=== PATIENT | male | born 1955 | race Hispanic/Latino ===

== ENCOUNTER 2018-12-18 19:52 | Inpatient (IN) | payer BC, MEDICARE ==
[2018-12-18 20:39] LABS: #Eosinphils 0.1 thou/uL (0.0-0.7); #Lymphocytes 0.9 thou/uL (1.20-3.40); #Monocytes 0.6 thou/uL (0.11-0.59); #Neutrophils 9.5 thou/uL (1.40-6.50); %Basophils 0.3 % (0.0-1.0); %Eosinophils 0.8 % (0.0-10.0); %Lymphocytes 8.1 % (21.0-51.0); %Monocytes 5.6 % (0.0-10.0); %Neutrophils 85.2 % (42.0-75.0); Hemoglobin 9.9 g/dL (14.0-18.0); Mean Corpuscular HGB CONC 32.8 g/dL (32.0-36.0); Mean Corpuscular Hemoglobin 30.2 pg (27.0-31.0); Platelet Count 381 thou/uL (130-400); RBC Distribution Width 11.8 % (11.5-14.5); Red Blood Cell (RBC) Count 3.27 mill/uL (4.70-6.10); White Blood Cell (WBC) Count 11.1 thou/uL (4.8-10.8)
--- NOTE | 2018-12-18 20:48 | RAD ---
FRONTAL RADIOGRAPH CHEST 12/18/18 COMPARISON: 01/08/17 HISTORY: Fever, sepsis. FINDINGS: Midline sternotomy wires are present, many of which are fractured. Heart and mediastinal contours are stable. there is no pneumothorax, pleural fluid, focal consolidation, or alveolar edema. IMPRESSION: No acute findings. POS: [facility]
[2018-12-18] MEDS ORDERED: Piperacillin/Tazobactam 3.375 GM VIAL ONE (20:52)
[2018-12-18 20:56] LABS: ALT (SGPT) 10 U/L (8-55); AST (SGOT) 17 U/L (5-34); Albumin 3.4 g/dL (3.4-4.8); Alkaline Phosphatase 122 U/L (40-150); Anion Gap 12 mmol/L (10-20); BUN (Urea Nitrogen) 19 mg/dL (8.4-25.7); Bilirubin, Total 0.3 mg/dL (0.2-1.2); Calc. Creatinine Clearance 0 mL/min (70-130); Calcium 8.9 mg/dL (7.8-10.44); Carbon Dioxide 21 mmol/L (23-31); Chloride 100 mmol/L (98-107); Estimated GFR-MDRD 39; Globulin 4.1 g/dL (2.4-3.5); Glucose 71 mg/dL (80-115); Potassium 4.3 mmol/L (3.5-5.1); Protein, Total 7.5 g/dL (5.8-8.1); Sodium 129 mmol/L (136-145)
--- NOTE | 2018-12-18 21:29 | PDOC.FPRHP ---
- History of Present Illness Chief Complaint: R great toe infection History of Present Illness: 63 yo M with uncontrolled T2DM, CAD s/p CABG, CKD3 presents for L 1st toe infection. 3 weeks ago had ingrown toenail removed by general counselor, followed by infection. Was admitted at [place], received 1 wk IV antibiotics and then recommended to have amputation. Patient left for 2nd opinion. Saw general counselor, Dr. Calderon @ [facility] who said he could save the foot. Has been on PO Augmentin, with toe worsening since. Presented today for low BG and feeling cold. Denies fever, otherwise feels alright. Intermittent throbbing of foot, denies pain. ED Course: vanc, zosyn, 1L, tylenol - History PMHx: DM2 uncontrolled, CAD, HTN, HLD, CKD3 PSHx: CABG, L leg angioplasty FHx: brother-DM Social: Denies tobacco, alcohol, drug use. - Review of Systems General: reports: fever/chills ENT: denies: nasal congestion, rhinorrhea Respiratory: denies: cough, shortness of breath Cardiovascular: denies: chest pain, edema Gastrointestinal: denies: nausea, diarrhea Skin: reports: lesions (R toe infection) Musculoskeletal: denies: pain - Vital signs BP: 156/104 HR: 116 RR: 24 Tmax: 102.8 Pox: 94% on RA Wt: 80 kg - Physical Exam Constitutional: NAD, awake, alert and oriented HEENT: normocephalic and atraumatic Heart: RRR, normal S1/S2 (systolic murmur heard best at aorta) Lungs: CTAB, no respiratory distress Abdomen: soft, non-tender, bowel sounds present Skin: good turgor, capillary refill <2 seconds, other (L 1st toe infection, dry gangrene worse on L medial side of toe. surrounding erythema) Psychiatric: normal mood and affect FMR H&P: Results - Labs Result Diagrams: 12/18/18 20:20 12/18/18 20:22 Lab results: WBC 11.1 thou/uL (4.8-10.8) H 12/18/18 20:20 Hgb 9.9 g/dL (14.0-18.0) L 12/18/18 20:20 Hct 30.1 % (42.0-52.0) L 12/18/18 20:20 MCV 92.0 fL (78.0-98.0) 12/18/18 20:20 Plt Count 381 thou/uL (130-400) 12/18/18 20:20 Neutrophils % 85.2 % (42.0-75.0) H 12/18/18 20:20 ESR Westergren Greater than 130 mm/hr (Less than 20) 12/18/18 20:20 Sodium 129 mmol/L (136-145) L 12/18/18 20:22 Potassium 4.3 mmol/L (3.5-5.1) 12/18/18 20:22 Chloride 100 mmol/L (98-107) 12/18/18 20:22 Carbon Dioxide 21 mmol/L (23-31) L 12/18/18 20:22 BUN 19 mg/dL (8.4-25.7) 12/18/18 20:22 Creatinine 1.80 mg/dL (0.7-1.3) H 12/18/18 20:22 Glucose 71 mg/dL (80-115) L 12/18/18 20:22 Lactic Acid 0.9 mmol/L (0.5-2.2) 12/18/18 20:22 Calcium 8.9 mg/dL (7.8-10.44) 12/18/18 20:22 Total Bilirubin 0.3 mg/dL (0.2-1.2) 12/18/18 20:22 AST 17 U/L (5-34) 12/18/18 20:22 ALT 10 U/L (8-55) 12/18/18 20:22 Alkaline Phosphatase 122 U/L (40-150) 12/18/18 20:22 C-Reactive Protein 9.34 mg/dL (= or < 0.5) H 12/18/18 20:20 Serum Total Protein 7.5 g/dL (5.8-8.1) 12/18/18 20:22 Albumin 3.4 g/dL (3.4-4.8) 12/18/18 20:22 FMR H&P: A/P - Problem List (1) Sepsis Current Visit: Yes Status: Acute Code(s): A41.9 - SEPSIS, UNSPECIFIED ORGANISM (2) Osteomyelitis Current Visit: Yes Status: Acute Code(s): M86.9 - OSTEOMYELITIS, UNSPECIFIED (3) Dry gangrene Current Visit: Yes Status: Acute Code(s): I96 - GANGRENE, NOT ELSEWHERE CLASSIFIED (4) Diabetes Current Visit: Yes Status: Acute Code(s): E11.9 - TYPE 2 DIABETES MELLITUS WITHOUT COMPLICATIONS (5) CKD (chronic kidney disease), stage III Current Visit: Yes Status: Acute Code(s): N18.3 - CHRONIC KIDNEY DISEASE, STAGE 3 (MODERATE) (6) Hyponatremia Current Visit: Yes Status: Acute Code(s): E87.1 - HYPO-OSMOLALITY AND HYPONATREMIA (7) CAD (coronary artery disease) Current Visit: Yes Status: Acute Code(s): I25.10 - ATHSCL HEART DISEASE OF [place] CORONARY ARTERY W/O ANG PCTRS (8) S/P CABG (coronary artery bypass graft) Current Visit: Yes Status: Acute Code(s): Z95.1 - PRESENCE OF AORTOCORONARY BYPASS GRAFT (9) HTN (hypertension) Current Visit: Yes Status: Acute Code(s): I10 - ESSENTIAL (PRIMARY) HYPERTENSION - Plan Sepsis 2/2 osteomyelitis/dry gangrene of L 1st toe - tachycardia, febrile, increased WBC on admission. Failed outpatient augmentin. - in setting of uncontrolled DM - ESR >130, CRP 9.3, lactic 0.9 - foot XR negative for osseous involvement. MRI pending - continue vanc and zosyn (12/18) started in ED - s/p 1L in ED, continue NS maintenance IVF - plan to consult surgery in am - tylenol prn fever Hyponatremia - Na+ 129 on admission - could be 2/2 hypovolemia. Pending urine studies. - monitor on am bmp T2DM, uncontrolled - A1c 12.1 on 11/12 - Accuchecks, SSI - considering BG 71 in ED and will hold home meds overnight CAD s/p CABG - continue home meds as appropriate pending med rec HTN - continue home meds as appropriate pending med rec CKD3 - GFR 39, appears to be at baseline compared to clinic chart - monitor on bmp Diet NPO after midnight Ppx: Lovenox Dispo: admit to inpatient medical, expected stay >2 midnights Case discussed with Dr. Alonzo. FMR H&P: Upper Level - Pertinent history 63 y/o M w/ PMHx of poorly controlled DM w/ last A1c from 11/12 at 12.1 from clinic records who presents for eval of fever. Reports ingrown toenail removal approx. 3 weeks ago by general counselor w/ subsequent infection. Notes he was admitted to [facility] for about 1 week and d/c'ed on PO augmentin. He was told that he needed his leg amputated (BKA) and stated he wanted to go home for a second opinion. He saw general counselor at [facility] who thought he could save the leg. Reports taking the Augmentin as perscribed, but noted fever low BG at home. Reports chills, otherwise denies any other sxs and reports he feels "all right". Has been tolerating PO w/o issue. No N/V/D. Reports intermittent throbbing of the affected R-big toe, denies any current pain. Denies any CP/SOB. - Pertinent findings BP 156/104 P 107 RR 24 Temp 102.8 degF O2Sat 94% on RA CXR - NAD Foot 3V - NAD ESR >130 CRP - 9.34 WBC - 11.1 Hgb - 9.9 Hct - 30.1 Plt - 381 Neut - 85.2% Na - 129 BUN - 19 Cr -1.8 Gluc - 71 LA - 0.9 PE: Gen: NAD, resting in bed comfortably answering questions appropriately CARD: Tachycardic, 3/6 systolic murmur PULM: CTA-b/l, no wheezes, rubs, or gallops GI: Soft, non-ttp, bsx4. EXT: necrotic black lesion on lateral aspect of 1st digit L-foot w/ minimal surrounding erythema and no drainage noted. - Plan Date/Time: 12/18/182126 Mario Limon. Espinoza Cat MD, have evaluated this patient and agree with findings/plan as outlined by internal audit manager resident. Pertinent changes/additions are listed here. 63 y/o M w/: 1) Sepsis likely 2/2 Osteomyelitis of the 1st digit L-foot - Will place patient on broad spectrum abx w/ Vanc and Zosyn. No drainage for wound Cx to be obtained. BCx and UCx obtained in ER - S/p 2L NS in ER. Will continue w/ standard 30 mL/Kg IVF resuscitation w/ strict I/O's to monitor fluid status - Tylenol PRN for fever and pain control - Will obtain MRI for further eval 2/2 no lytic lesions seen on radiographs - Plan to consult surgery in the AM for further eval and need for possible amputation - Will place on SSI w/ AC/HS accuchecks. Will decrease long acting insulin from 20 units to 10 in setting of low BG w/ infection w/ goal BG 140-180. 2) Hyponatremia - Unsure etiology, possibly 2/2 hypovolemia in setting of #1 - Will obtain urine Na, urine osm, and serum osm to further eval. Will add on to specimens obtained prior to IVF administration - Repeat BMP in the AM for possible resolution s/p IVF rescucitation in setting of #1 3) Other chronic medical problems per internal audit manager note Assessment and Plan discussed w/ Dr. Alonzo who is in agreement
--- NOTE | 2018-12-18 21:40 | RAD ---
RIGHT FOOT THREE VIEWS: 12/18/18 COMPARISON: None. HISTORY: Gangrene. FINDINGS: There is scattered arterial calcifications. There is mild degenerative change at the first metatarsop halangeal joint. There is no displaced fracture or evidence of dislocation seen. There is atherosclerotic calcification at the level of the ankle and plantar aspect of the foot. Ther e is enthesophyte formation at the origin of the plantar aponeurosis. IMPRESSION: Degenerative change and vascular calcification. No acute osseous abnormality noted. POS: [facility]
[2018-12-18] MEDS ORDERED: Acetaminophen 325 MG TAB ONE (23:14)
[2018-12-19] MEDS ORDERED: Dextrose 5% in Water 1,000 ML IV PRN (02:04)
[2018-12-19] MEDS ORDERED: Ondansetron ODT 4 MG TAB PO PRN (02:04)
[2018-12-19] MEDS: Piperacillin/Tazobactam 3.375 GM in Sodium Chloride 0.9% 100 ML IVPB SCH ×4 (04:35→20:59)
[2018-12-19] MEDS: Sodium Chloride 0.9% 1,000 ML IV SCH ×2 (04:43→14:50)
--- NOTE | 2018-12-19 06:35 | PDOC.FM ---
- Subjective Subjective: NAEO. Patient states he is having pain in his left toe this morning. States it is throbbing. Patient also states that he wishes to see Dr. Calderon at [facility]. He states he knows his history and performed surgery on his other foot. Patient states that he does not want another opinion and only wants to see the doctor at [facility] for treatment. - Objective MAR Reviewed: Yes Vital Signs & Weight: Vital Signs (12 hours) Temp Pulse Resp BP Pulse Ox 12/19/18 04:30 97.9 F 81 18 142/71 H 12/18/18 20:01 98.2 F 81 22 H 136/61 96 Weight Weight 80.74 kg Result Diagrams: 12/19/18 06:07 12/19/18 06:07 Phys Exam - Physical Examination Constitutional: NAD HEENT: PERRLA, moist MMs, sclera anicteric Neck: supple, full ROM Respiratory: clear to auscultation bilateral Cardiovascular: RRR Gastrointestinal: soft, non-tender, positive bowel sounds Musculoskeletal: no edema, pulses present dry gangrene of L first metatarsal Neurological: non-focal Psychiatric: normal affect, A&O x 3 Dx/Plan (1) CAD (coronary artery disease) Code(s): I25.10 - ATHSCL HEART DISEASE OF [place] CORONARY ARTERY W/O ANG PCTRS Status: Acute (2) CKD (chronic kidney disease), stage III Code(s): N18.3 - CHRONIC KIDNEY DISEASE, STAGE 3 (MODERATE) Status: Acute (3) Diabetes Code(s): E11.9 - TYPE 2 DIABETES MELLITUS WITHOUT COMPLICATIONS Status: Acute (4) Dry gangrene Code(s): I96 - GANGRENE, NOT ELSEWHERE CLASSIFIED Status: Acute (5) HTN (hypertension) Code(s): I10 - ESSENTIAL (PRIMARY) HYPERTENSION Status: Acute (6) Hyponatremia Code(s): E87.1 - HYPO-OSMOLALITY AND HYPONATREMIA Status: Acute (7) Osteomyelitis Code(s): M86.9 - OSTEOMYELITIS, UNSPECIFIED Status: Acute - Plan Plan: Sepsis 2/2 osteomyelitis/dry gangrene of L 1st toe - tachycardia, febrile, increased WBC on admission. Failed outpatient augmentin. - in setting of uncontrolled DM - A1C 12.1 last month - ESR >130, CRP 9.3, lactic 0.9 - foot XR negative for osseous involvement. MRI pending - continue vanc and zosyn (12/18) started in ED - s/p 1L in ED, continue NS maintenance IVF - Plan was to consult gen surgery today; Patient states that he does not want to see a general surgeon here and would like to see Dr. Calderon, podiatry at [facility]. Will discuss this further with patient on rounds today that we recommend he see a general surgeon for possible amputation of at the least the great toe. If patient still wants to leave, will have patient sign paperwork. Recommend to follow up immediately with Dr. Calderon if he chooses to leave. - tylenol prn for fever Hyponatremia - Na+ 129 on admission -> 130 - could be 2/2 hypovolemia. Urine studies unable to be collected as urine was not collected prior to fluids. - monitor on am bmp T2DM, uncontrolled - A1c 12.1 on 11/12 - Accuchecks, SSI - considering BG 71 in ED and will hold home meds overnight as NPO CAD s/p CABG - continue home meds HTN - continue home meds CKD3 - GFR 39, appears to be at baseline compared to clinic chart - monitor on bmp Diet NPO due to possible procedure Ppx: Lovenox Dispo: monitor on inpatient medical, expected stay >2 midnights Addendum - Attending - Attending Attestation Date/Time: 12/19/18 2284 I personally evaluated the patient and discussed the management with Dr. Hurst. I agree with the History, Examination, Assessment and Plan documented above with any addition or exceptions noted below. Gangrenous L great lateral toe with probable osteomyelitis- ESR >130 and presented with sepsis- on IV Vanc/zosyn. Continue IVF. Patient requesting transfer to [facility] because his outpatient physicians are there. An attempt was made for ER to ER transfer last night but evidently [facility] was full and unable to accept. At this point it would be a lateral transfer to [facility]. Patient initially wanting to leave AMA and go directly to [facility] ER. We discussed that it was his option but that insurance coverage may be an issue and that we are happy to care for him here. He desires to stay and get treatment here. We are getting an MRI and will consult general surgery T2DM- uncontrolled- SSI and then restart home meds once on a diet.] CKD stage III- trend Cr.
[2018-12-19 07:00] LABS: #Monocytes 0.9 thou/uL (0.11-0.59); #Neutrophils 8.2 thou/uL (1.40-6.50); %Basophils 0.1 % (0.0-1.0); %Eosinophils 0.3 % (0.0-10.0); %Lymphocytes 10.1 % (21.0-51.0); %Monocytes 8.6 % (0.0-10.0); %Neutrophils 80.9 % (42.0-75.0); Mean Corpuscular HGB CONC 32.9 g/dL (32.0-36.0); Mean Corpuscular Hemoglobin 30.2 pg (27.0-31.0); Mean Platelet Volume 7.2 fL (7.4-10.4); Platelet Count 340 thou/uL (130-400); RBC Distribution Width 11.9 % (11.5-14.5); Red Blood Cell (RBC) Count 2.96 mill/uL (4.70-6.10); White Blood Cell (WBC) Count 10.1 thou/uL (4.8-10.8)
[2018-12-19 07:11] LABS: Anion Gap 13 mmol/L (10-20); BUN (Urea Nitrogen) 20 mg/dL (8.4-25.7); Calc. Creatinine Clearance 45 mL/min (70-130); Calcium 8.1 mg/dL (7.8-10.44); Carbon Dioxide 20 mmol/L (23-31); Chloride 101 mmol/L (98-107); Estimated GFR-MDRD 35; Glucose 70 mg/dL (80-115); Potassium 4.3 mmol/L (3.5-5.1); Sodium 130 mmol/L (136-145)
[2018-12-19] MEDS: Atorvastatin Calcium 40 MG TAB PO SCH (09:14)
[2018-12-19 09:15] LABS: Bilirubin Negative (Negative); Blood, Urine Moderate (Negative); Clarity CLEAR (Clear); Glucose, Urine (Dipstick) Negative (Negative); Leukocyte Negative (Negative); Nitrite Negative (Negative); Protein, Urine (Dipstick) 300 mg/dL (Neg-Trace); Specific Gravity, Urine 1.009 (1.002-1.036); Urobilinogen 0.2 mg/dL (0.2-1.0)
[2018-12-19] MEDS: Acetaminophen 325 MG TAB PO PRN ×2 (09:15→21:00)
[2018-12-19] MEDS: Aspirin Chewable 81 MG TAB PO SCH (09:15)
[2018-12-19] MEDS: Enoxaparin Sodium 40 MG/0.4 ML SYRINGE SC SCH ×2 (09:16→10:37)
[2018-12-19 09:18] LABS: Urine Culture Reflex No No
[2018-12-19] MEDS: Amlodipine 5 MG TAB PO SCH ×2 (09:23→21:00)
[2018-12-19] MEDS ORDERED: Gadobenate Dimeglumine 529 MG/1 ML (20ML VIAL) ONE (10:27)
[2018-12-19] MEDS ORDERED: Morphine 4 MG/ML VIAL ONE (11:36)
[2018-12-19] MEDS: Morphine 4 MG/ML VIAL SLOW IVP PRN ×3 (11:48→20:55)
[2018-12-19] MEDS: Carvedilol 25 MG TAB PO SCH ×2 (11:50→21:00)
--- NOTE | 2018-12-19 16:25 | MRI ---
MRI OF LEFT FOOT PERFORMED WITH AND WITHOUT CONTRAST ENHANCEMENT: 12/19/18 HISTORY: Left foot pain with swelling x1 week. No history of any open wound. The pain is diffuse. Examination was tailored to the mid to forefoot region. There is uneven fat saturation in the toe region on the postcontrast images. Signal change within the metatarsals and phalanges is normal on the STIR sequence without evidence of any marrow edema change . There are some arthritic changes of the base of the fourth metatarsal and some arthritic change at the level of the first metatarsophalangeal joint. No signs of any stress reaction or fracture. No sof t tissue fluid collections or signs of abscess. IMPRESSION: Unremarkable MRI of the foot. POS: [facility]
[2018-12-19] MEDS: Vancomycin HCl 1.25 GM in Sodium Chloride 0.9% 250 ML 250 ML IVPB SCH (22:14)
--- NOTE | 2018-12-19 22:55 | CON ---
DATE OF CONSULTATION: 12/19/2018 REASON FOR CONSULTATION: Dry gangrene. HISTORY: Mr. Stacy is a 63-year-old gentleman with past medical historyof diabetes, coronary artery disease, peripheral vascular disease, hypertension, chronic kidney disease, and hyperlipidemia. He presented to the emergency room with low blood sugars and feeling cold. He has not been having any fevers, but is complaining of a lot of throbbing pain in his left foot. He underwent removal of an ingrown toenail last month by a conveyor feeder and developed an infection. He was admitted to [place], underwent angiography and was told that he needed a below-knee amputation. He decided to seek a second opinion and has been on oral Augmentin, but states that the toe is getting worse and he is having more pain. He does not think that he saw a vascular surgeon in [place]. OUTPATIENT MEDICATIONS: 1. Glargine 26 units subcutaneous daily. 2. Amlodipine 5 mg p.o. b.i.d. 3. Aspirin 81 mg p.o. daily. 4. Atorvastatin 40 mg p.o. daily. 5. Carvedilol 25 mg p.o. b.i.d. 6. Liraglutide 1.8 mg subcutaneous daily. 7. Fish oil capsule daily. INPATIENT MEDICATIONS: Include; 1. Amlodipine. 2. Aspirin. 3. Atorvastatin. 4. Carvedilol. 5. Lovenox. 6. Fish oil. 7. Sliding scale insulin. 8. Victoza. 9. Zosyn. 10. Vancomycin. ALLERGIES: HE HAS NO KNOWN DRUG ALLERGIES. PAST MEDICAL HISTORY: Uncontrolled diabetes, coronary artery disease, status post four vessel coronary artery bypass grafting, hypertension, hyperlipidemia, and chronic kidney disease, not on dialysis. PAST SURGICAL HISTORY: Four vessel coronary artery disease, angioplasty of the left leg, and right transmetatarsal amputation. FAMILY HISTORY: Diabetes. SOCIAL HISTORY: He does not smoke, drink, or use illicit drugs. He lives independently and is ambulatory. REVIEW OF SYSTEMS: Ten system review of systems is negative except per HPI. He denies any rest pain or claudication. PHYSICAL EXAMINATION: VITAL SIGNS: The patient has been afebrile since admission yesterday. Heart rate 82, respirations 20, 94% saturation on room air, and blood pressure 135/79. GENERAL: Reveals a pleasant gentleman in no acute distress. He is not flushed or toxic in appearance. He is not jaundiced or icteric. HEENT: Unremarkable. NECK: Supple without lymphadenopathy or thyroid nodules. HEART: Regular in its rate and rhythm with a soft systolic murmur. He has a healed sternotomy incision. LUNGS: Clear to auscultation bilaterally. ABDOMEN: Soft, nontender, and nondistended without any palpable masses or hernias. EXTREMITIES: Equal with slightly delayed capillary refill. He has an eschar on the dorsum of his left great toe with some mild erythema extending up onto the forefoot adjacent to this. No fluctuance or drainage. No palpable pulses in the feet. Palpable popliteal pulses bilaterally. No palpable pulses on the right foot, but a healed transmetatarsal amputation. NEUROLOGIC: No focal deficits. PSYCHIATRIC: Alert, oriented, and appropriate. LABORATORY DATA: White count is normal at 10 with a slight left shift of 80%, segmented neutrophils, and hematocrit is 27. Sodium 130, bicarb 20, creatinine 1.95. Glucose has been running on the low in the 70 to 75. UA is positive for protein and moderate blood. DIAGNOSTIC STUDIES: MRI today was unremarkable. ASSESSMENT: Dry gangrene with significant pain. The patient has been told he needs a below-knee amputation and I agreed that it might be very difficult for him to heal amputation distal to this level. I do not think he would heal a toe amputation based on his bedside exam, transmetatarsal amputation is a possibility, but healing this might be difficult as well. 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 He has reconstitution of what looks like posterior tibial vessel to below the ankle, but really no other significant runoff below the ankle. Since he has not seen a vascular surgeon, I have asked Dr. Barnard to see him and give his opinion on whether he might be able to do any sort of intervention to improve the blood flow to his foot; if this is not feasible, then I would like his opinion on whether he would be able to heal anything below a below-knee amputation. I have made the patient n.p.o. after midnight because he does not want to continue with conservative management. He is ready to proceed with below-knee amputation if that is his best option due to the persistent pain in his foot. Job ID: [id number]
--- NOTE | 2018-12-20 00:49 | CON ---
DATE OF CONSULTATION: HISTORY OF PRESENT ILLNESS: This is a 63-year-old gentleman with diabetes, hypertension, and dyslipidemia, who developed an ingrown toenail on his left great toe about 2 weeks ago. Due to pain, he was seen in both [facility] and [place], ultimately going to [facility] due to hospitals being full. He underwent angiography there with no intervention. He then was admitted to [place] due to progressive pain and fever after seeing Dr. Calderon about a week ago and placed on antibiotics. He complains of significant pain. He was febrile with an elevated white count on admission. An x-ray of his foot demonstrated calcified posterior tibial and anterior tibial vessels into the foot. PAST MEDICAL HISTORY: As noted above. PAST SURGICAL HISTORY: Includes coronary artery bypass grafting at [facility] by Dr. Urrutia about 3 years ago. He then underwent transmetatarsal amputation of his right foot after a failed toe amputation about 1 year ago at [facility]. SOCIAL HISTORY: He is no longer a smoker. He is accompanied by his . PHYSICAL EXAMINATION: On examination, he has palpable femoral and popliteal pulses bilaterally with no palpable pedal pulses. He has a well-healed trans met amputation on the right. He has good Doppler signal in his posterior tibial on the right, extending down into the dorsum of his foot. On the left leg, he has a very good posterior tibial signal above the medial malleolus and a fairly well preserved signal at the level of the medial malleolus. However, this signal does not track into the forefoot by Doppler. He has no significant Doppler signal in his dorsalis pedis distribution or peroneal artery distribution. He has some cellulitis extending on the dorsum of his foot over the 1st metatarsal head to about the level of the ankle. His toe was blue with some necrotic skin medially between his 1st and 2nd toes involving his great toe. Tender to palpation, bluish discoloration of the toe. The plantar surface of his foot is nonswollen and nontender. LABORATORY DATA: I have reviewed his angiogram data from [facility] and he has occluded anterior tibial on the left, heavily diseased peroneal that tapers out in the distal calf and the posterior tibial that is patent to the level of medial malleolus, where it has two subtotal occlusions and then the vessel does not go much past the bifurcation into the anterior and posterior branches of the posterior tibial artery. I have reviewed a CT scan from [facility] from about a year ago and it is consistent with the findings on the angiogram. At this time, I think the likelihood of a transmetatarsal healing without inline flow to the foot is unlikely, and I would say probably less than 20% chance. A BKA has a good likelihood of healing. I have discussed this with the patient. He is not really interested in multiple procedures and prefers a leg amputation as the initial procedure. Job ID: [id number]
[2018-12-20] MEDS: Piperacillin/Tazobactam 3.375 GM in Sodium Chloride 0.9% 100 ML IVPB SCH ×4 (02:58→21:55)
[2018-12-20] MEDS: Morphine 4 MG/ML VIAL SLOW IVP PRN ×3 (06:04→22:55)
[2018-12-20 06:32] LABS: #Eosinphils 0.1 thou/uL (0.0-0.7); #Monocytes 0.8 thou/uL (0.11-0.59); #Neutrophils 5.6 thou/uL (1.40-6.50); %Basophils 0.6 % (0.0-1.0); %Eosinophils 1.8 % (0.0-10.0); %Lymphocytes 13.6 % (21.0-51.0); %Monocytes 10.7 % (0.0-10.0); %Neutrophils 73.4 % (42.0-75.0); Hemoglobin 8.7 g/dL (14.0-18.0); Mean Corpuscular Hemoglobin 29.6 pg (27.0-31.0); Mean Corpuscular Volume 92.5 fL (78.0-98.0); Mean Platelet Volume 7.2 fL (7.4-10.4); Platelet Count 298 thou/uL (130-400); RBC Distribution Width 11.9 % (11.5-14.5); Red Blood Cell (RBC) Count 2.94 mill/uL (4.70-6.10); White Blood Cell (WBC) Count 7.6 thou/uL (4.8-10.8)
--- NOTE | 2018-12-20 06:37 | PDOC.FM ---
Addendum entered and electronically signed by Lesly Hurst MD 12/20/18 09:13 : Will give morphine for pain Original Note: - Subjective Subjective: NAEO. Patient reports continued pain on LLE. Patient states he is ready for the procedure and to get rid of his pain. Patient denies SOB, chest pain, abdominal pain, NVD. - Objective MAR Reviewed: Yes Vital Signs & Weight: Vital Signs (12 hours) Temp Pulse Resp BP Pulse Ox 12/20/18 03:35 98.2 F 79 16 125/60 12/20/18 00:05 98.2 F 85 18 119/90 12/19/18 21:00 88 12/19/18 19:58 100.0 F H 88 18 132/67 91 L Weight Admit Weight 80.739 kg Weight 80.74 kg I&O: 12/18/18 12/19/18 12/20/18 06:59 06:59 06:59 Intake Total 1480 Output Total 800 Balance 680 Result Diagrams: 12/20/18 05:46 12/20/18 05:45 Phys Exam - Physical Examination Constitutional: NAD HEENT: PERRLA, moist MMs, sclera anicteric Neck: full ROM Respiratory: clear to auscultation bilateral Cardiovascular: RRR Gastrointestinal: soft, non-tender, no distention, positive bowel sounds necrotic L 1st metatarsal, warm LE, pedal pulse faint Neurological: non-focal Psychiatric: normal affect, A&O x 3 Dx/Plan (1) CAD (coronary artery disease) Code(s): I25.10 - ATHSCL HEART DISEASE OF [place] CORONARY ARTERY W/O ANG PCTRS Status: Acute (2) CKD (chronic kidney disease), stage III Code(s): N18.3 - CHRONIC KIDNEY DISEASE, STAGE 3 (MODERATE) Status: Acute (3) Diabetes Code(s): E11.9 - TYPE 2 DIABETES MELLITUS WITHOUT COMPLICATIONS Status: Acute (4) Dry gangrene Code(s): I96 - GANGRENE, NOT ELSEWHERE CLASSIFIED Status: Acute (5) HTN (hypertension) Code(s): I10 - ESSENTIAL (PRIMARY) HYPERTENSION Status: Acute (6) Hyponatremia Code(s): E87.1 - HYPO-OSMOLALITY AND HYPONATREMIA Status: Acute (7) Osteomyelitis Code(s): M86.9 - OSTEOMYELITIS, UNSPECIFIED Status: Acute - Plan Plan: Sepsis 2/2 osteomyelitis/dry gangrene of L 1st toe - tachycardia, febrile, increased WBC on admission. Failed outpatient augmentin. - in setting of uncontrolled DM - A1C 12.1 last month - ESR >130, CRP 9.3, lactic 0.9 - foot XR negative for osseous involvement. MRI showing no osteo. - continue vanc and zosyn (12/18) started in ED; will continue w/ abx - s/p 1L in ED, continue NS maintenance IVF - Patient decided to stay at [facility] for treatment. General surgery consulted - recommend BKA. Dr. Barnard was also asked to give his opinion if any intervention could be done to help with healing below the knee, but it was recommended that a BKA would be the best option. Patient has agreed to move forward with the procedure. Hyponatremia - Na+ 129 on admission -> 130 - could be 2/2 hypovolemia. Urine studies unable to be collected as urine was not collected prior to fluids. - monitor on am bmp T2DM, uncontrolled - A1c 12.1 on 11/12 - Accuchecks, SSI - considering BG 71 in ED and will hold home meds overnight as NPO CAD s/p CABG - continue home meds HTN - continue home meds CKD3 - GFR 39, appears to be at baseline compared to clinic chart - monitor on bmp Diet NPO due to procedure Dispo: monitor on inpatient medical, BKA planned for today, will follow up post procedure Addendum - Attending - Attending Attestation Date/Time: 12/20/18 6357 I personally evaluated the patient and discussed the management with Dr. Hurst I agree with the History, Examination, Assessment and Plan documented above with any addition or exceptions noted below. Dry gangrene of L great toe- patient to go for BKA this am t2dm- continue SSI CKD-continue IVF and check cr daily Low back pain- patient with acute low back pain this am. On exam pain in L paralumbar muscles with spasm. Continue heating pad and morphine. May consider muscle relaxer if persists after surgery.
[2018-12-20 06:57] LABS: Anion Gap 10 mmol/L (10-20); BUN (Urea Nitrogen) 18 mg/dL (8.4-25.7); Calc. Creatinine Clearance 43 mL/min (70-130); Calcium 8.4 mg/dL (7.8-10.44); Carbon Dioxide 23 mmol/L (23-31); Chloride 101 mmol/L (98-107); Estimated GFR-MDRD 33; Glucose 66 mg/dL (80-115); Potassium 4.2 mmol/L (3.5-5.1); Sodium 130 mmol/L (136-145)
[2018-12-20] MEDS: Aspirin Chewable 81 MG TAB PO SCH (07:55)
[2018-12-20] MEDS: Enoxaparin Sodium 40 MG/0.4 ML SYRINGE SC SCH (07:56)
[2018-12-20] MEDS: Amlodipine 5 MG TAB PO SCH ×2 (08:28→21:56)
[2018-12-20] MEDS: Fish Oil 1,000 MG CAP PO SCH (08:28)
[2018-12-20] MEDS: Carvedilol 25 MG TAB PO SCH ×2 (08:28→21:56)
[2018-12-20] MEDS: Atorvastatin Calcium 40 MG TAB PO SCH (08:28)
[2018-12-20] MEDS: Sodium Chloride 0.9% 1,000 ML IV SCH ×2 (11:12→22:49)
[2018-12-20] MEDS ORDERED: Dexamethasone 20 MG/5 ML VIAL ONE (12:16)
[2018-12-20] MEDS ORDERED: PROPOFOL 200 MG/20 ML VIAL ONE (12:16)
[2018-12-20] MEDS ORDERED: Ondansetron PF 4 MG/2 ML Vial ONE ×2 (12:16→16:49)
[2018-12-20] MEDS ORDERED: Fentanyl 100 MCG/2 ML VIAL ONE ×4 (12:36→17:38)
[2018-12-20] MEDS ORDERED: Bacitracin Zinc Ointment 30 gm TUBE ONE (14:08)
[2018-12-20] MEDS ORDERED: Promethazine HCl 25 MG/ML VIAL IM PRN (14:51)
[2018-12-20] MEDS ORDERED: Ondansetron HCl/PF 4 MG/2 ML Vial IVP PRN (14:51)
[2018-12-20] MEDS ORDERED: Promethazine HCl 25 MG/ML VIAL SLOW IVP PRN (14:51)
[2018-12-20] MEDS ORDERED: Morphine 2 MG/ML SYRINGE SLOW IVP PRN (15:09)
[2018-12-20] MEDS ORDERED: Acetaminophen 1,000 MG in Premix Bag 1 BAG IVPB PRN (15:11)
[2018-12-20] MEDS ORDERED: Promethazine HCl 25 MG/ML VIAL ONE (15:18)
[2018-12-20] MEDS: HumaLOG 300 UNITS/3 ML VIAL SC PRN (22:42)
[2018-12-20] MEDS: Vancomycin HCl 1.25 GM in Sodium Chloride 0.9% 250 ML 250 ML IVPB SCH (22:43)
[2018-12-20] MEDS: Morphine 2 MG/ML SYRINGE SLOW IVP SCH (23:09)
[2018-12-21] MEDS: Piperacillin/Tazobactam 3.375 GM in Sodium Chloride 0.9% 100 ML IVPB SCH ×4 (03:18→21:50)
[2018-12-21] MEDS: Sodium Chloride 0.9% 1,000 ML IV SCH ×3 (03:19→22:51)
[2018-12-21] MEDS: Morphine 4 MG/ML VIAL SLOW IVP PRN (05:30)
[2018-12-21] MEDS: HumaLOG 300 UNITS/3 ML VIAL SC PRN ×3 (05:31→18:25)
[2018-12-21 06:39] LABS: #Eosinphils 0.1 thou/uL (0.0-0.7); #Lymphocytes 0.8 thou/uL (1.20-3.40); #Monocytes 0.4 thou/uL (0.11-0.59); #Neutrophils 10.2 thou/uL (1.40-6.50); %Basophils 0.2 % (0.0-1.0); %Eosinophils 0.6 % (0.0-10.0); %Lymphocytes 7.1 % (21.0-51.0); %Monocytes 3.2 % (0.0-10.0); %Neutrophils 88.9 % (42.0-75.0); Hemoglobin 7.9 g/dL (14.0-18.0); Mean Corpuscular HGB CONC 32.6 g/dL (32.0-36.0); Mean Corpuscular Hemoglobin 29.6 pg (27.0-31.0); Mean Corpuscular Volume 90.7 fL (78.0-98.0); Mean Platelet Volume 7.6 fL (7.4-10.4); Platelet Count 305 thou/uL (130-400); RBC Distribution Width 11.9 % (11.5-14.5); Red Blood Cell (RBC) Count 2.67 mill/uL (4.70-6.10); White Blood Cell (WBC) Count 11.5 thou/uL (4.8-10.8)
--- NOTE | 2018-12-21 06:39 | PDOC.FM ---
- Subjective Subjective: NAEO. Patient states minimal pain this morning, improved from yesterday. States the pain medication he is currently on is controlling the pain. Denies SOB, chest pain, abdominal pain, NVD. - Objective MAR Reviewed: Yes Vital Signs & Weight: Vital Signs (12 hours) Temp Pulse Resp BP BP Pulse Ox 12/21/18 04:48 97.8 F 64 16 122/77 94 L 12/21/18 00:00 98 F 69 16 125/77 96 12/20/18 21:56 73 136/78 12/20/18 20:25 93 L 12/20/18 19:45 98.8 F 74 18 148/79 H 93 L Weight Admit Weight 80.739 kg Weight 80.74 kg I&O: 12/19/18 12/20/18 12/21/18 06:59 06:59 06:59 Intake Total 2170 Output Total 2400 Balance -230 Result Diagrams: 12/21/18 06:03 12/21/18 06:03 Phys Exam - Physical Examination Constitutional: NAD HEENT: PERRLA, moist MMs, sclera anicteric Neck: supple, full ROM Respiratory: clear to auscultation bilateral Cardiovascular: RRR Gastrointestinal: soft, non-tender, no distention, positive bowel sounds Neurological: non-focal left BKA wrapped Psychiatric: normal affect Dx/Plan (1) CAD (coronary artery disease) Code(s): I25.10 - ATHSCL HEART DISEASE OF [place] CORONARY ARTERY W/O ANG PCTRS Status: Acute (2) CKD (chronic kidney disease), stage III Code(s): N18.3 - CHRONIC KIDNEY DISEASE, STAGE 3 (MODERATE) Status: Acute (3) Diabetes Code(s): E11.9 - TYPE 2 DIABETES MELLITUS WITHOUT COMPLICATIONS Status: Acute (4) Dry gangrene Code(s): I96 - GANGRENE, NOT ELSEWHERE CLASSIFIED Status: Acute (5) HTN (hypertension) Code(s): I10 - ESSENTIAL (PRIMARY) HYPERTENSION Status: Acute (6) Hyponatremia Code(s): E87.1 - HYPO-OSMOLALITY AND HYPONATREMIA Status: Acute (7) Osteomyelitis Code(s): M86.9 - OSTEOMYELITIS, UNSPECIFIED Status: Acute - Plan Plan: Sepsis 2/2 osteomyelitis/dry gangrene of L 1st toe - tachycardia, febrile, increased WBC on admission. Failed outpatient augmentin. - in setting of uncontrolled DM - A1C 12.1 last month - ESR >130, CRP 9.3, lactic 0.9 - foot XR negative for osseous involvement. MRI showing no osteo. - continue vanc and zosyn (12/18) started in ED - s/p 1L in ED, continue NS maintenance IVF - General surgery: patient is POD 1 from BKA. Pain control with tylenol, morphin and norco. Appreciate gen surg recommendations. Hyponatremia - Na+ 129 on admission -> 130 -> 127 - could be 2/2 hypovolemia. Urine studies unable to be collected as urine was not collected prior to fluids. - Will continue IVF - monitor on am bmp T2DM, uncontrolled - A1c 12.1 on 11/12 - Accuchecks, SSI - considering BG 71 in ED and will hold home meds overnight as NPO CAD s/p CABG - continue home meds HTN - continue home meds CKD3 - GFR 39, appears to be at baseline compared to clinic chart - monitor on bmp Diet CC Dispo: s/p BKA, will continue to monitor, dc in 1-2 days Addendum - Attending - Attending Attestation Date/Time: 12/21/182127 I personally evaluated the patient at 1000 am and discussed the management with Dr. Hurst I agree with the History, Examination, Assessment and Plan documented above with any addition or exceptions noted below. pod #1 s/p L BKA for dry gangrene and PVD- recovering well 1/2 MRSA pos blood cx- patient afebrile and no sign of invasive MRSA infection. Most likely contaminant t2dm- restart home meds and SSI. Goal sugars <180 YESSICA- will give IVF and adjust abx dosage. Repeat in am. If continuing to worsen will call nephrology
[2018-12-21 06:56] LABS: Anion Gap 15 mmol/L (10-20); BUN (Urea Nitrogen) 29 mg/dL (8.4-25.7); Calc. Creatinine Clearance 39 mL/min (70-130); Calcium 7.9 mg/dL (7.8-10.44); Carbon Dioxide 16 mmol/L (23-31); Chloride 101 mmol/L (98-107); Estimated GFR-MDRD 29; Glucose 305 mg/dL (80-115); Potassium 4.5 mmol/L (3.5-5.1); Sodium 127 mmol/L (136-145)
--- NOTE | 2018-12-21 07:01 | PDOC.OP ---
Operative Note - Operative Note Operative Note: PROCEDURE: Left below-knee amputation DATE OF PROCEDURE: 12/20/2018 SURGEON: Ellie Plaza M.D. PREOPERATIVE DIAGNOSES: Left first toe gangrene with non-reconstructable peripheral vascular disease POSTOPERATIVE DIAGNOSIS: Left first toe gangrene with non-reconstructable peripheral vascular disease HISTORY: Patient is a 63-year-old man with diabetes. He underwent resection of an ingrown toenail and developed gangrene postoperatively. He has undergone angiography and does not have any good circulation below the calf and does not have any good targets for revascularization of the foot. He has decided to undergo left below-knee amputation due to chronic pain in his foot. PROCEDURE IN DETAIL: After informed consent was obtained and appropriate preoperative antibiotics continued patient was taken to the operating room and was placed in supine position and general anesthesia was administered. The leg was prepped and draped in the standard sterile fashion and a short anterior long posterior flap measured out and marked on the skin. The anterior skin incision was made and dissection carried down through the muscles clearing the tibia anteriorly. The anterior tibial vessels were encountered and individually clamped divided and suture ligated. The periosteum was elevated and a Gigli saw used to transect the tibia, angling upward along the anterior edge to prevent a sharp corner anteriorly. The remaining muscles between the tibia and fibula were then divided with electrocautery and the fibula cleared anterior and laterally. Rib lewis were used to transect the fibula several centimeters proximal to the site of transection of the tibia. The skin and subcutaneous fat of the posterior flap were then divided using Bovie electrocautery, ligating the saphenous vein as it was encountered. The amputation blade was placed behind the tibia and fibula and the lower leg amputated. The posterior tibial and peroneal vessels were identified and clamped. The soleus muscle was trimmed back and the posterior tibial and peroneal vessels were sequentially and individually clamped, divided, and suture ligated high in the wound.. The accompanying nerves were pulled down into the field, clamped and ligated and allowed to retract into the soft tissues. Multiple bleeding points in the muscle were controlled with electrocautery. The wound was copiously irrigated and examined for hemostasis, which was obtained using electrocautery. The anterior edge of the tibia was smoothed as well as the fibula was smoothed. The wound was again irrigated and examined for hemostasis which was excellent. The posterior flap had to be trimmed somewhat to allow closure. The muscular fascia was approximated over the stump with interrupted [id number] 2-0 Vicryl sutures and the skin was closed with skin travon. Iodoform, gauze, Kerlix and Huang wrap dressings were placed and secured with tape. The patient's leg was placed in a knee immobilizer. The patient was extubated and taken to recovery in good condition. There were no complications. The patient tolerated the procedure well. ESTIMATED BLOOD LOSS: 100 mL SPECIMEN: Left leg
[2018-12-21] MEDS ORDERED: Sodium Chloride 0.9% 1,000 ML IV SCH (08:00)
[2018-12-21] MEDS: Amlodipine 5 MG TAB PO SCH ×2 (09:40→21:20)
[2018-12-21] MEDS: Fish Oil 1,000 MG CAP PO SCH (09:40)
[2018-12-21] MEDS: Atorvastatin Calcium 40 MG TAB PO SCH (09:40)
[2018-12-21] MEDS: Aspirin Chewable 81 MG TAB PO SCH (09:40)
[2018-12-21] MEDS: Enoxaparin Sodium 40 MG/0.4 ML SYRINGE SC SCH (09:40)
[2018-12-21] MEDS: Carvedilol 25 MG TAB PO SCH ×2 (09:40→21:21)
[2018-12-21] MEDS ORDERED: D5 1/2 NS w/20 mEq KCL 1,000 ML IV SCH (12:15)
[2018-12-21] MEDS: HYDROcodone/Acetaminophen 5/325 mg Tablet PO PRN ×2 (12:27→18:26)
--- NOTE | 2018-12-21 13:10 | PDOC.GSPN ---
Surgery Progress Note: Subj - Subjective Narrative: Patient feels better. He is still having some pain in his leg but not as much as yesterday. Physical therapy has been working with him. He is using a walker. His stump is wrapped and not swollen. OR dressings were left in place. Vital signs are good. Hematocrit has gone from 27 to 24 but he is not dizzy or lightheaded. Assessment and plan: Status post left BKA doing well. If he is accepted to rehabilitation he can be transferred at any time. I will remove his OR dressings on postop day 3. Surgery Progress Note: Obj - Vital signs Vital signs: Vital Signs - Most Recent Temp Pulse Resp BP Pulse Ox 97.8 F 86 18 107/65 94 L 12/21/18 11:47 12/21/18 11:47 12/21/18 11:47 12/21/18 11:47 12/21/18 11:47 Surgery Progress Note: Results - Labs Result Diagrams: 12/21/18 06:03 12/21/18 06:03 Lab results: Laboratory Results - last 24 hr 12/21/18 12/21/18 12/21/18 05:30 06:03 06:03 WBC 11.5 H RBC 2.67 L Hgb 7.9 L Hct 24.2 L MCV 90.7 MCH 29.6 MCHC 32.6 RDW 11.9 Plt Count 305 MPV 7.6 Neutrophils % 88.9 H Lymphocytes % 7.1 L Monocytes % 3.2 Eosinophils % 0.6 Basophils % 0.2 Neutrophils # 10.2 H Lymphocytes # 0.8 L Monocytes # 0.4 Eosinophils # 0.1 Basophils # 0.0 Sodium 127 L Potassium 4.5 Chloride 101 Carbon Dioxide 16 L Anion Gap 15 BUN 29 H Creatinine 2.27 H Estimated GFR (MDRD) 29 Glucose 305 H POC Glucose 290 H Calcium 7.9 12/21/18 12/21/18 12:06 12:26 WBC RBC Hgb Hct MCV MCH MCHC RDW Plt Count MPV Neutrophils % Lymphocytes % Monocytes % Eosinophils % Basophils % Neutrophils # Lymphocytes # Monocytes # Eosinophils # Basophils # Sodium Potassium Chloride Carbon Dioxide Anion Gap BUN Creatinine Estimated GFR (MDRD) Glucose POC Glucose 349 H 341 H Calcium
[2018-12-21] MEDS: Vancomycin HCl 1.25 GM in Sodium Chloride 0.9% 250 ML 250 ML IVPB SCH (22:51)
[2018-12-22] MEDS: Piperacillin/Tazobactam 3.375 GM in Sodium Chloride 0.9% 100 ML IVPB SCH ×2 (02:46→09:13)
[2018-12-22] MEDS: HYDROcodone/Acetaminophen 5/325 mg Tablet PO PRN ×3 (04:05→12:51)
--- NOTE | 2018-12-22 06:24 | PDOC.FM ---
- Subjective Subjective: NAEO. POD2 from left BKA. Patient reports he is doing well. States minimal pain in the left extremity. Brace and wrapping in place. Patient states he has been walking with the walker and already improving his strength. Has no concerns or complaints. - Objective MAR Reviewed: Yes Vital Signs & Weight: Vital Signs (12 hours) Temp Pulse Resp BP BP BP Pulse Ox 12/22/18 04:06 97.7 F 71 18 119/79 94 L 12/22/18 00:00 97.9 F 71 16 106/66 96 12/21/18 22:05 96 12/21/18 21:20 72 115/71 12/21/18 20:00 98.4 F 72 16 115/71 96 Weight Admit Weight 80.739 kg Weight 80.74 kg I&O: 12/20/18 12/21/18 12/22/18 06:59 06:59 06:59 Intake Total 2170 2225 1320 Output Total 2400 625 Balance -230 1600 1320 Result Diagrams: 12/22/18 10:47 12/22/18 10:47 Phys Exam - Physical Examination Constitutional: NAD HEENT: PERRLA, moist MMs, sclera anicteric Neck: supple, full ROM Respiratory: clear to auscultation bilateral Cardiovascular: RRR Gastrointestinal: soft, non-tender, no distention, positive bowel sounds left BKA, wrapping and brace in place Neurological: non-focal Psychiatric: normal affect, A&O x 3 Dx/Plan (1) CAD (coronary artery disease) Code(s): I25.10 - ATHSCL HEART DISEASE OF [place] CORONARY ARTERY W/O ANG PCTRS Status: Acute (2) CKD (chronic kidney disease), stage III Code(s): N18.3 - CHRONIC KIDNEY DISEASE, STAGE 3 (MODERATE) Status: Acute (3) Diabetes Code(s): E11.9 - TYPE 2 DIABETES MELLITUS WITHOUT COMPLICATIONS Status: Acute (4) Dry gangrene Code(s): I96 - GANGRENE, NOT ELSEWHERE CLASSIFIED Status: Acute (5) HTN (hypertension) Code(s): I10 - ESSENTIAL (PRIMARY) HYPERTENSION Status: Acute (6) Hyponatremia Code(s): E87.1 - HYPO-OSMOLALITY AND HYPONATREMIA Status: Acute (7) Osteomyelitis Code(s): M86.9 - OSTEOMYELITIS, UNSPECIFIED Status: Acute (8) YESSICA (acute kidney injury) Code(s): N17.9 - ACUTE KIDNEY FAILURE, UNSPECIFIED Status: Acute - Plan Plan: Sepsis 2/2 dry gangrene of L 1st toe s/p left BKA - tachycardia, febrile, increased WBC on admission. Failed outpatient augmentin. - in setting of uncontrolled DM - A1C 12.1 last month - ESR >130, CRP 9.3, lactic 0.9 - foot XR negative for osseous involvement. MRI showing no osteo. - continue vanc and zosyn (12/18) started in ED - s/p 1L in ED, continue NS maintenance IVF - General surgery: patient is POD 2 from left BKA. Pain control with tylenol, morphin and norco. Appreciate gen surg recommendations. Hyponatremia - Na+ 129 on admission -> 130 -> 127 - could be 2/2 hypovolemia. Urine studies unable to be collected as urine was not collected prior to fluids. - Will continue IVF - monitor on am bmp YESSICA on CKD3 - GFR 39, at baseline upon admission - monitor on bmp T2DM, uncontrolled - A1c 12.1 on 11/12 - Accuchecks, SSI - Will restart home meds CAD s/p CABG - continue home meds HTN - continue home meds Diet CC Dispo: s/p BKA, will continue to monitor, dc pending rehab placement Addendum - Attending - Attending Attestation Date/Time: 12/22/18 2293 I personally evaluated the patient at 0910 and discussed the management with Dr. Hurst I agree with the History, Examination, Assessment and Plan documented above with any addition or exceptions noted below. Recovering well from L BKA-awaiting inpatient rehab placement Acute on chronic kidney disease- cr continues to rise despite IVF and no neprotoxic meds (abx were renally dosed). Consult nephrology T2DM- restart home meds
[2018-12-22] MEDS: HumaLOG 300 UNITS/3 ML VIAL SC PRN ×3 (07:21→12:55)
[2018-12-22] MEDS ORDERED: [UNRECOGNIZED DRUG - OTHER] SQ SCH (09:00)
[2018-12-22] MEDS ORDERED: INSULIN GLARGINE HUM REC ANLOG SQ SCH (09:00)
[2018-12-22] MEDS ORDERED: Insulin Glargine 26 UNITS in Pre-Filled Syringe 1 EACH SC SCH (09:00)
[2018-12-22] MEDS: Fish Oil 1,000 MG CAP PO SCH (09:14)
[2018-12-22] MEDS: Aspirin Chewable 81 MG TAB PO SCH (09:14)
[2018-12-22] MEDS: Atorvastatin Calcium 40 MG TAB PO SCH (09:15)
[2018-12-22] MEDS: Carvedilol 25 MG TAB PO SCH ×2 (09:15→20:24)
[2018-12-22] MEDS: Enoxaparin Sodium 40 MG/0.4 ML SYRINGE SC SCH (09:15)
[2018-12-22] MEDS: Amlodipine 5 MG TAB PO SCH ×2 (09:15→20:25)
[2018-12-22 11:40] LABS: #Lymphocytes 1.2 thou/uL (1.20-3.40); #Monocytes 0.7 thou/uL (0.11-0.59); #Neutrophils 7.6 thou/uL (1.40-6.50); %Basophils 0.2 % (0.0-1.0); %Eosinophils 0.4 % (0.0-10.0); %Lymphocytes 12.8 % (21.0-51.0); %Monocytes 7.7 % (0.0-10.0); %Neutrophils 78.9 % (42.0-75.0); Hemoglobin 6.5 g/dL (14.0-18.0); Mean Corpuscular HGB CONC 30.3 g/dL (32.0-36.0); Mean Corpuscular Hemoglobin 27.9 pg (27.0-31.0); Mean Corpuscular Volume 92.1 fL (78.0-98.0); Mean Platelet Volume 7.9 fL (7.4-10.4); Platelet Count 281 thou/uL (130-400); RBC Distribution Width 11.9 % (11.5-14.5); Red Blood Cell (RBC) Count 2.32 mill/uL (4.70-6.10); White Blood Cell (WBC) Count 9.6 thou/uL (4.8-10.8)
[2018-12-22 11:55] LABS: Anion Gap 15 mmol/L (10-20); BUN (Urea Nitrogen) 31 mg/dL (8.4-25.7); Calc. Creatinine Clearance 34 mL/min (70-130); Carbon Dioxide 18 mmol/L (23-31); Chloride 101 mmol/L (98-107); Estimated GFR-MDRD 25; Glucose 212 mg/dL (80-115); Sodium 130 mmol/L (136-145)
[2018-12-22] MEDS: Sodium Chloride 0.9% 1,000 ML IV SCH ×3 (12:51→23:34)
[2018-12-22 15:32] LABS: Vancomycin, Random 35.5 ug/mL (See Comment)
--- NOTE | 2018-12-22 16:57 | ULT ---
RENAL SONOGRAM: History: Acute kidney insufficiency. FINDINGS: Each kidney is 11.5 cm in length and has a normal sonographic appearance. No evidence of mass, stone, or hydronephrosis. Urinary bladder has a normal appearance. IMPRESSION: Normal renal sonogram. POS: CHARLEY
--- NOTE | 2018-12-22 22:24 | PDOC.GSPN ---
Surgery Progress Note: Subj - Subjective Narrative: Patient was feeling nauseated and weak earlier but is feeling better now. He was being transfused when I saw him since his hemoglobin has gone down to 6.5. His BUN and creatinine continued to slowly rise and he is on maintenance fluids as well as a diet. Renal ultrasound was normal. His stump is soft without evidence of hematoma. Assessment/plan: Worsening renal insufficiency likely due to pre-existing anemia with added blood loss from surgery. His hemoglobin went down after IV hydration with fluids and he is appropriately being transfused. Continue to monitor renal function. Doing well from a surgical standpoint without any evidence of ongoing bleeding. Surgery Progress Note: Obj - Vital signs Vital signs: Vital Signs - Most Recent Temp Pulse Resp BP Pulse Ox 98.1 F 67 18 123/75 98 12/22/18 17:57 12/22/18 20:25 12/22/18 17:57 12/22/18 17:57 12/22/18 17:57 Surgery Progress Note: Results - Labs Result Diagrams: 12/22/18 10:47 12/22/18 10:47 Lab results: Laboratory Results - last 24 hr 12/22/18 12/22/18 12/22/18 10:47 10:47 10:47 WBC 9.6 RBC 2.32 L Hgb 6.5 L Hct 21.4 L MCV 92.1 MCH 27.9 MCHC 30.3 L RDW 11.9 Plt Count 281 MPV 7.9 Neutrophils % 78.9 H Lymphocytes % 12.8 L Monocytes % 7.7 Eosinophils % 0.4 Basophils % 0.2 Neutrophils # 7.6 H Lymphocytes # 1.2 Monocytes # 0.7 H Eosinophils # 0.0 Basophils # 0.0 Sodium 130 L Potassium 4.0 Chloride 101 Carbon Dioxide 18 L Anion Gap 15 BUN 31 H Creatinine 2.61 H Estimated GFR (MDRD) 25 Glucose 212 H POC Glucose Calcium 7.0 L Random Vancomycin 35.5 Blood Type Antibody Screen Crossmatch 12/22/18 12/22/18 12/22/18 11:24 15:29 15:55 WBC RBC Hgb Hct MCV MCH MCHC RDW Plt Count MPV Neutrophils % Lymphocytes % Monocytes % Eosinophils % Basophils % Neutrophils # Lymphocytes # Monocytes # Eosinophils # Basophils # Sodium Potassium Chloride Carbon Dioxide Anion Gap BUN Creatinine Estimated GFR (MDRD) Glucose POC Glucose 236 H 152 H Calcium Random Vancomycin Blood Type O POSITIVE Antibody Screen NEGATIVE Crossmatch See Detail
[2018-12-22 22:49] LABS: Hemoglobin 7.2 g/dL (14.0-18.0)
[2018-12-22] MEDS: Acetaminophen 325 MG TAB PO PRN (23:32)
--- NOTE | 2018-12-23 05:03 | PDOC.FM ---
- Subjective Subjective: NAEO. Patient reports feeling ok this AM. States he feels more fatigued than usual but does feel better than he did yesterday. Endorses some SOB and abdominal tightness as well. Says he does not think he has had a BM since he's been here. Denies any fever/chills, N/V or chest pain. - Objective MAR Reviewed: Yes Vital Signs & Weight: Vital Signs (12 hours) Temp Pulse Pulse Resp BP BP BP 12/23/18 00:00 97.7 F 66 20 125/72 12/22/18 20:25 67 12/22/18 20:00 97.4 F L 78 16 107/67 12/22/18 17:57 98.1 F 63 18 123/75 12/22/18 17:35 98.2 F 64 16 104/64 Pulse Ox 12/23/18 00:00 94 L 12/22/18 20:25 12/22/18 20:00 98 12/22/18 17:57 98 12/22/18 17:35 95 Weight Admit Weight 80.739 kg Weight 80.74 kg I&O: 12/21/18 12/22/18 12/23/18 06:59 06:59 06:59 Intake Total 2225 1320 3710 Output Total 625 500 Balance 1600 1320 3210 Result Diagrams: 12/23/18 06:43 12/23/18 06:43 Radiology Reviewed by me: Yes (normal renal U/S) Phys Exam - Physical Examination Constitutional: NAD HEENT: moist MMs, sclera anicteric Neck: supple, full ROM Respiratory: no wheezing, no rales, no rhonchi, clear to auscultation bilateral Cardiovascular: RRR, no significant murmur Gastrointestinal: positive bowel sounds LLE bandage and brace in place Neurological: non-focal, moves all 4 limbs Psychiatric: normal affect, A&O x 3 Skin: no rash, normal turgor Dx/Plan (1) YESSICA (acute kidney injury) Code(s): N17.9 - ACUTE KIDNEY FAILURE, UNSPECIFIED Status: Acute (2) CAD (coronary artery disease) Code(s): I25.10 - ATHSCL HEART DISEASE OF [place] CORONARY ARTERY W/O ANG PCTRS Status: Acute (3) CKD (chronic kidney disease), stage III Code(s): N18.3 - CHRONIC KIDNEY DISEASE, STAGE 3 (MODERATE) Status: Acute (4) Diabetes Code(s): E11.9 - TYPE 2 DIABETES MELLITUS WITHOUT COMPLICATIONS Status: Acute (5) Dry gangrene Code(s): I96 - GANGRENE, NOT ELSEWHERE CLASSIFIED Status: Acute (6) HTN (hypertension) Code(s): I10 - ESSENTIAL (PRIMARY) HYPERTENSION Status: Acute (7) Hyponatremia Code(s): E87.1 - HYPO-OSMOLALITY AND HYPONATREMIA Status: Acute (8) Osteomyelitis Code(s): M86.9 - OSTEOMYELITIS, UNSPECIFIED Status: Acute (9) S/P CABG (coronary artery bypass graft) Code(s): Z95.1 - PRESENCE OF AORTOCORONARY BYPASS GRAFT Status: Acute (10) Sepsis Code(s): A41.9 - SEPSIS, UNSPECIFIED ORGANISM Status: Acute - Plan Plan: 63YOM w/ a PMH of poorly controlled DMII who presented to the ED & was found to be septic 2/2 left foot dry gangrene. Sepsis 2/2 dry gangrene of L 1st toe s/p left BKA - tachycardic & febrile w/ leukocytosis on admission. Failed outpatient augmentin. Foot XR & MRI negative for osteo. - However, now resolved as patient is POD 3 s/p left BKA. Will continue pain control with tylenol & norco. Will consider de-escalating morphine since patient did not require it at all yesterday. Appreciate gen surg recommendations. - Patient will most likely require inpatient rehab vs. SNF for recovery. Rehab screen placed & CM consulted to assist w/ d/c planning. Hyponatremia - Na+ 129 on admission -> 130 -> 127--> 133 - could be 2/2 hypovolemia. Urine studies unable to be collected as urine was not collected prior to fluids. - Will continue IVFs w/ NS @ 120mL/hr - Will continue to monitor with am bmp Anemia - Patient likely has chronic normocytic anemia 2/2 CKD as Hgb on presentation was 9.9. - However, Hgb dropped to 6.5 yesterday but ronny to 7.2 s/p 1 unit of PRBCs. Is up to 8.1 this AM. - No active bleeding from surgical site per gen surg. - Will continue to monitor closely and transfuse PRN. - Will consider initiating ferrous sulfate as well. YESSICA on CKD3 - Cr slightly bumped from presentation and baseline yesterday. Repeat Cr down to 2.32 this AM w/ a slightly improved eGFR of 29. - Will follow-up on nephrology consult from yesterday as renal U/S was WNLs. - Will continue IVFs w/ NS @ 120mL/hr. T2DM, uncontrolled - A1c 12.1 on 11/12 - Accuchecks, SSI - Will follow-up on home meds but in the meantime will increase QD lantus to 31 units QD as patient still required 10 units of SSI with 26 units yesterday AM. CAD s/p CABG - Aware, will continue home meds HTN - Will continue home meds IVFs: NS @ 120mL/hr Abx: none VTE PPx: lovenox GI PPx: none Diet: CC Dispo: s/p BKA, will continue to monitor, dc pending rehab placement - Addendum - Attending - Attending Attestation Date/Time: 12/23/18 3017 I personally evaluated the patient and discussed the management with Dr. Escobar I agree with the History, Examination, Assessment and Plan documented above with any addition or exceptions noted below- Patient without complaints. Particpiating with PT. Pain controlled. Afebrile VSS. A/P: 1) PVD s/p BKA- continue PT. 2) DM- BG well controlled with current dose of meds. 3) HTN- continue home meds. 4) D/C planning- referred for inpateint rehab; awaiting eval.
[2018-12-23] MEDS: Acetaminophen 325 MG TAB PO PRN ×2 (06:16→15:39)
[2018-12-23 07:55] LABS: Anion Gap 15 mmol/L (10-20); BUN (Urea Nitrogen) 33 mg/dL (8.4-25.7); Calc. Creatinine Clearance 38 mL/min (70-130); Calcium 7.4 mg/dL (7.8-10.44); Carbon Dioxide 16 mmol/L (23-31); Chloride 106 mmol/L (98-107); Estimated GFR-MDRD 29; Glucose 67 mg/dL (80-115); Potassium 3.8 mmol/L (3.5-5.1); Sodium 133 mmol/L (136-145)
[2018-12-23 07:56] LABS: #Eosinphils 0.1 thou/uL (0.0-0.7); #Lymphocytes 1.5 thou/uL (1.20-3.40); #Monocytes 0.8 thou/uL (0.11-0.59); #Neutrophils 5.9 thou/uL (1.40-6.50); %Basophils 0.2 % (0.0-1.0); %Eosinophils 1.5 % (0.0-10.0); %Lymphocytes 18.4 % (21.0-51.0); %Monocytes 9.3 % (0.0-10.0); %Neutrophils 70.5 % (42.0-75.0); Hemoglobin 8.1 g/dL (14.0-18.0); Mean Corpuscular HGB CONC 32.4 g/dL (32.0-36.0); Mean Corpuscular Volume 92.6 fL (78.0-98.0); Mean Platelet Volume 8.1 fL (7.4-10.4); Platelet Count 290 thou/uL (130-400); RBC Distribution Width 12.2 % (11.5-14.5); Red Blood Cell (RBC) Count 2.69 mill/uL (4.70-6.10); White Blood Cell (WBC) Count 8.3 thou/uL (4.8-10.8)
[2018-12-23] MEDS: Sodium Chloride 0.9% 1,000 ML IV SCH ×3 (09:12→21:40)
[2018-12-23] MEDS: Enoxaparin Sodium 40 MG/0.4 ML SYRINGE SC SCH (09:13)
[2018-12-23] MEDS: INSULIN GLARGINE SC SCH (09:14)
[2018-12-23] MEDS: PRE FILLED SC SCH (09:14)
[2018-12-23] MEDS: Fish Oil 1,000 MG CAP PO SCH (09:14)
[2018-12-23] MEDS: Amlodipine 5 MG TAB PO SCH ×2 (09:14→21:40)
[2018-12-23] MEDS: Atorvastatin Calcium 40 MG TAB PO SCH (09:14)
[2018-12-23] MEDS: Senokot S 8.6-50 MG TAB PO SCH ×2 (09:15→21:40)
[2018-12-23] MEDS: Aspirin Chewable 81 MG TAB PO SCH (09:15)
[2018-12-23] MEDS: Carvedilol 25 MG TAB PO SCH ×2 (09:15→21:40)
--- NOTE | 2018-12-23 10:12 | CON ---
DATE OF CONSULTATION: 12/22/2018 NEPHROLOGY CONSULTATION NOTE: REASON FOR CONSULTATION: Acute kidney injury. REASON FOR ADMISSION: Right great toe infection. HISTORY OF PRESENT ILLNESS: This is a 63-year-old male with history of type 2 diabetes, hypertension, coronary artery disease, hyperlipidemia, and CKD, who came to the hospital with nonhealing great toe infection and had surgery amputation 2 days back and was found to have elevated creatinine, the patient's creatinine on admission was 1.8 and this morning was 2.6 despite on IV hydration, and Nephrology was consulted. The patient is also on vancomycin and Zosyn. Blood culture one set showed MRSA. No fever or chills. No nausea, vomiting eating well and making urine. PAST MEDICAL HISTORY: Positive for type 2 diabetes, coronary artery disease, hypertension, hyperlipidemia, and CKD. PAST SURGICAL HISTORY: CABG and angioplasty. HOME MEDICATIONS: 1. . 2. Coreg. 3. Amlodipine. 4. Fish oil. 5. Lipitor. 6. Aspirin. ALLERGIES: NO KNOWN MEDICATION ALLERGIES. SOCIAL HISTORY: No smoking, alcohol, or illicit drug use reported. FAMILY HISTORY: No history of any kidney disease. REVIEW OF SYSTEMS: CONSTITUTIONAL: Negative for weight loss or gain, ability to conduct usual activities. SKIN: Negative for rash, itching. EYES: Negative for double vision, pain. ENT/MOUTH: Negative for nose bleeding, neck stiffness, pain, tenderness. CARDIOVASCULAR: Negative for palpitations, dyspnea on exertion, orthopnea. RESPIRATORY: Negative for shortness of breath, wheezing, cough, hemoptysis, fever or night sweats. GASTROINTESTINAL: Negative for poor appetite, abdominal pain, heartburn, nausea, vomiting, constipation, or diarrhea. GENITOURINARY: Negative for urgency, frequency, dysuria, nocturia. MUSCULOSKELETAL: Negative for pain, swelling. NEUROLOGIC/PSYCHIATRIC: Negative for anxiety, depression. ALLERGY/IMMUNOLOGIC: Negative for skin rash, bleeding tendency. PHYSICAL EXAMINATION: GENERAL: Reveals a well-developed male, no apparent distress. VITAL SIGNS: Temperature 98.2, pulse 68, respiratory rate 2, blood pressure 102/61.. HEENT: Atraumatic, normocephalic. Oral mucosa is moist NECK: Supple. CARDIOVASCULAR: S1, S2 heard. Rate and rhythm regular. RESPIRATORY: Clear to auscultation. GI: Abdomen is soft. MUSCULOSKELETAL: 1+ edema. DERMATOLOGIC: No skin rash. NEUROLOGIC: Alert and awake. PSYCHIATRIC: Mood and affect normal. LABORATORY DATA: Hemoglobin is 6.5, WBC is 9.6. Potassium 4.0, BUN 31, and creatinine 2.6. ASSESSMENT AND PLAN: 1. Acute kidney injury. Agree with IV hydration. We will recommend vancomycin trough level and recommend to de-escalate the antibiotics and avoid nephrotoxins. 2. Anemia. Rule out any bleeding. 3. Edema. Controlled. 4. Hyponatremia. 5. Metabolic acidosis. We will have IV fluids. 6. Uncontrolled type 2 diabetes. 7. Prognosis, guarded. We will check vancomycin level and recommended to de-escalate antibiotics. Avoid nephrotoxins. Renally dose all medications. Thank you for the consult. We will follow. Job ID: [id number]
[2018-12-23 13:35] LABS: Iron 25 ug/dL (65-175); Iron Binding Capacity, Total 159 mcg/dL (261-462)
--- NOTE | 2018-12-23 14:22 | PRG ---
DATE OF SERVICE: 12/23/2018 SUBJECTIVE: A 63-year-old gentleman, being seen for acute kidney injury. The patient denied any nausea, vomiting, or chest pain. OBJECTIVE: GENERAL: The patient is awake and alert. VITAL SIGNS: Afebrile, pulse 62, breathing 16, blood pressure 130/65. GENERAL APPEARANCE AND MENTAL STATUS: Fair. HEAD/NECK: Normocephalic. Atraumatic. EYES: EOMI. No deformity. EARS: Clear. No ulcers. NOSE: Intact. No lesions. MOUTH: Clear. No discharge. THROAT: Clear. No exudate. LUNGS: Clear. No crackles. CARDIAC: S1, S2. No rub. ABDOMEN: Benign. Bowel sounds positive. GENITALIA/RECTUM: Whyte absent. BACK/EXTREMITIES: Edema 0+. NEUROLOGICAL: Alert and motor intact. SKIN: LYMPHATICS: LABORATORY DATA: Hemoglobin 8.1. Creatinine 2.3. ASSESSMENT AND PLAN: 1. Acute kidney injury, improved. 2. Hypertension, stable. 3. Anemia, stable. 4. Medications based on GFR appropriate. No indication for dialysis. Job ID: [id number]
[2018-12-23] MEDS ORDERED: Bacitracin Zinc 1 Packet TOP PRN (14:57)
[2018-12-23] MEDS: Polyethylene Glycol 3350 17 GM Packet PO SCH (17:36)
[2018-12-23] MEDS: Ferrous Sulfate 325 MG TAB PO SCH (17:52)
--- NOTE | 2018-12-23 21:13 | PDOC.GSPN ---
Surgery Progress Note: Subj - Subjective Narrative: Patient feels good. His stump was examined and the incision is clean and dry. The stump looks healthy and viable. His renal function is still marginal. No surgical issues. He can be fitted with a stump microcomputer technician and continue with physical therapy. Ready for discharge from a surgical standpoint whenever his medical issues have resolved. Surgery Progress Note: Obj - Vital signs Vital signs: Vital Signs - Most Recent Temp Pulse Resp BP Pulse Ox 97.8 F 65 16 135/74 93 L 12/23/18 20:00 12/23/18 20:00 12/23/18 20:00 12/23/18 20:00 12/23/18 20:00 Surgery Progress Note: Results - Labs Result Diagrams: 12/23/18 06:43 12/23/18 06:43 Lab results: Laboratory Results - last 24 hr 12/22/18 12/22/18 12/23/18 00:00 06:50 11:25 POC Glucose 291 H 201 H 112 H Iron TIBC % Saturation Ferritin Vitamin B12 12/23/18 12/23/18 12/23/18 13:10 13:10 13:10 POC Glucose Iron 25 L TIBC 159 L % Saturation 16 L Ferritin 844.49 H Vitamin B12 368 12/23/18 16:00 POC Glucose 78 Iron TIBC % Saturation Ferritin Vitamin B12
[2018-12-24] MEDS: Sodium Chloride 0.9% 1,000 ML IV SCH (05:48)
[2018-12-24] MEDS: Acetaminophen 325 MG TAB PO PRN ×2 (05:48→17:40)
[2018-12-24 05:55] LABS: #Eosinphils 0.2 thou/uL (0.0-0.7); #Lymphocytes 1.1 thou/uL (1.20-3.40); #Monocytes 0.6 thou/uL (0.11-0.59); #Neutrophils 6.1 thou/uL (1.40-6.50); %Eosinophils 2.1 % (0.0-10.0); %Lymphocytes 13.6 % (21.0-51.0); %Monocytes 7.9 % (0.0-10.0); %Neutrophils 76.4 % (42.0-75.0); Hemoglobin 7.3 g/dL (14.0-18.0); Mean Corpuscular HGB CONC 32.8 g/dL (32.0-36.0); Mean Corpuscular Hemoglobin 30.2 pg (27.0-31.0); Mean Corpuscular Volume 92.3 fL (78.0-98.0); Mean Platelet Volume 7.7 fL (7.4-10.4); Platelet Count 299 thou/uL (130-400); RBC Distribution Width 12.3 % (11.5-14.5); Red Blood Cell (RBC) Count 2.41 mill/uL (4.70-6.10)
[2018-12-24 06:12] LABS: Anion Gap 11 mmol/L (10-20); BUN (Urea Nitrogen) 27 mg/dL (8.4-25.7); Calc. Creatinine Clearance 49 mL/min (70-130); Calcium 7.6 mg/dL (7.8-10.44); Carbon Dioxide 20 mmol/L (23-31); Chloride 109 mmol/L (98-107); Estimated GFR-MDRD 39; Glucose 75 mg/dL (80-115); Potassium 3.7 mmol/L (3.5-5.1); Sodium 136 mmol/L (136-145)
--- NOTE | 2018-12-24 06:28 | PDOC.FM ---
- Subjective Subjective: NAEO. Patient says his pain is well-controlled. He denies any N/V, fever/chills , constipation, or abdominal pain. He does endorse some SOB even with sitting but denies any cough. - Objective MAR Reviewed: Yes Vital Signs & Weight: Vital Signs (12 hours) Temp Pulse Resp BP Pulse Ox 12/24/18 04:00 98.6 F 70 16 142/79 H 93 L 12/24/18 00:00 97.8 F 68 18 134/79 95 12/23/18 21:40 93 L 12/23/18 20:00 97.8 F 65 16 135/74 93 L Weight Admit Weight 80.739 kg Weight 80.74 kg I&O: 12/22/18 12/23/18 12/24/18 06:59 06:59 06:59 Intake Total 1320 5150 1900 Output Total 1200 1250 Balance 1320 3950 650 Result Diagrams: 12/24/18 05:25 12/24/18 05:25 Phys Exam - Physical Examination Constitutional: NAD HEENT: moist MMs, sclera anicteric Neck: supple, full ROM Respiratory: no wheezing, no rales, no rhonchi, clear to auscultation bilateral decreased breath sounds in B/L lung bases Cardiovascular: RRR, no significant murmur Gastrointestinal: non-tender, positive bowel sounds Neurological: non-focal, moves all 4 limbs Psychiatric: normal affect, A&O x 3 Skin: no rash, normal turgor Dx/Plan (1) YESSICA (acute kidney injury) Code(s): N17.9 - ACUTE KIDNEY FAILURE, UNSPECIFIED Status: Acute (2) CAD (coronary artery disease) Code(s): I25.10 - ATHSCL HEART DISEASE OF [place] CORONARY ARTERY W/O ANG PCTRS Status: Acute (3) CKD (chronic kidney disease), stage III Code(s): N18.3 - CHRONIC KIDNEY DISEASE, STAGE 3 (MODERATE) Status: Acute (4) Diabetes Code(s): E11.9 - TYPE 2 DIABETES MELLITUS WITHOUT COMPLICATIONS Status: Acute (5) Dry gangrene Code(s): I96 - GANGRENE, NOT ELSEWHERE CLASSIFIED Status: Acute (6) HTN (hypertension) Code(s): I10 - ESSENTIAL (PRIMARY) HYPERTENSION Status: Acute (7) Hyponatremia Code(s): E87.1 - HYPO-OSMOLALITY AND HYPONATREMIA Status: Acute (8) Osteomyelitis Code(s): M86.9 - OSTEOMYELITIS, UNSPECIFIED Status: Acute (9) S/P CABG (coronary artery bypass graft) Code(s): Z95.1 - PRESENCE OF AORTOCORONARY BYPASS GRAFT Status: Acute (10) Sepsis Code(s): A41.9 - SEPSIS, UNSPECIFIED ORGANISM Status: Acute - Plan Plan: 63YOM w/ a PMH of poorly controlled DMII who presented to the ED & was found to be septic 2/2 left foot dry gangrene. Sepsis 2/2 dry gangrene of L 1st toe s/p left BKA - tachycardic & febrile w/ leukocytosis on admission. Failed outpatient augmentin. Foot XR & MRI negative for osteo. - Patient is POD #4 s/p left BKA. Will continue pain control with tylenol & tramadol PRN. - Referral to inpatient rehab placed yesterday. Patient cleared for d/c from surgical standpoint, just waiting to acceptance to rehab. Hyponatremia - Resolved as Na up to 136 this AM. - Will continue to monitor with am bmps. Anemia - Patient likely has chronic normocytic anemia 2/2 CKD as Hgb on presentation was 9.9. Iron studies significant for iron deficiency as well. - Patient is s/p 1 unit of PRBCs since admission. - No active bleeding from surgical site per gen surg. - Will continue PO ferrous sulfate. - Hgb down slightly from 8 yesterday to 7.3 this AM. - Will continue to monitor closely and transfuse PRN. YESSICA on CKD3 - Cr down to 1.80 this AM w/ an eGFR of 39 this AM which is his baseline. - Will de-escalate IVFs and continue to monitor with QD BMPs. T2DM, uncontrolled - A1c 12.1 on 11/12 - Accuchecks, SSI - Will continue to monitor BG closely & continue QD lantus at 31 units. CAD s/p CABG - Aware, will continue home meds. HTN - Will continue home meds. IVFs: SL Abx: none VTE PPx: lovenox GI PPx: none Diet: CC, HH Dispo: POD #4 s/p BKA, will continue to monitor, dc pending rehab placement Addendum - Attending - Attending Attestation Date/Time: 12/24/18 5945 I personally evaluated the patient and discussed the management with Dr. Escobar I agree with the History, Examination, Assessment and Plan documented above with any addition or exceptions noted below- Patient without compaints. Working with PT. Afebrile VSS. A/P: 1) PVD s/p BKA- continue current care. Awaiting rehab placement. 2) DM- Bg controlled on current regimen. 3) HTn- stable. 40 YESSICA - resolved; Cr back to baseline.
[2018-12-24] MEDS: Polyethylene Glycol 3350 17 GM Packet PO SCH (08:48)
[2018-12-24] MEDS: Atorvastatin Calcium 40 MG TAB PO SCH (08:48)
[2018-12-24] MEDS: Enoxaparin Sodium 40 MG/0.4 ML SYRINGE SC SCH (08:48)
[2018-12-24] MEDS: Ferrous Sulfate 325 MG TAB PO SCH ×2 (08:49→17:36)
[2018-12-24] MEDS: Carvedilol 25 MG TAB PO SCH ×2 (08:49→21:22)
[2018-12-24] MEDS: Fish Oil 1,000 MG CAP PO SCH (08:49)
[2018-12-24] MEDS: Aspirin Chewable 81 MG TAB PO SCH (08:49)
[2018-12-24] MEDS: INSULIN GLARGINE SC SCH (08:50)
[2018-12-24] MEDS: PRE FILLED SC SCH (08:50)
[2018-12-24] MEDS: Amlodipine 5 MG TAB PO SCH ×2 (08:50→21:21)
[2018-12-24] MEDS: Senokot S 8.6-50 MG TAB PO SCH ×2 (08:51→21:21)
--- NOTE | 2018-12-24 11:36 | PRG ---
DATE OF SERVICE: 12/24/2018 SUBJECTIVE: A 63-year-old gentleman, being seen for acute kidney injury. The patient denied any nausea, vomiting, or chest pain. OBJECTIVE: GENERAL: The patient is awake and alert. VITAL SIGNS: Afebrile, pulse 65, breathing 16, and blood pressure 149/70. GENERAL APPEARANCE AND MENTAL STATUS: Fair. HEAD/NECK: Normocephalic. Atraumatic. EYES: EOMI. No deformity. EARS: Clear. No ulcers. NOSE: Intact. No lesions. MOUTH: Clear. No discharge. THROAT: Clear. No exudate. LUNGS: Clear. No crackles. CARDIAC: S1, S2. No rub. ABDOMEN: Benign. Bowel sounds positive. GENITALIA/RECTUM: Whyte absent. BACK/EXTREMITIES: Edema 0+. NEUROLOGICAL: Alert and motor intact. SKIN: LYMPHATICS: LABORATORY DATA: Labs show hemoglobin 7.3. Creatinine is 1.8. ASSESSMENT AND PLAN: Acute kidney injury, improved. Hypertension, stable. Anemia, we would recommend transfusion. Medication based on GFR, appropriate. No indication for dialysis. Job ID: [id number]
--- NOTE | 2018-12-24 15:32 | PDOC.GSPN ---
Surgery Progress Note: Subj - Subjective Narrative: Stump looks good. The stump supervisor canvas products is in place. I removed the knee immobilizer to allow him to do active range of motion. Creatinine continues to slowly decline. From a surgical standpoint he is ready for discharge to rehabilitation. Surgery Progress Note: Obj - Vital signs Vital signs: Vital Signs - Most Recent Temp Pulse Resp BP Pulse Ox 97.8 F 66 18 149/73 H 95 12/24/18 10:49 12/24/18 10:49 12/24/18 10:49 12/24/18 10:49 12/24/18 10:49 Surgery Progress Note: Results - Labs Result Diagrams: 12/24/18 05:25 12/24/18 05:25 Lab results: Laboratory Results - last 24 hr 12/24/18 12/24/18 12/24/18 05:25 05:25 05:45 WBC 8.0 RBC 2.41 L Hgb 7.3 L Hct 22.2 L MCV 92.3 MCH 30.2 MCHC 32.8 RDW 12.3 Plt Count 299 MPV 7.7 Neutrophils % 76.4 H Lymphocytes % 13.6 L Monocytes % 7.9 Eosinophils % 2.1 Basophils % 0.0 Neutrophils # 6.1 Lymphocytes # 1.1 L Monocytes # 0.6 H Eosinophils # 0.2 Basophils # 0.0 Sodium 136 Potassium 3.7 Chloride 109 H Carbon Dioxide 20 L Anion Gap 11 BUN 27 H Creatinine 1.80 H Estimated GFR (MDRD) 39 Glucose 75 L POC Glucose 77 Calcium 7.6 L 12/24/18 10:48 WBC RBC Hgb Hct MCV MCH MCHC RDW Plt Count MPV Neutrophils % Lymphocytes % Monocytes % Eosinophils % Basophils % Neutrophils # Lymphocytes # Monocytes # Eosinophils # Basophils # Sodium Potassium Chloride Carbon Dioxide Anion Gap BUN Creatinine Estimated GFR (MDRD) Glucose POC Glucose 106 Calcium
[2018-12-24 17:12] LABS: Folate,Hemolysate 277.2 ng/mL (Not Estab.); Hematocrit 19.9 % (37.5-51.0); RBC Folate Test Component 1393 ng/mL (>498)
--- NOTE | 2018-12-25 06:16 | PDOC.FM ---
- Subjective Subjective: NAEO. Patient states he feels well this AM. He endorses having regular BMs now. Denies any chest pain, abdominal pain, or hematochezia. Reports a productive cough and some upper airway wheezing as well. Says his SOB has improved though. But does report possible melena. Says he has a h/o hemorrhoids many years ago and his last colonoscopy was in 2016 and was normal. - Objective MAR Reviewed: Yes Vital Signs & Weight: Vital Signs (12 hours) Temp Pulse Resp BP BP BP Pulse Ox 12/25/18 03:39 97.8 F 64 16 149/78 H 95 12/25/18 00:15 98.2 F 97 18 154/73 H 97 12/24/18 21:21 69 134/69 12/24/18 20:00 98.5 F 69 18 134/69 94 L Weight Admit Weight 80.739 kg Weight 80.74 kg I&O: 12/23/18 12/24/18 12/25/18 06:59 06:59 06:59 Intake Total 5150 3250 Output Total 1200 3450 800 Balance 3950 -200 -800 Result Diagrams: 12/26/18 05:44 12/26/18 05:44 Phys Exam - Physical Examination Constitutional: NAD HEENT: moist MMs, sclera anicteric Neck: supple, full ROM Respiratory: no rales, no rhonchi, wheezing present (end expiratory wheezing primarily in upper airway but some appreciated in lower lobes as well), clear to auscultation bilateral Cardiovascular: RRR, no significant murmur Gastrointestinal: soft, non-tender, positive bowel sounds unremarkable rectal exam Neurological: non-focal, moves all 4 limbs Psychiatric: normal affect, A&O x 3 Skin: no rash, normal turgor Dx/Plan (1) YESSICA (acute kidney injury) Code(s): N17.9 - ACUTE KIDNEY FAILURE, UNSPECIFIED Status: Resolved (2) CAD (coronary artery disease) Code(s): I25.10 - ATHSCL HEART DISEASE OF [place] CORONARY ARTERY W/O ANG PCTRS Status: Acute (3) CKD (chronic kidney disease), stage III Code(s): N18.3 - CHRONIC KIDNEY DISEASE, STAGE 3 (MODERATE) Status: Acute (4) Diabetes Code(s): E11.9 - TYPE 2 DIABETES MELLITUS WITHOUT COMPLICATIONS Status: Acute Qualifiers: Diabetes mellitus type: type 2 Diabetes mellitus complication status: with kidney complications Diabetes mellitus complication detail: with chronic kidney disease Chronic kidney disease stage: stage 3 (moderate) (5) Dry gangrene Code(s): I96 - GANGRENE, NOT ELSEWHERE CLASSIFIED Status: Resolved (6) HTN (hypertension) Code(s): I10 - ESSENTIAL (PRIMARY) HYPERTENSION Status: Acute (7) Hyponatremia Code(s): E87.1 - HYPO-OSMOLALITY AND HYPONATREMIA Status: Acute (8) Osteomyelitis Code(s): M86.9 - OSTEOMYELITIS, UNSPECIFIED Status: Ruled-out (9) S/P CABG (coronary artery bypass graft) Code(s): Z95.1 - PRESENCE OF AORTOCORONARY BYPASS GRAFT Status: Acute (10) Sepsis Code(s): A41.9 - SEPSIS, UNSPECIFIED ORGANISM Status: Resolved - Plan Plan: 63YOM w/ a PMH of poorly controlled DMII who presented to the ED & was found to be septic 2/2 left foot dry gangrene. Sepsis 2/2 dry gangrene of L 1st toe s/p left BKA - tachycardic & febrile w/ leukocytosis on admission. Failed outpatient augmentin. Foot XR & MRI negative for osteo. - Patient is POD #5 s/p left BKA. Will continue pain control with tylenol & tramadol PRN. - Referral to inpatient rehab placed 2 days ago. Patient cleared for d/c from surgical standpoint, just waiting on acceptance to rehab. Anemia - Patient likely has chronic normocytic anemia 2/2 CKD as Hgb on presentation was 9.9. Iron studies significant for iron deficiency as well. - Patient is s/p 1 unit of PRBCs since admission. Hgb up to 8.5 this AM. - No active bleeding from surgical site per gen surg; however, FOBT from yesterday was + which could explain periodic dips in Hgb. Rectal exam unremarkable. Will continue PO ferrous sulfate & instruct patient to follow-up at our clinic for a repeat scope to evaluate for source of bleeding since he is HD stable. Will start on GI PPx as well. - Will continue to monitor closely and transfuse PRN. YESSICA on CKD3 - Resolved as Cr down to 1.51 this AM w/ an eGFR of 47 this AM which is his baseline. - Will continue to monitor with QD BMPs. T2DM, uncontrolled - A1c 12.1 on 11/12 - Accuchecks, SSI - Will continue to monitor BG closely & continue QD lantus at 31 units. Hyponatremia - Na down to 135 this AM. Patient asymptomatic. - Will continue to monitor with am bmps. CAD s/p CABG - Aware, will continue home meds. HTN - Tight control has not been achieved over last several days. Will continue home meds & consider adding a third agent to achieve SBP goal of <130. IVFs: SL Abx: none VTE PPx: lovenox GI PPx: protonix Diet: CC, HH Dispo: POD #5 s/p BKA, will continue to monitor, dc pending rehab placement Addendum - Attending - Attending Attestation Date/Time: 12/26/18 1685 I personally evaluated the patient and discussed the management with Dr. Escobar on 12/25/2018 I agree with the History, Examination, Assessment and Plan documented above with any addition or exceptions noted below- Patient without complaints. Afebrile VSS. A/P: 1) PVD s/p BKA- healing well. Continue PT. 2) DM- BG well controlled; continue current meds. 3) D/c planning- awaiting rehab placement.
[2018-12-25 06:22] LABS: #Eosinphils 0.2 thou/uL (0.0-0.7); #Lymphocytes 1.1 thou/uL (1.20-3.40); #Monocytes 0.6 thou/uL (0.11-0.59); #Neutrophils 6.5 thou/uL (1.40-6.50); %Basophils 0.2 % (0.0-1.0); %Eosinophils 2.3 % (0.0-10.0); %Lymphocytes 12.5 % (21.0-51.0); %Monocytes 7.4 % (0.0-10.0); %Neutrophils 77.6 % (42.0-75.0); Hemoglobin 8.5 g/dL (14.0-18.0); Mean Corpuscular HGB CONC 32.7 g/dL (32.0-36.0); Mean Corpuscular Hemoglobin 30.2 pg (27.0-31.0); Mean Corpuscular Volume 92.4 fL (78.0-98.0); Mean Platelet Volume 7.7 fL (7.4-10.4); Platelet Count 334 thou/uL (130-400); RBC Distribution Width 12.5 % (11.5-14.5); Red Blood Cell (RBC) Count 2.83 mill/uL (4.70-6.10); White Blood Cell (WBC) Count 8.3 thou/uL (4.8-10.8)
[2018-12-25 06:46] LABS: Anion Gap 14 mmol/L (10-20); BUN (Urea Nitrogen) 20 mg/dL (8.4-25.7); Calc. Creatinine Clearance 59 mL/min (70-130); Calcium 7.8 mg/dL (7.8-10.44); Carbon Dioxide 18 mmol/L (23-31); Chloride 107 mmol/L (98-107); Estimated GFR-MDRD 47; Glucose 99 mg/dL (80-115); Potassium 3.6 mmol/L (3.5-5.1); Sodium 135 mmol/L (136-145)
[2018-12-25] MEDS: PRE FILLED SC SCH (08:55)
[2018-12-25] MEDS: Ferrous Sulfate 325 MG TAB PO SCH ×2 (08:55→17:33)
[2018-12-25] MEDS: Enoxaparin Sodium 40 MG/0.4 ML SYRINGE SC SCH (08:55)
[2018-12-25] MEDS: INSULIN GLARGINE SC SCH (08:55)
[2018-12-25] MEDS: Aspirin Chewable 81 MG TAB PO SCH (08:56)
[2018-12-25] MEDS: Atorvastatin Calcium 40 MG TAB PO SCH (08:56)
[2018-12-25] MEDS: Lisinopril 5 MG TAB PO SCH (08:56)
[2018-12-25] MEDS: Carvedilol 25 MG TAB PO SCH ×2 (08:56→20:39)
[2018-12-25] MEDS: Senokot S 8.6-50 MG TAB PO SCH ×2 (08:57→20:39)
[2018-12-25] MEDS: Fish Oil 1,000 MG CAP PO SCH (08:57)
[2018-12-25] MEDS: Polyethylene Glycol 3350 17 GM Packet PO SCH (08:57)
[2018-12-25] MEDS: Amlodipine 5 MG TAB PO SCH ×2 (08:57→20:38)
[2018-12-25] MEDS: Acetaminophen 325 MG TAB PO PRN ×2 (09:02→17:33)
--- NOTE | 2018-12-25 12:17 | PRG ---
DATE OF SERVICE: 12/25/2018 SUBJECTIVE: A 63-year-old gentleman being seen for acute kidney injury. The patient denied any nausea, vomiting, or chest pain. OBJECTIVE: GENERAL: The patient is awake and alert. VITAL SIGNS: Afebrile, pulse 84, breathing 16, blood pressure 162/78. GENERAL APPEARANCE AND MENTAL STATUS: Fair. HEAD/NECK: Normocephalic. Atraumatic. EYES: EOMI. No deformity. EARS: Clear. No ulcers. NOSE: Intact. No lesions. MOUTH: Clear. No discharge. THROAT: Clear. No exudate. LUNGS: Clear. No crackles. CARDIAC: S1, S2. No rub. ABDOMEN: Benign. Bowel sounds positive. GENITALIA/RECTUM: Whyte absent. BACK/EXTREMITIES: Edema 0+. NEUROLOGICAL: Alert and motor intact. SKIN: LYMPHATICS: LABORATORY DATA: Labs show hemoglobin 8.5, creatinine 1.5. ASSESSMENT AND PLAN: 1. Acute kidney injury, improved. 2. Hypertension, stable. 3. Anemia, stable. 4. Metabolic acidosis, stable. I will sign off on this patient. The patient will follow up with Dr. Macario in 1 to 2 weeks. Job ID: [id number]
--- NOTE | 2018-12-26 06:17 | PDOC.FM ---
- Subjective Subjective: NAEO. Patient reports improved SOB & denies any fever/chills, N/V, or chest pain. Does endorse some loose stools but says they are improving. Still endorses wheezing and says it kept him up last night. Denies any nasal congestion or postnasal drip but is coughing up small amounts of yellow-tinged sputum. - Objective MAR Reviewed: Yes Vital Signs & Weight: Vital Signs (12 hours) Temp Pulse Resp BP BP Pulse Ox 12/26/18 04:26 97.6 F 65 18 157/60 H 96 12/26/18 00:15 97.8 F 65 18 153/64 H 95 12/25/18 20:46 98.7 F 66 18 137/73 95 12/25/18 20:38 75 137/73 Weight Admit Weight 80.739 kg Weight 80.74 kg I&O: 12/24/18 12/25/18 12/26/18 06:59 06:59 06:59 Intake Total 3250 480 660 Output Total 3450 800 1750 Balance -200 -320 -1090 Result Diagrams: 12/26/18 05:44 12/26/18 05:44 Phys Exam - Physical Examination Constitutional: NAD HEENT: moist MMs, sclera anicteric Neck: supple, full ROM Respiratory: no wheezing, no rales, no rhonchi, clear to auscultation bilateral Cardiovascular: RRR, no significant murmur Gastrointestinal: soft, non-tender, no distention, positive bowel sounds Neurological: non-focal, moves all 4 limbs Psychiatric: normal affect, A&O x 3 Skin: no rash, normal turgor Dx/Plan (1) YESSICA (acute kidney injury) Code(s): N17.9 - ACUTE KIDNEY FAILURE, UNSPECIFIED Status: Resolved (2) CAD (coronary artery disease) Code(s): I25.10 - ATHSCL HEART DISEASE OF [place] CORONARY ARTERY W/O ANG PCTRS Status: Acute (3) CKD (chronic kidney disease), stage III Code(s): N18.3 - CHRONIC KIDNEY DISEASE, STAGE 3 (MODERATE) Status: Acute (4) Diabetes Code(s): E11.9 - TYPE 2 DIABETES MELLITUS WITHOUT COMPLICATIONS Status: Acute Qualifiers: Diabetes mellitus type: type 2 Diabetes mellitus complication status: with kidney complications Diabetes mellitus complication detail: with chronic kidney disease Chronic kidney disease stage: stage 3 (moderate) (5) Dry gangrene Code(s): I96 - [place]GR[place], NOT ELSEWHERE CLASSIFIED Status: Resolved (6) HTN (hypertension) Code(s): I10 - ESSENTIAL (PRIMARY) HYPERTENSION Status: Acute (7) Hyponatremia Code(s): E87.1 - HYPO-OSMOLALITY AND HYPONATREMIA Status: Acute (8) Osteomyelitis Code(s): M86.9 - OSTEOMYELITIS, UNSPECIFIED Status: Ruled-out (9) S/P CABG (coronary artery bypass graft) Code(s): Z95.1 - PRESENCE OF AORTOCORONARY BYPASS GRAFT Status: Acute (10) Sepsis Code(s): A41.9 - SEPSIS, UNSPECIFIED ORGANISM Status: Resolved - Plan Plan: 63YOM w/ a PMH of poorly controlled DMII who presented to the ED & was found to be septic 2/2 left foot dry gangrene. Sepsis 2/2 dry gangrene of L 1st toe s/p left BKA - tachycardic & febrile w/ leukocytosis on admission. Failed outpatient augmentin. Foot XR & MRI negative for osteo. - Patient is POD #6 s/p left BKA. Will continue pain control with tylenol & tramadol PRN. - Referral to inpatient rehab placed 2 days ago. Patient cleared for d/c from surgical standpoint, just waiting on acceptance to rehab. Anemia - Patient likely has chronic normocytic anemia 2/2 CKD as Hgb on presentation was 9.9. Iron studies significant for iron deficiency as well. - Patient is s/p 1 unit of PRBCs since admission. Hgb stable at 8.3 this AM. - No active bleeding from surgical site per gen surg; however, FOBT from yesterday was + which could explain periodic dips in Hgb. Rectal exam unremarkable. Will continue PO ferrous sulfate & instruct patient to follow-up at our clinic for a repeat scope to evaluate for source of bleeding since he is HD stable. Will start on GI PPx as well. - Will continue to monitor closely and transfuse PRN. YESSICA on CKD3 - Resolved as Cr down to 1.43 w/ an eGFR of 50 this AM which is his baseline. - Will continue to monitor with QD BMPs. T2DM, uncontrolled - A1c 12.1 on 11/12 - Accuchecks, SSI - Will continue to monitor BG closely & consider adjusting lantus as BG low at 60 this AM. Has been low last several mornings. Hyponatremia - Na down to 132 this AM. Patient asymptomatic. - Will continue to monitor with am bmps. CAD s/p CABG - Aware, will continue home meds. HTN - Tight control has not been achieved over last several days. Will continue home meds & consider adding a third agent to achieve SBP goal of <130. IVFs: SL Abx: none VTE PPx: lovenox GI PPx: protonix Diet: CC, HH Dispo: POD #6 s/p BKA, will continue to monitor, dc pending rehab placement Addendum - Attending - Attending Attestation Date/Time: 12/26/18 9290 I personally evaluated the patient and discussed the management with Dr. Escobar I agree with the History, Examination, Assessment and Plan documented above with any addition or exceptions noted below Patient denies any complaints. Afebrile VSS. A/P: 1) PVD s/p BKA- cotninue PT; wound heling well. awaiting rehab placement. 2) DM- BG low in AM 60s- will decrease basal insulin. Continue to monitor BG. 3) HTN- BP meds adjusted.
[2018-12-26 06:53] LABS: #Eosinphils 0.2 thou/uL (0.0-0.7); #Lymphocytes 1.3 thou/uL (1.20-3.40); #Monocytes 0.6 thou/uL (0.11-0.59); #Neutrophils 5.2 thou/uL (1.40-6.50); %Basophils 0.4 % (0.0-1.0); %Eosinophils 3.2 % (0.0-10.0); %Lymphocytes 17.6 % (21.0-51.0); %Monocytes 7.6 % (0.0-10.0); %Neutrophils 71.3 % (42.0-75.0); Hemoglobin 8.3 g/dL (14.0-18.0); Mean Corpuscular Hemoglobin 29.9 pg (27.0-31.0); Mean Corpuscular Volume 93.4 fL (78.0-98.0); Mean Platelet Volume 7.6 fL (7.4-10.4); Platelet Count 340 thou/uL (130-400); RBC Distribution Width 12.8 % (11.5-14.5); Red Blood Cell (RBC) Count 2.77 mill/uL (4.70-6.10); White Blood Cell (WBC) Count 7.4 thou/uL (4.8-10.8)
[2018-12-26 07:05] LABS: Anion Gap 9 mmol/L (10-20); BUN (Urea Nitrogen) 16 mg/dL (8.4-25.7); Calc. Creatinine Clearance 62 mL/min (70-130); Carbon Dioxide 21 mmol/L (23-31); Chloride 105 mmol/L (98-107); Estimated GFR-MDRD 50; Glucose 60 mg/dL (80-115); Potassium 3.4 mmol/L (3.5-5.1); Sodium 132 mmol/L (136-145)
[2018-12-26] MEDS: Fish Oil 1,000 MG CAP PO SCH (09:33)
[2018-12-26] MEDS: Senokot S 8.6-50 MG TAB PO SCH ×2 (09:36→19:55)
[2018-12-26] MEDS: Polyethylene Glycol 3350 17 GM Packet PO SCH (09:36)
[2018-12-26] MEDS: Atorvastatin Calcium 40 MG TAB PO SCH (09:36)
[2018-12-26] MEDS: Enoxaparin Sodium 40 MG/0.4 ML SYRINGE SC SCH (09:37)
[2018-12-26] MEDS: Carvedilol 25 MG TAB PO SCH ×2 (09:37→20:34)
[2018-12-26] MEDS: Ferrous Sulfate 325 MG TAB PO SCH ×2 (09:37→17:55)
[2018-12-26] MEDS: Amlodipine 5 MG TAB PO SCH ×2 (09:37→20:34)
[2018-12-26] MEDS: Aspirin Chewable 81 MG TAB PO SCH (09:37)
[2018-12-26] MEDS: PRE FILLED SC SCH (09:38)
[2018-12-26] MEDS: INSULIN GLARGINE SC SCH (09:38)
[2018-12-26] MEDS ORDERED: Insulin Glargine 28 UNITS in Pre-Filled Syringe 1 EACH SC SCH ×2 (10:26→10:45)
[2018-12-26] MEDS: Lisinopril 5 MG TAB PO SCH (11:04)
[2018-12-26] MEDS: traMADol HCl 50 MG TAB PO PRN ×2 (14:23→20:36)
[2018-12-26] MEDS: Ondansetron PF 4 MG/2 ML Vial IVP PRN (20:33)
[2018-12-26] MEDS ORDERED: Lisinopril 5 MG TAB PO SCH (21:00)
[2018-12-27] MEDS: Acetaminophen 325 MG TAB PO PRN (02:14)
[2018-12-27] MEDS: traMADol HCl 50 MG TAB PO PRN (02:14)
[2018-12-27] MEDS: Ondansetron PF 4 MG/2 ML Vial IVP PRN (06:20)
[2018-12-27] MEDS ORDERED: Senokot S 8.6-50 MG TAB PO PRN (06:39)
[2018-12-27] MEDS ORDERED: Polyethylene Glycol 3350 17 GM Packet PO PRN (06:39)
--- NOTE | 2018-12-27 06:44 | PDOC.FM ---
- Subjective Subjective: NAEO. Patient states he does not feel well this AM. Denies any SOB or V/D but does endorse some abdominal cramping/queasiness and nausea. Reports it is due to tramadol that he got overnight even though he says he did not ask for it and was not in pain. Endorses wheezing that is apparent on exam. Still having a mildly productive cough but denies any fever/chills. - Objective MAR Reviewed: Yes Vital Signs & Weight: Vital Signs (12 hours) Temp Pulse Resp BP Pulse Ox 12/27/18 04:23 98.0 F 62 20 148/80 H 96 12/27/18 00:24 98.0 F 63 20 155/77 H 95 12/26/18 20:42 97.9 F 60 20 146/83 H 96 12/26/18 20:34 68 12/26/18 19:30 93 L Weight Admit Weight 80.739 kg Weight 80.74 kg I&O: 12/25/18 12/26/18 12/27/18 06:59 06:59 06:59 Intake Total 453 340 0234 Output Total 800 1750 1500 Balance -320 -1090 404 Result Diagrams: 12/27/18 05:59 12/27/18 05:59 Phys Exam - Physical Examination Constitutional: NAD HEENT: moist MMs, sclera anicteric Neck: supple, full ROM Respiratory: no wheezing, no rales, wheezing present (end expiratory wheezing heard throughout), clear to auscultation bilateral Cardiovascular: RRR, no significant murmur Gastrointestinal: soft, non-tender, no distention, positive bowel sounds s/p L BKA & missing all toes on R foot Neurological: non-focal Psychiatric: normal affect, A&O x 3 Skin: no rash, normal turgor Dx/Plan (1) YESSICA (acute kidney injury) Code(s): N17.9 - ACUTE KIDNEY FAILURE, UNSPECIFIED Status: Resolved (2) CAD (coronary artery disease) Code(s): I25.10 - ATHSCL HEART DISEASE OF [place] CORONARY ARTERY W/O ANG PCTRS Status: Acute (3) CKD (chronic kidney disease), stage III Code(s): N18.3 - CHRONIC KIDNEY DISEASE, STAGE 3 (MODERATE) Status: Acute (4) Diabetes Code(s): E11.9 - TYPE 2 DIABETES MELLITUS WITHOUT COMPLICATIONS Status: Acute Qualifiers: Diabetes mellitus type: type 2 Diabetes mellitus complication status: with kidney complications Diabetes mellitus complication detail: with chronic kidney disease Chronic kidney disease stage: stage 3 (moderate) (5) Dry gangrene Code(s): I96 - GANGRENE, NOT ELSEWHERE CLASSIFIED Status: Resolved (6) HTN (hypertension) Code(s): I10 - ESSENTIAL (PRIMARY) HYPERTENSION Status: Acute (7) Hyponatremia Code(s): E87.1 - HYPO-OSMOLALITY AND HYPONATREMIA Status: Acute (8) Osteomyelitis Code(s): M86.9 - OSTEOMYELITIS, UNSPECIFIED Status: Ruled-out (9) S/P CABG (coronary artery bypass graft) Code(s): Z95.1 - PRESENCE OF AORTOCORONARY BYPASS GRAFT Status: Acute (10) Sepsis Code(s): A41.9 - SEPSIS, UNSPECIFIED ORGANISM Status: Resolved - Plan Plan: 63YOM w/ a PMH of poorly controlled DMII who presented to the ED & was found to be septic 2/2 left foot dry gangrene. Sepsis 2/2 dry gangrene of L 1st toe s/p left BKA - tachycardic & febrile w/ leukocytosis on admission. Failed outpatient augmentin. Foot XR & MRI negative for osteo. - Patient is POD #7 s/p left BKA. Will continue pain control with tylenol & tramadol PRN. - Referral to inpatient rehab placed 3 days ago. Patient cleared for d/c from surgical standpoint, just waiting on acceptance to rehab. Anemia - Patient likely has chronic normocytic anemia 2/2 CKD as Hgb on presentation was 9.9. Iron studies significant for iron deficiency as well. - Patient is s/p 1 unit of PRBCs since admission. Hgb stable at 8.1 this AM. - No active bleeding from surgical site per gen surg; however, FOBT from yesterday was + which could explain periodic dips in Hgb. Rectal exam unremarkable. Will continue PO ferrous sulfate & instruct patient to follow-up at our clinic for a repeat scope to evaluate for source of bleeding since he is HD stable. Will continue GI PPx with protonix. - Will continue to monitor closely and transfuse PRN. YESSICA on CKD3 - Resolved as patient's Cr and eGFR are stable at baseline range. T2DM, uncontrolled - A1c 12.1 on 11/12 - Accuchecks, SSI - Will continue to monitor BG closely & consider adjusting lantus again today as BG low at 63 this AM. Ranged from 63-121 yesterday. Hyponatremia - Na stable at 133 this AM. Patient asymptomatic. - Will continue to monitor with am bmps. CAD s/p CABG - Aware, will continue home meds. HTN - Tight control has not yet been achieved over last several days. Will continue home meds & increase lisinorpil to 30mg QD today in an attempt to achieve a SBP goal of <130. IVFs: SL Abx: none VTE PPx: lovenox GI PPx: protonix Diet: CC, HH Dispo: POD #7 s/p BKA, will continue to monitor, dc pending rehab placement Addendum - Attending - Attending Attestation Date/Time: 12/27/18 4664 I personally evaluated the patient and discussed the management with Dr. Escobar I agree with the History, Examination, Assessment and Plan documented above with any addition or exceptions noted below- Patient c/o congestion and whezing this morning. Afebrile VSS. A/P: 1) Wheezing- prn nebs ordered. currently lungs clear. 2) PVD s/p BKA- continue PT; awaiting insurance approval for rehab. 3) DM - hypoglycemic in mornings- insulin decreased and encouraged patient to eat snack in evening. 4) HTN- adjust meds for better control.
[2018-12-27 06:56] LABS: #Eosinphils 0.3 thou/uL (0.0-0.7); #Lymphocytes 1.6 thou/uL (1.20-3.40); #Monocytes 0.7 thou/uL (0.11-0.59); #Neutrophils 5.6 thou/uL (1.40-6.50); %Basophils 0.5 % (0.0-1.0); %Eosinophils 3.5 % (0.0-10.0); %Lymphocytes 19.1 % (21.0-51.0); %Monocytes 8.5 % (0.0-10.0); %Neutrophils 68.4 % (42.0-75.0); Hemoglobin 8.1 g/dL (14.0-18.0); Mean Corpuscular HGB CONC 32.2 g/dL (32.0-36.0); Mean Corpuscular Hemoglobin 30.1 pg (27.0-31.0); Mean Corpuscular Volume 93.6 fL (78.0-98.0); Mean Platelet Volume 7.3 fL (7.4-10.4); Platelet Count 407 thou/uL (130-400); RBC Distribution Width 12.6 % (11.5-14.5); Red Blood Cell (RBC) Count 2.67 mill/uL (4.70-6.10); White Blood Cell (WBC) Count 8.1 thou/uL (4.8-10.8)
[2018-12-27 07:19] LABS: Anion Gap 10 mmol/L (10-20); BUN (Urea Nitrogen) 16 mg/dL (8.4-25.7); Calc. Creatinine Clearance 59 mL/min (70-130); Calcium 8.6 mg/dL (7.8-10.44); Carbon Dioxide 23 mmol/L (23-31); Chloride 104 mmol/L (98-107); Estimated GFR-MDRD 48; Potassium 3.6 mmol/L (3.5-5.1); Sodium 133 mmol/L (136-145)
[2018-12-27 07:22] LABS: Glucose 59 mg/dL (80-115)
[2018-12-27] MEDS ORDERED: Insulin Glargine 28 UNITS in Pre-Filled Syringe 1 EACH SC SCH (09:00)
[2018-12-27] MEDS ORDERED: Amlodipine 5 MG TAB PO SCH (09:00)
[2018-12-27] MEDS ORDERED: Lisinopril 20 MG TAB PO SCH (09:00)
[2018-12-27] MEDS: Lisinopril 20 MG TAB PO SCH (10:09)
[2018-12-27] MEDS: Ferrous Sulfate 325 MG TAB PO SCH ×2 (10:10→18:52)
[2018-12-27] MEDS: Atorvastatin Calcium 40 MG TAB PO SCH (10:10)
[2018-12-27] MEDS: Amlodipine 10 MG TAB PO SCH (10:11)
[2018-12-27] MEDS: Aspirin Chewable 81 MG TAB PO SCH (10:11)
[2018-12-27] MEDS: Fish Oil 1,000 MG CAP PO SCH (10:11)
[2018-12-27] MEDS: Carvedilol 25 MG TAB PO SCH ×2 (10:11→20:50)
[2018-12-27] MEDS: Enoxaparin Sodium 40 MG/0.4 ML SYRINGE SC SCH (10:12)
[2018-12-27] MEDS: Insulin Glargine 26 UNITS in Pre-Filled Syringe 1 EACH SC SCH (10:12)
[2018-12-27] MEDS: HumaLOG 300 UNITS/3 ML VIAL SC PRN (20:57)
--- NOTE | 2018-12-28 06:41 | PDOC.FM ---
- Subjective Subjective: Patient noted to be significantly tachypnic breathing 32 times/minute this AM. Otherwise, NAEO. Patient reports feeling much better this AM. States the breathing treatments helped a lot yesterday. Denies any N/V/D, SOB, or chest pain. Is ready to leave the hospital. - Objective MAR Reviewed: Yes Vital Signs & Weight: Vital Signs (12 hours) Temp Pulse Resp BP Pulse Ox 12/28/18 06:22 67 32 H 93 L 12/28/18 04:23 98.7 F 67 20 121/74 96 12/28/18 00:00 98.3 F 65 20 123/76 93 L 12/27/18 23:10 66 18 92 L 12/27/18 20:30 94 L 12/27/18 20:00 97.9 F 65 20 135/66 94 L Weight Admit Weight 80.739 kg Weight 80.74 kg I&O: 12/26/18 12/27/18 12/28/18 06:59 06:59 06:59 Intake Total 660 1904 480 Output Total 1750 1500 Balance -1090 404 480 Result Diagrams: 12/27/18 05:59 12/28/18 06:38 Phys Exam - Physical Examination Constitutional: NAD HEENT: moist MMs, sclera anicteric Neck: supple, full ROM Respiratory: no wheezing, no rales, no rhonchi, clear to auscultation bilateral Cardiovascular: RRR, no significant murmur Gastrointestinal: positive bowel sounds s/p left BKA and amputation of all R foot toes Neurological: non-focal Psychiatric: normal affect, A&O x 3 Skin: no rash, normal turgor Dx/Plan (1) YESSICA (acute kidney injury) Code(s): N17.9 - ACUTE KIDNEY FAILURE, UNSPECIFIED Status: Resolved (2) CAD (coronary artery disease) Code(s): I25.10 - ATHSCL HEART DISEASE OF [place] CORONARY ARTERY W/O ANG PCTRS Status: Acute (3) CKD (chronic kidney disease), stage III Code(s): N18.3 - CHRONIC KIDNEY DISEASE, STAGE 3 (MODERATE) Status: Acute (4) Diabetes Code(s): E11.9 - TYPE 2 DIABETES MELLITUS WITHOUT COMPLICATIONS Status: Acute Qualifiers: Diabetes mellitus type: type 2 Diabetes mellitus complication status: with kidney complications Diabetes mellitus complication detail: with chronic kidney disease Chronic kidney disease stage: stage 3 (moderate) (5) Dry gangrene Code(s): I96 - GANGRENE, NOT ELSEWHERE CLASSIFIED Status: Resolved (6) HTN (hypertension) Code(s): I10 - ESSENTIAL (PRIMARY) HYPERTENSION Status: Acute (7) Hyponatremia Code(s): E87.1 - HYPO-OSMOLALITY AND HYPONATREMIA Status: Acute (8) Osteomyelitis Code(s): M86.9 - OSTEOMYELITIS, UNSPECIFIED Status: Ruled-out (9) S/P CABG (coronary artery bypass graft) Code(s): Z95.1 - PRESENCE OF AORTOCORONARY BYPASS GRAFT Status: Acute (10) Sepsis Code(s): A41.9 - SEPSIS, UNSPECIFIED ORGANISM Status: Resolved - Plan Plan: 63YOM w/ a PMH of poorly controlled DMII who presented to the ED & was found to be septic 2/2 left foot dry gangrene. Sepsis 2/2 dry gangrene of L 1st toe s/p left BKA - tachycardic & febrile w/ leukocytosis on admission. Failed outpatient augmentin. Foot XR & MRI negative for osteo. - Patient is POD #8 s/p left BKA. Will continue pain control with tylenol & tramadol PRN. - Referral to inpatient rehab placed 4 days ago. Patient cleared for d/c from surgical standpoint, just waiting on acceptance to rehab. Anemia - Patient likely has chronic normocytic anemia 2/2 CKD as Hgb on presentation was 9.9. Iron studies significant for iron deficiency as well. - Patient is s/p 1 unit of PRBCs since admission. Hgb stable at 8.1 yesterday & last several days. - No active bleeding from surgical site per gen surg; however, FOBT from yesterday was + which could explain periodic dips in Hgb. Rectal exam unremarkable. Will continue PO ferrous sulfate & instruct patient to follow-up at our clinic for a repeat scope to evaluate for source of bleeding since he is HD stable. Will continue GI PPx with protonix. - Will check CBC only if patient becomes symptomatic. YESSICA on CKD3 - Resolved as patient's Cr and eGFR are stable at baseline range. T2DM, uncontrolled - A1c 12.1 on 11/12 - Accuchecks, SSI - Will continue to monitor BG closely & maintain current lantus dose. Ranged from 63-305 yesterday. Patient admitted to eating 2 taco stevens tacos and drinking a pepsi for dinner last night which likely caused his only elevated BG level yesterday. Educated on post-dinner snack if he eats an early dinner to prevent AM hypoglycemia and BG WNLs at 90 this AM. Hyponatremia - Na stable at 131 this AM. Patient asymptomatic. - Will continue to monitor with am bmps. CAD s/p CABG - Aware, will continue home meds. HTN - Improved control after increasing lisinopril to 30mg QD. Will continue other home meds & current lisinopril dose and continue to monitor renal function at new higher dose while in hospital. IVFs: SL Abx: none VTE PPx: lovenox GI PPx: protonix Diet: WES NANCE Dispo: POD #8 s/p BKA, cleared for d/c, pending rehab placement
[2018-12-28 07:41] LABS: Anion Gap 10 mmol/L (10-20); BUN (Urea Nitrogen) 18 mg/dL (8.4-25.7); Calc. Creatinine Clearance 53 mL/min (70-130); Calcium 8.1 mg/dL (7.8-10.44); Carbon Dioxide 22 mmol/L (23-31); Chloride 103 mmol/L (98-107); Estimated GFR-MDRD 42; Glucose 89 mg/dL (80-115); Potassium 3.9 mmol/L (3.5-5.1); Sodium 131 mmol/L (136-145)
[2018-12-28] MEDS: Atorvastatin Calcium 40 MG TAB PO SCH (08:29)
[2018-12-28] MEDS: Acetaminophen 325 MG TAB PO PRN ×3 (08:29→20:13)
[2018-12-28] MEDS: Lisinopril 20 MG TAB PO SCH (08:29)
[2018-12-28] MEDS: Ferrous Sulfate 325 MG TAB PO SCH ×2 (08:29→17:57)
[2018-12-28] MEDS: Aspirin Chewable 81 MG TAB PO SCH (08:31)
[2018-12-28] MEDS: Carvedilol 25 MG TAB PO SCH ×2 (08:31→20:13)
[2018-12-28] MEDS: Enoxaparin Sodium 40 MG/0.4 ML SYRINGE SC SCH (08:31)
[2018-12-28] MEDS: Fish Oil 1,000 MG CAP PO SCH (08:31)
[2018-12-28] MEDS: Amlodipine 10 MG TAB PO SCH (08:31)
[2018-12-28] MEDS: Insulin Glargine 26 UNITS in Pre-Filled Syringe 1 EACH SC SCH (08:32)
[2018-12-28] MEDS: Liraglutide [Victoza 2-Pak] 1.8 MG SC SCH ×2 (13:09→13:13)
--- NOTE | 2018-12-29 06:44 | PDOC.FM ---
- Subjective Subjective: Patient was placed on 2L NC overnight as sats were noted to drop to 91%. Satting well on RA on exam & denies any SOB currently or wheezing. Just reports persistent cough with minimal productive sputum. Endorses using incentive spirometry. - Objective MAR Reviewed: Yes Vital Signs & Weight: Vital Signs (12 hours) Temp Pulse Resp BP Pulse Ox 12/29/18 04:35 97.6 F 65 18 149/70 H 95 12/29/18 04:30 76 24 H 94 L 12/29/18 00:09 98.0 F 61 18 138/79 95 12/28/18 20:32 98.2 F 65 18 142/76 H 94 L 12/28/18 20:00 94 L Weight Admit Weight 80.739 kg Weight 80.74 kg I&O: 12/27/18 12/28/18 12/29/18 06:59 06:59 06:59 Intake Total 1904 480 900 Output Total 1500 600 Balance 404 480 300 Result Diagrams: 12/27/18 05:59 12/29/18 06:23 Phys Exam - Physical Examination Constitutional: NAD HEENT: moist MMs, sclera anicteric Neck: supple, full ROM Respiratory: no rales, no rhonchi, wheezing present end expiratory wheezing in LLL with decreased breath sounds in bases Cardiovascular: RRR, no significant murmur Gastrointestinal: positive bowel sounds s/p left BKA & complete toe amputation in right foot Neurological: non-focal Psychiatric: normal affect, A&O x 3 Skin: no rash, normal turgor Dx/Plan (1) YESSICA (acute kidney injury) Code(s): N17.9 - ACUTE KIDNEY FAILURE, UNSPECIFIED Status: Resolved (2) CAD (coronary artery disease) Code(s): I25.10 - ATHSCL HEART DISEASE OF [place] CORONARY ARTERY W/O ANG PCTRS Status: Chronic (3) CKD (chronic kidney disease), stage III Code(s): N18.3 - CHRONIC KIDNEY DISEASE, STAGE 3 (MODERATE) Status: Chronic (4) Diabetes Code(s): E11.9 - TYPE 2 DIABETES MELLITUS WITHOUT COMPLICATIONS Status: Chronic Qualifiers: Diabetes mellitus type: type 2 Diabetes mellitus complication status: with kidney complications Diabetes mellitus complication detail: with chronic kidney disease Chronic kidney disease stage: stage 3 (moderate) (5) Dry gangrene Code(s): I96 - GANGRENE, NOT ELSEWHERE CLASSIFIED Status: Resolved (6) HTN (hypertension) Code(s): I10 - ESSENTIAL (PRIMARY) HYPERTENSION Status: Chronic (7) Hyponatremia Code(s): E87.1 - HYPO-OSMOLALITY AND HYPONATREMIA Status: Chronic (8) Osteomyelitis Code(s): M86.9 - OSTEOMYELITIS, UNSPECIFIED Status: Ruled-out (9) S/P CABG (coronary artery bypass graft) Code(s): Z95.1 - PRESENCE OF AORTOCORONARY BYPASS GRAFT Status: Chronic (10) Sepsis Code(s): A41.9 - SEPSIS, UNSPECIFIED ORGANISM Status: Resolved - Plan Plan: 63YOM w/ a PMH of poorly controlled DMII who presented to the ED & was found to be septic 2/2 left foot dry gangrene. Sepsis 2/2 dry gangrene of L 1st toe s/p left BKA - tachycardic & febrile w/ leukocytosis on admission. Failed outpatient augmentin. Foot XR & MRI negative for osteo. - Patient is POD #9 s/p left BKA. Will continue pain control with tylenol & tramadol PRN. - Referral to inpatient rehab placed 4 days ago. Patient cleared for d/c from surgical standpoint, just waiting on acceptance to rehab. Anemia - Patient likely has chronic normocytic anemia 2/2 CKD as Hgb on presentation was 9.9. Iron studies significant for iron deficiency as well. - Patient is s/p 1 unit of PRBCs since admission. Hgb stable at ~8 for last several days. - No active bleeding from surgical site per gen surg; however, FOBT from yesterday was + which could explain periodic dips in Hgb. Rectal exam unremarkable. Will continue PO ferrous sulfate & instruct patient to follow-up at our clinic for a repeat scope to evaluate for source of bleeding since he is HD stable. Will continue GI PPx with protonix. - Will check CBC only if patient becomes symptomatic. YESSICA on CKD3 - Resolved as patient's Cr and eGFR are stable at baseline range. T2DM, uncontrolled - A1c 12.1 on 11/12 - Accuchecks, SSI - Will continue to monitor BG closely & maintain current lantus dose. Ranged from 54-91 yesterday. Patient may require eating snacks throughout the day to prevent hypoglycemia. Will educate on this. Hyponatremia - Na down to 128 this AM. Patient asymptomatic. - Will continue to monitor with am bmps & consider urine studies if it continues to drop. CAD s/p CABG - Aware, will continue home meds. HTN - Improved control after increasing lisinopril to 30mg QD. Will continue other home meds & current lisinopril dose and continue to monitor renal function at new higher dose while in hospital. IVFs: SL Abx: none VTE PPx: lovenox GI PPx: protonix Diet: CC, HH Dispo: POD #9 s/p BKA, cleared for d/c, pending rehab placement
[2018-12-29 07:03] LABS: Anion Gap 11 mmol/L (10-20); BUN (Urea Nitrogen) 20 mg/dL (8.4-25.7); Calc. Creatinine Clearance 52 mL/min (70-130); Calcium 8.4 mg/dL (7.8-10.44); Carbon Dioxide 22 mmol/L (23-31); Chloride 99 mmol/L (98-107); Estimated GFR-MDRD 41; Glucose 85 mg/dL (80-115); Potassium 3.9 mmol/L (3.5-5.1); Sodium 128 mmol/L (136-145)
[2018-12-29] MEDS: Ferrous Sulfate 325 MG TAB PO SCH ×2 (09:33→17:16)
[2018-12-29] MEDS: Atorvastatin Calcium 40 MG TAB PO SCH (09:34)
[2018-12-29] MEDS: Carvedilol 25 MG TAB PO SCH ×2 (09:34→21:46)
[2018-12-29] MEDS: Lisinopril 20 MG TAB PO SCH (09:34)
[2018-12-29] MEDS: Fish Oil 1,000 MG CAP PO SCH (09:34)
[2018-12-29] MEDS: Amlodipine 10 MG TAB PO SCH (09:36)
[2018-12-29] MEDS: guaiFENesin ER 600 MG TAB PO SCH ×2 (09:36→21:46)
[2018-12-29] MEDS: Aspirin Chewable 81 MG TAB PO SCH (09:36)
[2018-12-29] MEDS ORDERED: Insulin Glargine 24 UNITS in Pre-Filled Syringe 1 EACH SC SCH ×2 (09:37→09:45)
[2018-12-29] MEDS: Enoxaparin Sodium 40 MG/0.4 ML SYRINGE SC SCH (09:37)
[2018-12-29] MEDS: Insulin Glargine 26 UNITS in Pre-Filled Syringe 1 EACH SC SCH (09:44)
[2018-12-29] MEDS ORDERED: Simethicone Chewable 80 MG TAB PO PRN (12:47)
[2018-12-29] MEDS: Acetaminophen 325 MG TAB PO PRN (15:10)
--- NOTE | 2018-12-29 18:45 | RAD ---
CHEST ONE VIEW: HISTORY: Decreased breath sounds in both lung bases. COMPARISON: 12/18/2018 FINDINGS: Postop midline sternotomy. Cardiomegaly with bilateral vascular congestion, bilateral interstitial e maranda, and pleural effusions, greater on the left side, which certainly could represent some degree of congestive heart failure. There is also some increased density in the right infrahilar region, whic h certainly could represent some focal right middle lobe or right lower lobe pneumonia. Short-term f ollowup with upright PA and lateral chest might be of benefit in this evaluation. Correlate clinical ly. These findings are new when compared to the 12/18/2018 study. CODE T POS: [facility]
[2018-12-29] MEDS ORDERED: Furosemide 20 MG/2 ML VIAL SLOW IVP SCH (20:00)
[2018-12-29] MEDS: Melatonin 3 MG TAB PO PRN (21:49)
[2018-12-30] MEDS ORDERED: Furosemide 40 MG/4 ML VIAL SLOW IVP SCH ×2 (01:15→14:38)
[2018-12-30] MEDS: Dextrose 50% Abboject 50 ML SYRINGE SLOW IVP PRN ×2 (02:56→07:49)
--- NOTE | 2018-12-30 03:53 | PDOC.EVN ---
Event Note - Event Note Event Note: Residents paged for concern of worsening respiratory distress. Exam revealed crackles midway up BL lung qiu and 96% on 4L NC. VS otherwise stable 40mg IV lasix given with minimal improvement. Will transfer down to [facility] for BiPAP and monitor closely overnight. No chest pain or tachycardia at this time. If persistent or little improvement on BiPAP, will consider CTA. Addendum - Attending - Attending Attestation Date/Time: 12/30/18 6499 I personally evaluated the patient and discussed the management with Dr. Tian. I agree with the History, Examination, Assessment and Plan documented above with any addition or exceptions noted below.
[2018-12-30 05:28] LABS: Anion Gap 9 mmol/L (10-20); BUN (Urea Nitrogen) 20 mg/dL (8.4-25.7); Calc. Creatinine Clearance 52 mL/min (70-130); Calcium 8.2 mg/dL (7.8-10.44); Carbon Dioxide 22 mmol/L (23-31); Chloride 95 mmol/L (98-107); Estimated GFR-MDRD 41; Glucose 71 mg/dL (80-115); Potassium 4.1 mmol/L (3.5-5.1); Sodium 122 mmol/L (136-145)
--- NOTE | 2018-12-30 05:37 | PDOC.FM ---
- Subjective Subjective: Patient was moved to the IMCU overnight after he was noted to desat to the 80s and required BIPap to maintain adequate sats. Was taken off of Bipap and maintaining sats between 92-96% on 5L NC. s/p 60mg IV lasix overnight. Patient endorses persistent SOB and persistent minimally productive cough on exam this AM. Was having difficulty speaking 2/2 SOB and was complaining of chills. Also has no appetite. - Objective MAR Reviewed: Yes Vital Signs & Weight: Vital Signs (12 hours) Temp Pulse Resp BP BP Pulse Ox 12/30/18 03:43 50 L 12/30/18 00:44 54 L 20 96 12/30/18 00:00 97.6 F 61 22 H 139/92 H 92 L 12/29/18 20:00 97.5 F L 60 22 H 148/80 H 95 12/29/18 17:58 57 L 20 95 Weight Admit Weight 80.739 kg Weight 80.74 kg I&O: 12/28/18 12/29/18 12/30/18 06:59 06:59 06:59 Intake Total 480 1400 700 Output Total 1050 Balance 480 350 700 Result Diagrams: 12/27/18 05:59 12/30/18 04:53 Phys Exam - Physical Examination Constitutional: NAD HEENT: moist MMs Neck: supple, full ROM Respiratory: wheezing present expiratory wheezing in LL lung field; difficult to examine 2/2 patient being unable to lean forward 2/2 SOB Cardiovascular: RRR, no significant murmur Musculoskeletal: edema present (pitting edema in right ankle w/ pulses difficult to palpate) Neurological: non-focal s/p left BKA Psychiatric: normal affect, A&O x 3 Skin: no rash, normal turgor Dx/Plan (1) YESSICA (acute kidney injury) Code(s): N17.9 - ACUTE KIDNEY FAILURE, UNSPECIFIED Status: Resolved (2) CAD (coronary artery disease) Code(s): I25.10 - ATHSCL HEART DISEASE OF [place] CORONARY ARTERY W/O ANG PCTRS Status: Chronic (3) CKD (chronic kidney disease), stage III Code(s): N18.3 - CHRONIC KIDNEY DISEASE, STAGE 3 (MODERATE) Status: Chronic (4) Diabetes Code(s): E11.9 - TYPE 2 DIABETES MELLITUS WITHOUT COMPLICATIONS Status: Chronic Qualifiers: Diabetes mellitus type: type 2 Diabetes mellitus complication status: with kidney complications Diabetes mellitus complication detail: with chronic kidney disease Chronic kidney disease stage: stage 3 (moderate) (5) Dry gangrene Code(s): I96 - [place]GR[place], NOT ELSEWHERE CLASSIFIED Status: Resolved (6) HTN (hypertension) Code(s): I10 - ESSENTIAL (PRIMARY) HYPERTENSION Status: Chronic (7) Hyponatremia Code(s): E87.1 - HYPO-OSMOLALITY AND HYPONATREMIA Status: Chronic (8) Osteomyelitis Code(s): M86.9 - OSTEOMYELITIS, UNSPECIFIED Status: Ruled-out (9) S/P CABG (coronary artery bypass graft) Code(s): Z95.1 - PRESENCE OF AORTOCORONARY BYPASS GRAFT Status: Chronic (10) Sepsis Code(s): A41.9 - SEPSIS, UNSPECIFIED ORGANISM Status: Resolved - Plan Plan: 63YOM w/ a PMH of poorly controlled DMII who presented to the ED & was found to be septic 2/2 left foot dry gangrene. Pulmonary edema 2/2 CHF vs. HAP vs. PE - Patient required a short time on BiPap overnight 2/2 SOB and desatting on NC. CXR showed B/L pulmonary effusions and patient was transferred to the IMCU. - s/p 60mg IV lasix overnight w/ repeat CXR showing minimal improvement. Will consider ordering an echo this AM as well to evaluate for CHF as patient states last echo was in 2017. Higher suspicion for HAP based on exam this AM depsite being afebrile as patient endorses chills with 3 blankets and high room temp. - Will get QD weights and strict I&Os. - Will consider a CTA to r/o a PE and consider initiating IV abx for HAP. Repeat CBC pending for this AM. Sepsis 2/2 dry gangrene of L 1st toe s/p left BKA - tachycardic & febrile w/ leukocytosis on admission. Failed outpatient augmentin. Foot XR & MRI negative for osteo. - Patient is POD #10 s/p left BKA. Will continue pain control with tylenol PRN. - Referral to inpatient rehab placed 4 days ago. Patient cleared for d/c from surgical standpoint, just waiting on acceptance to rehab. Anemia - Patient likely has chronic normocytic anemia 2/2 CKD as Hgb on presentation was 9.9. Iron studies significant for iron deficiency as well. - Patient is s/p 1 unit of PRBCs since admission. Hgb stable at ~8 for last several days. - No active bleeding from surgical site per gen surg; however, FOBT from yesterday was + which could explain periodic dips in Hgb. Rectal exam unremarkable. Will continue PO ferrous sulfate & instruct patient to follow-up at our clinic for a repeat scope to evaluate for source of bleeding since he is HD stable. Will continue GI PPx with protonix. - Will check CBC only if patient becomes symptomatic. YESSICA on CKD3 - Resolved as patient's Cr and eGFR are stable at baseline range. T2DM, uncontrolled - A1c 12.1 on 11/12 - Accuchecks, SSI - Will continue to monitor BG closely & hold insulin for today considering patient is not eating and has had random low BG levels yesterday. Will treat with SSI and restart insulin PRN &/or once patient starts eating again. Hyponatremia - Na down to 122 this AM. Patient asymptomatic. - Will consider initiating urine & lab studies to eval for SIADH possibly 2/2 HAP. CAD s/p CABG - Aware, will continue home meds. HTN - Will continue other home meds at current doses and continue to monitor renal function QD. IVFs: CALLIE Abx: none VTE PPx: lovenox GI PPx: protonix Diet: WES NANCE Dispo: POD #10 s/p BKA, cleared for d/c, pending rehab placement
[2018-12-30] MEDS: Aspirin Chewable 81 MG TAB PO SCH (08:19)
[2018-12-30] MEDS: Atorvastatin Calcium 40 MG TAB PO SCH (08:19)
[2018-12-30] MEDS: Amlodipine 10 MG TAB PO SCH (08:19)
[2018-12-30] MEDS: Ferrous Sulfate 325 MG TAB PO SCH ×2 (08:19→18:04)
[2018-12-30] MEDS: Lisinopril 20 MG TAB PO SCH (08:19)
[2018-12-30] MEDS: guaiFENesin ER 600 MG TAB PO SCH ×2 (08:19→20:45)
[2018-12-30] MEDS: Carvedilol 25 MG TAB PO SCH ×2 (08:19→20:45)
[2018-12-30] MEDS: Fish Oil 1,000 MG CAP PO SCH (08:19)
[2018-12-30] MEDS: Enoxaparin Sodium 40 MG/0.4 ML SYRINGE SC SCH (08:20)
--- NOTE | 2018-12-30 08:43 | RAD ---
PORTABLE UPRIGHT FRONTAL CHEST RADIOGRAPH: Date: 12/30/18 COMPARISON: 12/29/18. HISTORY: Fluid overload. FINDINGS: Hazy bibasilar pleural and parenchymal opacity noted. Multiple midline sternotomy wires are present, many of which are broken, stable. No pneumothorax. Stable prominence of cardiac silhouette. IMPRESSION: Bibasilar pleural and parenchymal opacities suggest pulmonary edema. Superimposed infection or aspira tion cannot be excluded. Follow-up to resolution advised. POS: [facility]
[2018-12-30] MEDS ORDERED: Insulin Glargine 24 UNITS in Pre-Filled Syringe 1 EACH SC SCH (09:00)
[2018-12-30 10:03] LABS: #Eosinphils 0.3 thou/uL (0.0-0.7); #Lymphocytes 0.9 thou/uL (1.20-3.40); #Monocytes 0.5 thou/uL (0.11-0.59); #Neutrophils 4.2 thou/uL (1.40-6.50); %Basophils 0.4 % (0.0-1.0); %Eosinophils 4.7 % (0.0-10.0); %Lymphocytes 14.7 % (21.0-51.0); %Monocytes 8.1 % (0.0-10.0); %Neutrophils 72.2 % (42.0-75.0); Hemoglobin 7.7 g/dL (14.0-18.0); Mean Platelet Volume 7.7 fL (7.4-10.4); Platelet Count 317 thou/uL (130-400); RBC Distribution Width 12.5 % (11.5-14.5); Red Blood Cell (RBC) Count 2.56 mill/uL (4.70-6.10); White Blood Cell (WBC) Count 5.8 thou/uL (4.8-10.8)
--- NOTE | 2018-12-30 10:09 | PRG ---
DATE OF SERVICE: ADDENDUM: Please see the note from Dr. Walden, for which I agree. The patient was seen, evaluated, examined, and discussed with the residents by bedside. This is a 63-year-old gentleman status post BKA on the due to gangrene, been doing okay, where basically just waiting on placement for rehab placement and trying to get his insurance to be willing to pay for it. The patient is actually really wanting to go home. I guess outpatient physical therapy at home is an option as well. But, try to get the Case Management, alongside otherwise same blood pressure, cholesterol and diabetes management. Job ID: [id number]
--- NOTE | 2018-12-30 11:03 | CT ---
CT PULMONARY ANGIOGRAM WITH IV CONTRAST AND 3D POSTPROCESSING Date: 12/30/18 HISTORY: Shortness of breath. Chest pain. FINDINGS: No filling defects are seen in the contrast-opacified pulmonary arterial vasculature to suggest pulmo nary embolism. There are vascular calcifications without aneurysm of the thoracic aorta. No pericardi al effusion seen. There is a small left and a moderate right pleural effusion. Adjacent infiltrates/a telectatic changes are present. No pneumothoraces are noted. Old right-sided rib fractures are presen t. There are degenerative changes in the spine. IMPRESSION: No CT evidence of pulmonary embolism. POS: [facility]
--- NOTE | 2018-12-30 11:06 | PRG ---
DATE OF SERVICE: 12/29/2018 ADDENDUM: Please see note from Dr. Escobar, for which I agree. The patient was seen, evaluated, and discussed with the residents by bedside. Unfortunately, we were just waiting on placement for rehab facilities to continuing physical therapy and we were working on diabetes control as it sounds like he is getting hypoglycemics. We are going to back off on daily insulin. He has a little bit of asthma, occasionally needs breathing treatments, but he has been fairly stable. Otherwise, lungs were still a little bit tight today. Cardiovascular, regular rate and rhythm. Right lower extremity had no edema. Left stump dressed. Some sabianist waiting on placement, which hopefully might happen tomorrow. Job ID: [id number]
[2018-12-30 11:15] LABS: Osmolality, Urine 228 mOsm/kg (300-900); Sodium, Urine 54 mmol/L (Not Available)
--- NOTE | 2018-12-30 11:49 | PRG ---
DATE OF SERVICE: 12/30/2018 SUBJECTIVE: Mr. Stacy is a 63-year-old male, who was admitted with a gangrenous toes. He is currently status post left BKA several days ago. He still having some pain and shortness of breath even this morning and some expiratory wheezes. I feel it would be prudent to check a CTA of the chest given that he is at risk for PE. In the event, his vital signs are otherwise stable. Also, I just read the CTA and there is no evidence of pulmonary embolus. We will continue with his current management. Job ID: [id number]
[2018-12-30 13:59] LABS: HBSAg Index 0.18 S/CO (0-0.99); Hep B Surf Ag Non-Reactive S/CO (NonReactive)
[2018-12-30] MEDS: Furosemide 40 MG/4 ML VIAL SLOW IVP SCH (15:15)
[2018-12-30] MEDS ORDERED: ISOVUE-370 76%-LOCM 1 ML ONE (16:58)
[2018-12-31] MEDS: Acetaminophen 325 MG TAB PO PRN ×3 (00:09→18:13)
[2018-12-31 04:59] LABS: Anion Gap 13 mmol/L (10-20); BUN (Urea Nitrogen) 21 mg/dL (8.4-25.7); Calc. Creatinine Clearance 51 mL/min (70-130); Calcium 8.2 mg/dL (7.8-10.44); Carbon Dioxide 21 mmol/L (23-31); Chloride 93 mmol/L (98-107); Estimated GFR-MDRD 40; Potassium 4.5 mmol/L (3.5-5.1); Sodium 122 mmol/L (136-145)
[2018-12-31 05:05] LABS: Glucose 59 mg/dL (80-115)
[2018-12-31] MEDS: Furosemide 40 MG/4 ML VIAL SLOW IVP SCH ×2 (05:24→13:18)
--- NOTE | 2018-12-31 06:53 | PDOC.FM ---
- Subjective Subjective: NAEO. Patient remained stable on NC over the course of the day yesterday. Endorses improved SOB on exam this AM. Still having a productive cough. Denies any N/V or chest pain. - Objective MAR Reviewed: Yes Vital Signs & Weight: Vital Signs (12 hours) Temp Pulse Ox 12/31/18 04:00 97.6 F 12/31/18 00:05 98.4 F 12/30/18 20:00 95 12/30/18 19:51 98.4 F Weight Admit Weight 80.739 kg Weight 80.74 kg Most Recent Monitor Data Heart Rate from ECG 54 NIBP 138/75 NIBP BP-Mean 96 Respiration from ECG 19 SpO2 100 I&O: 12/29/18 12/30/18 12/31/18 06:59 06:59 06:59 Intake Total 4061 580 2772 Output Total 9744 567 6386 Balance 350 125 -475 Result Diagrams: 12/30/18 09:18 12/31/18 04:08 Phys Exam - Physical Examination Constitutional: NAD HEENT: moist MMs, sclera anicteric Neck: supple, full ROM Respiratory: no rhonchi, wheezing present (end expiratory wheezing heard throught w/ decreased breath sounds in B/L bases) Cardiovascular: no significant murmur bradycardic with regular rhythm Gastrointestinal: positive bowel sounds Musculoskeletal: no edema R leg extremely tight but no pitting edema & negative mehdi's sign Neurological: non-focal, moves all 4 limbs Psychiatric: normal affect, A&O x 3 Skin: no rash, normal turgor Dx/Plan (1) YESSICA (acute kidney injury) Code(s): N17.9 - ACUTE KIDNEY FAILURE, UNSPECIFIED Status: Resolved (2) CAD (coronary artery disease) Code(s): I25.10 - ATHSCL HEART DISEASE OF [place] CORONARY ARTERY W/O ANG PCTRS Status: Chronic (3) CKD (chronic kidney disease), stage III Code(s): N18.3 - CHRONIC KIDNEY DISEASE, STAGE 3 (MODERATE) Status: Chronic (4) Diabetes Code(s): E11.9 - TYPE 2 DIABETES MELLITUS WITHOUT COMPLICATIONS Status: Chronic Qualifiers: Diabetes mellitus type: type 2 Diabetes mellitus complication status: with kidney complications Diabetes mellitus complication detail: with chronic kidney disease Chronic kidney disease stage: stage 3 (moderate) (5) Dry gangrene Code(s): I96 - GANGRENE, NOT ELSEWHERE CLASSIFIED Status: Resolved (6) HTN (hypertension) Code(s): I10 - ESSENTIAL (PRIMARY) HYPERTENSION Status: Chronic (7) Hyponatremia Code(s): E87.1 - HYPO-OSMOLALITY AND HYPONATREMIA Status: Chronic (8) Osteomyelitis Code(s): M86.9 - OSTEOMYELITIS, UNSPECIFIED Status: Ruled-out (9) S/P CABG (coronary artery bypass graft) Code(s): Z95.1 - PRESENCE OF AORTOCORONARY BYPASS GRAFT Status: Chronic (10) Sepsis Code(s): A41.9 - SEPSIS, UNSPECIFIED ORGANISM Status: Resolved - Plan Plan: 63YOM w/ a PMH of poorly controlled DMII who presented to the ED & was found to be septic 2/2 left foot dry gangrene. Pulmonary edema 2/2 CHF vs. HAP vs. PE - Patient remained fairly stable on NC yesterday between 2-5L. - Echo yesterday showed an EF of 50-55% w/ no noted evidence of diastolic dysfunction. CTA negative for a PE. Fluid retention could therefore be 2/2 decreased renal function. Will also consider screening for hypothyroidism. - Will get QD weights and strict I&Os & fluid restrict to 2L/day. Hyponatremia - Na down stable at 122 this AM. Patient remains asymptomatic. - Labs yesterday showed a low serum and urine osmolality w/ a high urine Na of 54. - Will check a serum uric acid level and consider checking a TSH since patient also has been very bradycardic w/ LE edema to r/o hypothyroidism as a possible etiology. Sepsis 2/2 dry gangrene of L 1st toe s/p left BKA - tachycardic & febrile w/ leukocytosis on admission. Failed outpatient augmentin. Foot XR & MRI negative for osteo. - Patient is POD #11 s/p left BKA. Will continue pain control with tylenol PRN. - Referral to inpatient rehab placed 4 days ago. Patient cleared for d/c from surgical standpoint, just waiting on acceptance to rehab. Anemia - Patient likely has chronic normocytic anemia 2/2 CKD as Hgb on presentation was 9.9. Iron studies significant for iron deficiency as well. - Patient is s/p 1 unit of PRBCs since admission. Hgb stable at ~8 for last several days. - No active bleeding from surgical site per gen surg; however, FOBT from yesterday was + which could explain periodic dips in Hgb. Rectal exam unremarkable. Will continue PO ferrous sulfate & instruct patient to follow-up at our clinic for a repeat scope to evaluate for source of bleeding since he is HD stable. Will continue GI PPx with protonix. - Will check CBC only if patient becomes symptomatic. YESSICA on CKD3 - Resolved as patient's Cr and eGFR are stable at baseline range. - However, will continue to monitor eGFR closely during diuresis. T2DM, uncontrolled - A1c 12.1 on 11/12 - Accuchecks, SSI - Will continue to monitor BG closely & hold insulin again today as patient is still having random low BG levels yesterday. Will treat with SSI only PRN and restart long-acting insulin PRN &/or once patient starts eating again. CAD s/p CABG - Aware, will continue home meds. HTN - Will continue home meds at current doses with exception of coreg 2/2 bradycardia into the 50s. Will consider adding another antihypertensive agent as patient's renal function may not allow increasing lisinopril anymore. IVFs: SL Abx: none VTE PPx: lovenox GI PPx: protonix Diet: CC, HH Dispo: POD #11 s/p BKA, day #2 in IMCU 2/2 hypoxia from B/L pleural effusions. Will move to floor today and continue diuresis as tolerated by patient. Will follow-up w/ CM regarding placement and consider stable to transfer once off of supplemental O2.
[2018-12-31] MEDS: Ferrous Sulfate 325 MG TAB PO SCH ×2 (09:16→18:14)
[2018-12-31] MEDS: Amlodipine 10 MG TAB PO SCH (09:16)
[2018-12-31] MEDS: Carvedilol 25 MG TAB PO SCH ×2 (09:17→21:23)
[2018-12-31] MEDS: Atorvastatin Calcium 40 MG TAB PO SCH (09:17)
[2018-12-31] MEDS: Aspirin Chewable 81 MG TAB PO SCH (09:17)
[2018-12-31] MEDS: Enoxaparin Sodium 40 MG/0.4 ML SYRINGE SC SCH (09:18)
[2018-12-31] MEDS: guaiFENesin ER 600 MG TAB PO SCH ×2 (09:18→21:23)
[2018-12-31] MEDS: Fish Oil 1,000 MG CAP PO SCH (09:18)
[2018-12-31] MEDS: Lisinopril 20 MG TAB PO SCH (09:18)
--- NOTE | 2018-12-31 09:24 | EKG ---
Test Reason : Blood Pressure : / mmHG Vent. Rate : 060 BPM Atrial Rate : 060 BPM P-R Int : 208 ms QRS Dur : 086 ms QT Int : 448 ms P-R-T Axes : 044 087 017 degrees QTc Int : 448 ms Normal sinus rhythm Possible Left atrial enlargement Cannot rule out Anterior infarct , age undetermined Abnormal ECG When compared with ECG of 17-AUG-2009 20:30, QT has lengthened Confirmed by DR. Moose CONNELL ([id number]) on 12/31/2018 9:23:49 AM Referred By: JANA IBARRA Confirmed By:DR. Moose CONNELL
--- NOTE | 2018-12-31 10:14 | PQF ---
VICTORIA PORTER, JANA *r [id number] [facility]- B06 [id number] CLINICAL DOCUMENTATION IMPROVEMENT CLARIFICATION FORM: ICD-10 Updated PLEASE DO AN ADDENDUM TO THE PROGRESS NOTE WITH ANY DOCUMENTATION UPDATES OR ADDITIONS AND CARRY THROUGH TO DC SUMMARY. THANK YOU. DATE: 12/31/2018 ATTN: DR. Nickolas IBARRA/ DR. Anant HORN Please exercise your independent, professional judgment in responding to the clarification form. Clinical indicators are provided on the bottom of this form for your review. Please check appropriate box(s): [ x ] Acute Respiratory Failure: [ x ] with Hypoxia [ ] with Hypercapnia [ ] Acute Respiratory Failure due to: (etiology) ____suspected HFpEF exacerbation [ ] Other diagnosis [ ] Unable to determine In addition, please specify: Present on Admission (POA): [ ] Yes [x ] No [ ] Unable to determine For continuity of documentation, please document condition throughout progress notes and discharge summary. Thank You. CLINICAL INDICATORS - SIGNS / SYMPTOMS / LABS EVENT NOTE 12/30 (GABBY) : RESIDENTS PAGED FOR CONCERN OF WORSENING RESP DISTRESS. EXAM REVEALED CRACKLES MIDWAY UP BL LUNG TORRES AND 96% ON 4L NC. VS OTHERWISE STABLE 40MG IV LASIX GIVEN WITH MINIMAL IMPROVEMENT. WILL TRANSFER DOWN TO [facility] FOR BIPAP AND MONITOR CLOSELY OVERNIGHT. NO CHEST PAIN OR TACHYCARDIA AT THIS TIME.. IF PERSISTENT OR LITTLE IMPROVEMENT ON BIPAP, WILL CONSIDER CTA. PROGRESS NOTE 12/30 (STACEY) : PATIENT HAS MOVED TO THE [facility] OVERNIGHT AFTER HE WAS NOTED TO DESAT TO THE 80'S AND REQUIRED BIPAP TO MAINTAIN ADEQUATE SATS. WAS TAKEN OFF OF BIPAP AND MAINTAINING SATS BETWEEN 92-96 % ON 5 L NC. S/P 60MG IV LASIX OVERNIGHT.. PATIENT ENDORSES PERSISTENT SOB. PROGRESS NOTE 12/31 (STACEY) : PT REMAINED FAIRLY STABLE ON NC YESTERDAY B/T 2-5 L. RISK FACTORS S/P L BKA (12/20) SEPSIS (RESOLVED) B PLEURAL EFFUSIONS TREATMENTS: TRX TO [facility] FOR BIPAP (12/30) DIURESIS ( LASIX 12/30- PRESENT) SUPPLEMENTAL O2 (5L NC 12/30- PRESENT) THANK YOU! ABI (This form is maintained as a part of the permanent medical record) 2014 [employer], [employer]. All Rights Reserved Abi Frank RN, BSN [email or web address] Office: [phone] [facility] MED[facility] CENTERLuis
--- NOTE | 2018-12-31 12:30 | PRG ---
DATE OF SERVICE: 12/31/2018 SUBJECTIVE: Mr. Stacy looks and feels fine this morning. He feels better as far as his breathing is concerned after a dose of IV Lasix. His hyponatremia is being rather stubborn, but I still believe that he is hypervolemic and with continued diuresis, we should see improvement. In the event, he is asymptomatic and clinically improved. He is okay for transfer to the regular medical floor. Job ID: [id number]
[2018-12-31] MEDS: traMADol HCl 50 MG TAB PO PRN (13:18)
[2018-12-31] MEDS ORDERED: hydrOXYzine 10 MG TAB PO PRN (17:07)
[2018-12-31] MEDS: Melatonin 3 MG TAB PO PRN (21:45)
[2019-01-01] MEDS: Furosemide 40 MG/4 ML VIAL SLOW IVP SCH ×2 (05:17→17:44)
[2019-01-01 05:31] LABS: Anion Gap 13 mmol/L (10-20); BUN (Urea Nitrogen) 25 mg/dL (8.4-25.7); Calc. Creatinine Clearance 45 mL/min (70-130); Calcium 8.2 mg/dL (7.8-10.44); Carbon Dioxide 21 mmol/L (23-31); Chloride 91 mmol/L (98-107); Estimated GFR-MDRD 35; Potassium 4.4 mmol/L (3.5-5.1); Sodium 121 mmol/L (136-145)
[2019-01-01 05:36] LABS: Glucose 59 mg/dL (80-115)
--- NOTE | 2019-01-01 05:44 | PDOC.FM ---
- Subjective Subjective: NAEO. Patient states his SOB is continuing to improve. Main complaint is left leg pain since his fall yesterday. Says it is a constant, throbbing pain. Also endorses a constant RLQ pain that started yesterday. - Objective MAR Reviewed: Yes Vital Signs & Weight: Vital Signs (12 hours) Temp Pulse Resp BP Pulse Ox 01/01/19 04:12 97.4 F L 63 18 137/77 97 01/01/19 00:05 97.5 F L 58 L 18 96/59 L 98 12/31/18 21:23 100 12/31/18 20:22 97.4 F L 53 L 18 127/82 100 Weight Admit Weight 80.74 kg Weight 80.74 kg Most Recent Monitor Data Heart Rate from ECG 51 NIBP 114/64 NIBP BP-Mean 80 Respiration from ECG 12 SpO2 97 I&O: 12/30/18 12/31/18 01/01/19 06:59 06:59 06:59 Intake Total 700 1340 380 Output Total 575 1815 Balance 125 -475 380 Result Diagrams: 12/30/18 09:18 01/01/19 04:41 Phys Exam - Physical Examination Constitutional: NAD (diffuse end expiratory wheezing and rhonchi) HEENT: moist MMs, sclera anicteric Neck: supple, full ROM Respiratory: wheezing present end expiratory rhonchi also noted, robbin in upper lung qiu; decreased breath sounds in B/L bases Cardiovascular: RRR, no significant murmur Gastrointestinal: positive bowel sounds mild distention w/ TTP in RLQ Musculoskeletal: edema present s/p L BKA w/ pitting edema in R ankle Neurological: non-focal Psychiatric: normal affect, A&O x 3 Skin: no rash, normal turgor Deviation from normal: bruising noted in RLQ Dx/Plan (1) YESSICA (acute kidney injury) Code(s): N17.9 - ACUTE KIDNEY FAILURE, UNSPECIFIED Status: Resolved (2) CAD (coronary artery disease) Code(s): I25.10 - ATHSCL HEART DISEASE OF [place] CORONARY ARTERY W/O ANG PCTRS Status: Chronic (3) CKD (chronic kidney disease), stage III Code(s): N18.3 - CHRONIC KIDNEY DISEASE, STAGE 3 (MODERATE) Status: Chronic (4) Diabetes Code(s): E11.9 - TYPE 2 DIABETES MELLITUS WITHOUT COMPLICATIONS Status: Chronic Qualifiers: Diabetes mellitus type: type 2 Diabetes mellitus complication status: with kidney complications Diabetes mellitus complication detail: with chronic kidney disease Chronic kidney disease stage: stage 3 (moderate) (5) Dry gangrene Code(s): I96 - GANGRENE, NOT ELSEWHERE CLASSIFIED Status: Resolved (6) HTN (hypertension) Code(s): I10 - ESSENTIAL (PRIMARY) HYPERTENSION Status: Chronic (7) Hyponatremia Code(s): E87.1 - HYPO-OSMOLALITY AND HYPONATREMIA Status: Chronic (8) Osteomyelitis Code(s): M86.9 - OSTEOMYELITIS, UNSPECIFIED Status: Ruled-out (9) S/P CABG (coronary artery bypass graft) Code(s): Z95.1 - PRESENCE OF AORTOCORONARY BYPASS GRAFT Status: Chronic (10) Sepsis Code(s): A41.9 - SEPSIS, UNSPECIFIED ORGANISM Status: Resolved - Plan Plan: 63YOM w/ a PMH of poorly controlled DMII who presented to the ED & was found to be septic 2/2 left foot dry gangrene. Pulmonary edema 2/2 suspected CHF - Patient remained stable on overnight between 4-5L. - Echo on 12/30 showed an EF of 50-55% w/ no noted evidence of diastolic dysfunction. CTA negative for a PE. Fluid retention could therefore be 2/2 decreased renal function. TSH WNLs. - Will continue to get QD weights and strict I&Os & fluid restrict to 2L/day. Hyponatremia - Na down to 121 this AM. Patient remains asymptomatic. - Labs from 12/30 showed a low serum and urine osmolality w/ a high urine Na of 54. Serum uric acid & TSH also WNLs making SIADH & hypothyroidism less likely causes. - Will continue diuresis as tolerated as most likely cause at this point is still hypervolemia from an acute CHF exacerbation. YESSICA on CKD3 - Patient's Cr and eGFR are just below baseline range this AM after 2 days if IV lasix BID. - However, patient still requiring supplemental O2 2/2 pulmonary edeam. - Will continue to monitor eGFR closely & consider halting &/or descalating diuresis accordingly. Anemia - Patient likely has chronic normocytic anemia 2/2 CKD as Hgb on presentation was 9.9. Iron studies significant for iron deficiency as well. - Patient is s/p 1 unit of PRBCs since admission. Hgb stable at ~8 for last several days. - No active bleeding from surgical site per gen surg; however, FOBT from yesterday was + which could explain periodic dips in Hgb. Rectal exam unremarkable. Will continue PO ferrous sulfate & instruct patient to follow-up at our clinic for a repeat scope to evaluate for source of bleeding since he is HD stable. Will continue GI PPx with protonix. - Will check CBC only if patient becomes symptomatic. T2DM - A1c 12.1 on 11/12 but patient has been hypoglycemic the last several days even w/o lantus and SSI. Most likely 2/2 poor insulin metabolism 2/2 CKD. - Will continue ACHS Accuchecks - Will encourage eating meals with snacks in between & continue monitoring BG closely. CAD s/p CABG - Aware, will continue home meds. HTN - Aware, patients BP has actually been low/normal over the last 24 hours. Will continue home meds at current doses with exception of coreg 2/2 bradycardia into the 50s. Sepsis 2/2 dry gangrene of L 1st toe s/p left BKA - tachycardic & febrile w/ leukocytosis on admission. Failed outpatient augmentin. Foot XR & MRI negative for osteo. - Patient is POD #12 s/p left BKA. Will start on tylenol#3 & tramadol PRN for pain control. Will also start on KAYLEN gabapentin. - Referral to inpatient rehab placed 4 days ago. Patient cleared for d/c from surgical standpoint, just waiting on acceptance to rehab. IVFs: SL Abx: none VTE PPx: lovenox GI PPx: protonix Diet: CC, HH Dispo: POD #12 s/p BKA, moved back to floor yesterday. Will continue diuresis as tolerated by patient. Will follow-up w/ CM regarding placement and consider stable to transfer once off of supplemental O2.
[2019-01-01] MEDS ORDERED: Carvedilol 6.25 MG TAB PO SCH (05:45)
[2019-01-01] MEDS: Acetaminophen 325 MG TAB PO PRN (07:26)
[2019-01-01] MEDS: traMADol HCl 50 MG TAB PO PRN (07:27)
[2019-01-01] MEDS: Ondansetron PF 4 MG/2 ML Vial IVP PRN ×3 (07:27→20:29)
[2019-01-01] MEDS ORDERED: Acetaminophen/Codeine 30-300mg Tablet PO PRN (08:45)
[2019-01-01] MEDS ORDERED: traMADol HCl 50 MG TAB PO PRN ×2 (08:48→11:36)
[2019-01-01] MEDS ORDERED: Gabapentin 300 MG CAP PO SCH (09:00)
[2019-01-01] MEDS: Atorvastatin Calcium 40 MG TAB PO SCH (09:47)
[2019-01-01] MEDS: guaiFENesin ER 600 MG TAB PO SCH ×2 (09:47→20:29)
[2019-01-01] MEDS: Amlodipine 10 MG TAB PO SCH (09:47)
[2019-01-01] MEDS: Fish Oil 1,000 MG CAP PO SCH (09:47)
[2019-01-01] MEDS: Aspirin Chewable 81 MG TAB PO SCH (09:47)
[2019-01-01] MEDS: Lisinopril 20 MG TAB PO SCH (09:53)
[2019-01-01] MEDS: Ferrous Sulfate 325 MG TAB PO SCH ×2 (10:02→17:44)
[2019-01-01] MEDS: Enoxaparin Sodium 40 MG/0.4 ML SYRINGE SC SCH (10:03)
[2019-01-01] MEDS ORDERED: Promethazine HCl 25 MG/ML VIAL IM/IV PRN (10:20)
[2019-01-01] MEDS ORDERED: Morphine 4 MG/ML VIAL SLOW IVP PRN ×2 (10:20→12:04)
[2019-01-01] MEDS ORDERED: Morphine 4 MG/ML VIAL SLOW IVP SCH (10:30)
[2019-01-01] MEDS ORDERED: Furosemide 40 MG/4 ML VIAL SLOW IVP SCH (11:30)
[2019-01-01] MEDS ORDERED: Naloxone HCl 0.4 mg/ml Vial ONE (11:36)
--- NOTE | 2019-01-01 12:35 | PRG ---
DATE OF SERVICE: 01/01/2019 Mr. Stacy is having a great deal of pain this morning from his surgical stump. We will attempt to adjust his pain medications, although nausea has been a limiting factor for use of narcotics. His lungs are clear without rales or wheezes. Breath sounds are diminished. Sodium is still hovering in the low 120s despite what should be adequate treatment for his hypervolemic state. We will also fluid restrict as well as we are already salt restricting. Continue to monitor. Job ID: [id number]
--- NOTE | 2019-01-01 13:23 | RAD ---
EXAM: CHEST ONE VIEW: History: Shortness of breath, chest pain, declining oxygen saturation. FINDINGS: Cardiomegaly with fairly extensive bilateral interstitial and alveolar edema and bibasilar parenchyma l changes and bilateral pleural effusions. Little changed from prior study of 12-30-17. IMPRESSION: Cardiomegaly with overall stable appearing vascular congestion and interstitial and alveolar opacitie s and pleural changes, greater in the left base. Continued short term follow up. POS: TPC
[2019-01-01 16:25] LABS: Anion Gap 12 mmol/L (10-20); BUN (Urea Nitrogen) 26 mg/dL (8.4-25.7); Calc. Creatinine Clearance 51 mL/min (70-130); Calcium 8.4 mg/dL (7.8-10.44); Carbon Dioxide 22 mmol/L (23-31); Chloride 91 mmol/L (98-107); Estimated GFR-MDRD 35; Glucose 62 mg/dL (80-115); Potassium 4.7 mmol/L (3.5-5.1); Sodium 120 mmol/L (136-145)
[2019-01-01] MEDS ORDERED: Carvedilol 25 MG TAB PO SCH (21:00)
[2019-01-02] MEDS: Furosemide 40 MG/4 ML VIAL SLOW IVP SCH ×2 (06:33→14:58)
[2019-01-02] MEDS ORDERED: Acetaminophen 325 MG TAB PO PRN (06:46)
[2019-01-02] MEDS ORDERED: traMADol HCl 50 MG TAB PO PRN (06:49)
--- NOTE | 2019-01-02 06:52 | PDOC.FM ---
- Subjective Subjective: NAEO. Patient was titrated down to 2L NC overnight and maintained adequate O2 sats. Reports improved SOB on exam this AM. Says he is still having pain. Denies any N/V or chest pain. - Objective MAR Reviewed: Yes Vital Signs & Weight: Vital Signs (12 hours) Temp Pulse Resp BP Pulse Ox 01/02/19 03:55 98.7 F 76 18 148/75 H 95 01/02/19 00:07 67 18 01/02/19 00:00 97.3 F L 68 15 119/66 95 01/01/19 20:40 98 F 66 16 136/77 94 L 01/01/19 19:05 94 L Weight Admit Weight 80.74 kg Weight 89.556 kg Most Recent Monitor Data Heart Rate from ECG 51 NIBP 114/64 NIBP BP-Mean 80 Respiration from ECG 12 SpO2 97 I&O: 12/31/18 01/01/19 01/02/19 06:59 06:59 06:59 Intake Total 1340 890 750 Output Total 1058 218 1838 Balance -475 165 -1475 Result Diagrams: 12/30/18 09:18 01/02/19 06:35 Phys Exam - Physical Examination Constitutional: NAD HEENT: moist MMs, sclera anicteric Neck: supple, full ROM Respiratory: wheezing present diffuse end expiratory wheezing and inspiratory rhonchi in upper lobes Cardiovascular: RRR, no significant murmur Gastrointestinal: non-tender, positive bowel sounds Musculoskeletal: edema present Neurological: non-focal s/p L BKA Psychiatric: normal affect, A&O x 3 Skin: no rash, normal turgor Dx/Plan (1) Acute exacerbation of CHF (congestive heart failure) Code(s): I50.9 - HEART FAILURE, UNSPECIFIED Status: Suspected Qualifiers: Heart failure type: diastolic Qualified Code(s): I50.33 - Acute on chronic diastolic (congestive) heart failure (2) Hyponatremia Code(s): E87.1 - HYPO-OSMOLALITY AND HYPONATREMIA Status: Acute (3) YESSICA (acute kidney injury) Code(s): N17.9 - ACUTE KIDNEY FAILURE, UNSPECIFIED Status: Resolved (4) CAD (coronary artery disease) Code(s): I25.10 - ATHSCL HEART DISEASE OF [place] CORONARY ARTERY W/O ANG PCTRS Status: Chronic (5) CKD (chronic kidney disease), stage III Code(s): N18.3 - CHRONIC KIDNEY DISEASE, STAGE 3 (MODERATE) Status: Chronic (6) Diabetes Code(s): E11.9 - TYPE 2 DIABETES MELLITUS WITHOUT COMPLICATIONS Status: Chronic Qualifiers: Diabetes mellitus type: type 2 Diabetes mellitus complication status: with kidney complications Diabetes mellitus complication detail: with chronic kidney disease Chronic kidney disease stage: stage 3 (moderate) (7) Dry gangrene Code(s): I96 - GANGRENE, NOT ELSEWHERE CLASSIFIED Status: Resolved (8) HTN (hypertension) Code(s): I10 - ESSENTIAL (PRIMARY) HYPERTENSION Status: Chronic (9) Osteomyelitis Code(s): M86.9 - OSTEOMYELITIS, UNSPECIFIED Status: Ruled-out (10) S/P CABG (coronary artery bypass graft) Code(s): Z95.1 - PRESENCE OF AORTOCORONARY BYPASS GRAFT Status: Chronic (11) Sepsis Code(s): A41.9 - SEPSIS, UNSPECIFIED ORGANISM Status: Resolved (12) (HFpEF) heart failure with preserved ejection fraction Code(s): I50.30 - UNSPECIFIED DIASTOLIC (CONGESTIVE) HEART FAILURE Status: Suspected Qualifiers: Heart failure chronicity: chronic Qualified Code(s): I50.32 - Chronic diastolic (congestive) heart failure - Plan Plan: 63YOM w/ a PMH of poorly controlled DMII who presented to the ED & was found to be septic 2/2 left foot dry gangrene. Suspected acute on chronic CHF exacerbation - Patient remained stable on 2L NC overnight and was maintaining sat between 92- 94%. This was after patient had a -1475 balance over last 24 hours w/ 2225mL of UO. - Echo on 12/30 showed an EF of 50-55% w/ no noted evidence of diastolic dysfunction. CTA negative for a PE. Fluid retention could therefore be 2/2 decreased renal function. TSH WNLs. - Will continue to get QD weights and strict I&Os & fluid restrict to 1500L/ day. Will continue to diurese as tolerated by patient. Hyponatremia - Na down to 120 yesterday afternoon. Patient remains asymptomatic. Repeat pending for this AM. Still suspect most likely 2/2 volume overload as repeat CXR showed persistent B/L pleural effusions & patient still requiring O2 to maintain sats. - Labs from 2/4 showed a low serum and urine osmolality w/ a high urine Na of 54. Serum uric acid & TSH also WNLs making SIADH & hypothyroidism less likely causes. - Will continue diuresis as tolerated. YESSICA on CKD3 - Patient's Cr and eGFR are just below baseline range this AM after 2 days if IV lasix BID. - However, patient still requiring supplemental O2 2/2 pulmonary edema. - Will therefore continue to monitor eGFR closely but continue diuresis to continue to get patient back to baseline respiratory status on RA. Anemia - Patient likely has chronic normocytic anemia 2/2 CKD as Hgb on presentation was 9.9. Iron studies significant for iron deficiency as well. - Patient is s/p 1 unit of PRBCs since admission. Hgb stable at ~8 for last several days. - No active bleeding from surgical site per gen surg; however, FOBT from yesterday was + which could explain periodic dips in Hgb. Rectal exam unremarkable. Will continue PO ferrous sulfate & instruct patient to follow-up at our clinic for a repeat scope to evaluate for source of bleeding since he is HD stable. Will continue GI PPx with protonix. - Will check CBC only if patient becomes symptomatic. T2DM - A1c 12.1 on 11/12 but patient has been hypoglycemic the last several days even w/o lantus and SSI. Most likely 2/2 poor insulin metabolism 2/2 CKD. - Will continue ACHS Accuchecks. - Will encourage eating meals with snacks in between & continue monitoring BG closely. CAD s/p CABG - Aware, will continue home meds. HTN - Aware, patients BP has actually been low/normal over the last 24 hours. Will continue home meds at current doses with exception of coreg 2/2 bradycardia into the 50s. Sepsis 2/2 dry gangrene of L 1st toe s/p left BKA - tachycardic & febrile w/ leukocytosis on admission. Failed outpatient augmentin. Foot XR & MRI negative for osteo. - Patient is POD #13 s/p left BKA. Will start on tylenol#3 & tramadol PRN for pain control. Will also start on KAYLEN gabapentin. - Referral to inpatient rehab placed 4 days ago. Patient cleared for d/c from surgical standpoint, just waiting on acceptance to rehab. IVFs: SL Abx: none VTE PPx: lovenox GI PPx: protonix Diet: CC, HH Dispo: POD #13 s/p BKA, moved back to floor yesterday. Will continue diuresis as tolerated by patient. Patient accepted to rehab yesterday but wanted to monitor longer due to severe hyponatremia. Anticipate likely d/c to rehab today as long as patient's Na is above 125 today.
[2019-01-02 07:14] LABS: Anion Gap 14 mmol/L (10-20); BUN (Urea Nitrogen) 26 mg/dL (8.4-25.7); Calc. Creatinine Clearance 47 mL/min (70-130); Calcium 8.7 mg/dL (7.8-10.44); Carbon Dioxide 24 mmol/L (23-31); Chloride 90 mmol/L (98-107); Estimated GFR-MDRD 32; Potassium 4.7 mmol/L (3.5-5.1); Sodium 123 mmol/L (136-145)
[2019-01-02 07:28] LABS: Glucose 55 mg/dL (80-115)
[2019-01-02] MEDS: guaiFENesin ER 600 MG TAB PO SCH ×2 (08:40→21:22)
[2019-01-02] MEDS: Amlodipine 10 MG TAB PO SCH (08:40)
[2019-01-02] MEDS: Aspirin Chewable 81 MG TAB PO SCH (08:40)
[2019-01-02] MEDS: Fish Oil 1,000 MG CAP PO SCH (08:41)
[2019-01-02] MEDS: Gabapentin 300 MG CAP PO SCH (08:41)
[2019-01-02] MEDS: Lisinopril 20 MG TAB PO SCH (08:41)
[2019-01-02] MEDS: Atorvastatin Calcium 40 MG TAB PO SCH (08:41)
[2019-01-02] MEDS: Carvedilol 6.25 MG TAB PO SCH ×2 (08:42→21:22)
[2019-01-02] MEDS: Ferrous Sulfate 325 MG TAB PO SCH ×2 (08:43→17:24)
[2019-01-02] MEDS: Enoxaparin Sodium 40 MG/0.4 ML SYRINGE SC SCH (09:51)
[2019-01-02 10:49] LABS: Actual Bicarbonate (HCO3a) 27.2 mEq/L (22-28); Base Excess (BEa) 1.9 mEq/L (-2.0 to +3.0); CO2 Tension 46.1 mmHg (35.0-45.0); Calcium, Ionized 1.09 mmol/L (1.12-1.30); Carboxyhemoglobin (COHb) 1.7 gm% (0.0-3.0); Hemoglobin (Hb) 7.3 g/dL (14.0-18.0); O2 Tension (PaO2) 62.8 mmHg (> 80.0); Potassium - ABG Lab 4.36 mmol/L (3.70-5.30); pH, Arterial 7.39 (7.35-7.45)
[2019-01-02 10:50] LABS: ALV-art Gradient 79.215 (0-20); Puncture Site RRA
--- NOTE | 2019-01-02 11:53 | PRG ---
DATE OF SERVICE: 01/02/2019 Mr. Stacy had a normal breakfast this morning. He was sitting up in bed, feeding himself. When we examined him a couple of hours later, he is quite somnolent, even to sternal rub. We checked a fingerstick glucose of 94. We checked an ABG, which showed a pCO2 of 46, PO2 of 63, and pH of 7.39. His sodium is actually improved from 120 to 123 and kidney function improving with BUN of 26 and creatinine of 2.09. We are still having problems with occasional hypoglycemia despite the fact he has been off insulin for three days. We will continue to monitor. Job ID: [id number]
--- NOTE | 2019-01-02 13:41 | PDOC.GSPN ---
Surgery Progress Note: Subj - Subjective Narrative: Came to see patient today because discharge to rehabilitation anticipated in near future. He has had multiple medical issues since I last saw him including fluid overload CHF exacerbation and hyponatremia. This all seems to be improving , but the patient states that while he was in IMCU he was "dropped" by the physical therapist and landed on his stump. He states that ever since then he has had increased swelling and pain. The stump is more swollen but a good amount of this appears to be subcutaneous edema. The skin also has more reddish tinge to it although this does not clearly elida. It is unclear how much is bruising there is no expressible drainage from the incision which appears to be healing well. I'm going to get a CT to make sure he doesn't have a hematoma or other fluid collection that could be contributing to swelling and pain. I think it is unlikely that he has an abscess or infection, but this is within the differential. Antibiotics were discontinued on the November. Surgery Progress Note: Obj - Vital signs Vital signs: Vital Signs - Most Recent Temp Pulse Resp BP Pulse Ox 98.7 F 70 22 H 112/64 96 01/02/19 10:56 01/02/19 10:56 01/02/19 10:56 01/02/19 10:56 01/02/19 10:56 Surgery Progress Note: Results - Labs Result Diagrams: 12/30/18 09:18 01/02/19 06:35 Lab results: Laboratory Results - last 24 hr 01/02/19 01/02/19 01/02/19 06:12 06:35 10:37 Specimen Type Puncture Site Bicarbonate Actual ABG pH ABG pCO2 ABG pO2 ABG O2 Sat Calc/Joce ABG O2 Content ABG Base Excess ABG Hematocrit ABG Hemoglobin ABG Oxyhemoglobin ABG Carboxyhemoglobin ABG Methemoglobin ABG Deoxyhemoglobin Osmin Test A-a O2 Gradient Ionized Calcium Mode of Support Inspired O2 Sodium 123 L Potassium 4.7 Chloride 90 L Carbon Dioxide 24 Anion Gap 14 BUN 26 H Creatinine 2.09 H Estimated GFR (MDRD) 32 Glucose 55 L* POC Glucose 62 L 94 Calcium 8.7 01/02/19 10:41 Specimen Type ARTERIAL Puncture Site RRA Bicarbonate Actual 27.2 ABG pH 7.39 ABG pCO2 46.1 H ABG pO2 62.8 ABG O2 Sat Calc/Joce 91.9 L ABG O2 Content 9.3 L ABG Base Excess 1.9 ABG Hematocrit 21.0 L ABG Hemoglobin 7.3 L ABG Oxyhemoglobin 90.1 L ABG Carboxyhemoglobin 1.7 ABG Methemoglobin 0.30 ABG Deoxyhemoglobin 7.9 H Osmin Test POSITIVE A-a O2 Gradient 79.215 H Ionized Calcium 1.09 L Mode of Support 2L NC Inspired O2 28 Sodium 120 L Potassium 4.36 Chloride 88 L Carbon Dioxide Anion Gap BUN Creatinine Estimated GFR (MDRD) Glucose POC Glucose Calcium
--- NOTE | 2019-01-02 15:38 | CT ---
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 Status post fall with left pain with the left below kn ee amputation site. FINDINGS: No acute fracture or subluxation is evident. There is some subcutaneous reticulation involving the l eft BKA site extending into the left distal thigh which may reflect lymphedema. Small amount of mixe d density fluid is seen at the level of the BKA stump site which can be seen in a postsurgical patien t and related to postoperative hemorrhage. No definite large drainable fluid collection is evident w ithin the limitations of this noncontrast exam. There are surgical travon overlying the BKA stump. There are prominent vascular calcifications seen within the soft tissues. No large joint capsular d istention is evident. IMPRESSION: 1. No acute fracture or subluxation is evident. 2. Expected complex fluid density seen at the below knee amputation site consistent with the patient 's recent postoperative state of a recent below knee amputation. A small amount of soft tissue hemat opal at the below knee amputation site is expected in a postop patient. This also could be posttrauma tic in nature. No large drainable fluid collection is grossly evident with limitations of the exam. 3. Extensive reticulation in subcutaneous fat of the left thigh and below knee amputation stump can be seen with lymphedema. A cellulitis can also produce this finding and would recommend correlation with clinical examination. A mild amount of associated lymphedema is seen within the right lower ext remity that is partially imaged. Recommend correlation of changes of any congestive heart failure or volume overload. POS: CET
[2019-01-03] MEDS: Furosemide 40 MG/4 ML VIAL SLOW IVP SCH ×2 (06:31→13:05)
--- NOTE | 2019-01-03 07:01 | PDOC.FM ---
- Subjective Subjective: Per nurse patient doing much better this AM. Patient reports no pain and improvement in SOB since yesterday. - Objective MAR Reviewed: Yes Vital Signs & Weight: Vital Signs (12 hours) Temp Pulse Resp BP BP BP BP 01/03/19 06:51 70 16 01/03/19 04:26 98.4 F 70 17 120/69 01/03/19 00:09 68 16 01/03/19 00:00 99.3 F 70 16 130/61 01/02/19 21:22 134/65 01/02/19 20:00 99.7 F H 73 18 134/65 Pulse Ox 01/03/19 06:51 96 01/03/19 04:26 92 L 01/03/19 00:09 96 01/03/19 00:00 90 L 01/02/19 21:22 01/02/19 20:00 92 L Weight Admit Weight 80.74 kg Weight 89.074 kg Most Recent Monitor Data Heart Rate from ECG 51 NIBP 114/64 NIBP BP-Mean 80 Respiration from ECG 12 SpO2 97 I&O: 01/01/19 01/02/19 01/03/19 06:59 06:59 06:59 Intake Total 771 370 2550 Output Total 725 1875 3325 Balance 081 -1668 -3792 Result Diagrams: 12/30/18 09:18 01/03/19 05:59 Phys Exam - Physical Examination Constitutional: NAD HEENT: moist MMs, sclera anicteric Neck: supple, full ROM Respiratory: no wheezing, no rales, no rhonchi, clear to auscultation bilateral Cardiovascular: RRR, no significant murmur Musculoskeletal: edema present non pitting edema in RLE Neurological: non-focal Psychiatric: normal affect Deviation from normal: sleepy on exam but easily arousable Skin: no rash, normal turgor Dx/Plan (1) Acute exacerbation of CHF (congestive heart failure) Code(s): I50.9 - HEART FAILURE, UNSPECIFIED Status: Suspected Qualifiers: Heart failure type: diastolic Qualified Code(s): I50.33 - Acute on chronic diastolic (congestive) heart failure (2) Hyponatremia Code(s): E87.1 - HYPO-OSMOLALITY AND HYPONATREMIA Status: Acute (3) YESSICA (acute kidney injury) Code(s): N17.9 - ACUTE KIDNEY FAILURE, UNSPECIFIED Status: Resolved (4) CAD (coronary artery disease) Code(s): I25.10 - ATHSCL HEART DISEASE OF [place] CORONARY ARTERY W/O ANG PCTRS Status: Chronic (5) CKD (chronic kidney disease), stage III Code(s): N18.3 - CHRONIC KIDNEY DISEASE, STAGE 3 (MODERATE) Status: Chronic (6) Diabetes Code(s): E11.9 - TYPE 2 DIABETES MELLITUS WITHOUT COMPLICATIONS Status: Chronic Qualifiers: Diabetes mellitus type: type 2 Diabetes mellitus complication status: with kidney complications Diabetes mellitus complication detail: with chronic kidney disease Chronic kidney disease stage: stage 3 (moderate) (7) Dry gangrene Code(s): I96 - GANGRENE, NOT ELSEWHERE CLASSIFIED Status: Resolved (8) HTN (hypertension) Code(s): I10 - ESSENTIAL (PRIMARY) HYPERTENSION Status: Chronic (9) Osteomyelitis Code(s): M86.9 - OSTEOMYELITIS, UNSPECIFIED Status: Ruled-out (10) S/P CABG (coronary artery bypass graft) Code(s): Z95.1 - PRESENCE OF AORTOCORONARY BYPASS GRAFT Status: Chronic (11) Sepsis Code(s): A41.9 - SEPSIS, UNSPECIFIED ORGANISM Status: Resolved (12) (HFpEF) heart failure with preserved ejection fraction Code(s): I50.30 - UNSPECIFIED DIASTOLIC (CONGESTIVE) HEART FAILURE Status: Suspected Qualifiers: Heart failure chronicity: chronic Qualified Code(s): I50.32 - Chronic diastolic (congestive) heart failure - Plan Plan: 63YOM w/ a PMH of poorly controlled DMII who presented to the ED & was found to be septic 2/2 left foot dry gangrene. Suspected acute on chronic CHF exacerbation - Patient remained stable on 2L NC overnight and was maintaining sat between 92- 94%. This was after patient had a -1475 balance over last 24 hours w/ 2225mL of UO. - Echo on 12/30 showed an EF of 50-55% w/ no noted evidence of diastolic dysfunction. CTA negative for a PE. Fluid retention could therefore be 2/2 decreased renal function. TSH WNLs. - Will continue to get QD weights and strict I&Os & fluid restrict to 1500L/ day. Will continue to diurese as tolerated by patient. Hyponatremia - Na stable at 122 today. Patient remains asymptomatic. Unsure etiology as patient diuresed over 3L 7 Na still unchanged. - Labs from 12/30 showed a low serum and urine osmolality w/ a high urine Na of 54. Serum uric acid & TSH also WNLs making SIADH & hypothyroidism less likely causes. YESSICA on CKD3 - Patient's Cr and eGFR are just below baseline range this AM after 3 days if IV lasix BID. - However, patient still requiring supplemental O2 2/2 pulmonary edema. - Will therefore continue to monitor eGFR closely but continue diuresis to continue to get patient back to baseline respiratory status on RA. Anemia - Patient likely has chronic normocytic anemia 2/2 CKD as Hgb on presentation was 9.9. Iron studies significant for iron deficiency as well. - Patient is s/p 1 unit of PRBCs since admission. Hgb stable at ~8 for last several days. - No active bleeding from surgical site per gen surg; however, FOBT from yesterday was + which could explain periodic dips in Hgb. Rectal exam unremarkable. Will continue PO ferrous sulfate & instruct patient to follow-up at our clinic for a repeat scope to evaluate for source of bleeding since he is HD stable. Will continue GI PPx with protonix. - Will check CBC only if patient becomes symptomatic. T2DM - A1c 12.1 on 11/12 but patient has been hypoglycemic the last several days even w/o lantus and SSI. Most likely 2/2 poor insulin metabolism 2/2 CKD. - Will continue ACHS Accuchecks. - Will encourage eating meals with snacks in between & continue monitoring BG closely. Will resume insulin PRN. Goal BG levels in hospital between 140-180. CAD s/p CABG - Aware, will continue home meds. HTN - Aware, patients BP has actually been low/normal over the last 24 hours. Will continue home meds at current doses with exception of coreg 2/2 bradycardia into the 50s. Sepsis 2/2 dry gangrene of L 1st toe s/p left BKA - tachycardic & febrile w/ leukocytosis on admission. Failed outpatient augmentin. Foot XR & MRI negative for osteo. - Patient is POD #14 s/p left BKA. Will IV morphine, tylenol, & tramadol PRN for pain control. Will hold KAYLEN gabapentin for today as may be contributing to increased drowsiness. - Patient accepted to rehab. Waiting on medical issues to improve before d/c, namely hyponatremia. IVFs: SL Abx: none VTE PPx: lovenox GI PPx: protonix Diet: WES NANCE Dispo: POD #14 s/p BKA, moved back to floor yesterday. Will continue diuresis as tolerated by patient. Patient accepted to rehab 2 days ago but want to monitor longer due to severe hyponatremia. Will d/c to rehab as long as patient' s Na is at or above 130.
[2019-01-03 07:04] LABS: Anion Gap 12 mmol/L (10-20); BUN (Urea Nitrogen) 26 mg/dL (8.4-25.7); Calc. Creatinine Clearance 45 mL/min (70-130); Calcium 8.3 mg/dL (7.8-10.44); Carbon Dioxide 25 mmol/L (23-31); Chloride 89 mmol/L (98-107); Estimated GFR-MDRD 31; Glucose 138 mg/dL (80-115); Potassium 4.2 mmol/L (3.5-5.1); Sodium 122 mmol/L (136-145)
[2019-01-03] MEDS: Amlodipine 10 MG TAB PO SCH (08:06)
[2019-01-03] MEDS: Atorvastatin Calcium 40 MG TAB PO SCH (08:06)
[2019-01-03] MEDS: Fish Oil 1,000 MG CAP PO SCH (08:06)
[2019-01-03] MEDS: Aspirin Chewable 81 MG TAB PO SCH (08:06)
[2019-01-03] MEDS: Ferrous Sulfate 325 MG TAB PO SCH ×2 (08:06→17:59)
[2019-01-03] MEDS: Lisinopril 20 MG TAB PO SCH (08:07)
[2019-01-03] MEDS: Gabapentin 300 MG CAP PO SCH ×2 (08:07→08:15)
[2019-01-03] MEDS: guaiFENesin ER 600 MG TAB PO SCH ×2 (08:07→20:11)
[2019-01-03] MEDS: Enoxaparin Sodium 40 MG/0.4 ML SYRINGE SC SCH (08:11)
[2019-01-03] MEDS: Carvedilol 6.25 MG TAB PO SCH ×2 (08:11→20:11)
[2019-01-03] MEDS ORDERED: Sodium Chloride 0.9% 500 ML IV SCH (10:15)
--- NOTE | 2019-01-03 11:54 | PRG ---
DATE OF SERVICE: 01/03/2019 Mr. Stacy looks much better this morning. He is no longer short of breath or quite as somnolent as he was yesterday. His sodium level, however, is still hovering around 122. I would suggest a saline bolus and recheck it about an hour later to see if we can get his sodium to come up to above 125. Job ID: [id number]
[2019-01-03 13:36] LABS: Anion Gap 9 mmol/L (10-20); BUN (Urea Nitrogen) 25 mg/dL (8.4-25.7); Calc. Creatinine Clearance 46 mL/min (70-130); Calcium 8.2 mg/dL (7.8-10.44); Carbon Dioxide 28 mmol/L (23-31); Chloride 88 mmol/L (98-107); Estimated GFR-MDRD 32; Glucose 158 mg/dL (80-115); Potassium 4.3 mmol/L (3.5-5.1); Sodium 121 mmol/L (136-145)
--- NOTE | 2019-01-03 14:14 | PDOC.GSPN ---
Surgery Progress Note: Subj - Subjective Narrative: Patient feels better today. He is sleepy but his leg is not hurting like it was. CT showed a small postoperative hematoma or fluid collection which is not drainable. He had a lot of edema in the soft tissues but no abscess. His leg actually looks better today. It is less swollen and red. His sodium is still low. Stable for rehabilitation from a surgical standpoint. If he is still here on Sunday I will see him then. If his leg starts to look worse Dr. Irwin is covering for the weekend. Surgery Progress Note: Obj - Vital signs Vital signs: Vital Signs - Most Recent Temp Pulse Resp BP Pulse Ox 97.4 F L 72 16 107/68 92 L 01/03/19 11:38 01/03/19 13:42 01/03/19 13:42 01/03/19 11:38 01/03/19 13:42 Surgery Progress Note: Results - Labs Result Diagrams: 12/30/18 09:18 01/03/19 13:04 Lab results: Laboratory Results - last 24 hr 01/03/19 01/03/19 01/03/19 05:59 06:10 11:35 Sodium 122 L Potassium 4.2 Chloride 89 L Carbon Dioxide 25 Anion Gap 12 BUN 26 H Creatinine 2.15 H Estimated GFR (MDRD) 31 Glucose 138 H POC Glucose 168 H 177 H Calcium 8.3 01/03/19 13:04 Sodium 121 L Potassium 4.3 Chloride 88 L Carbon Dioxide 28 Anion Gap 9 L BUN 25 Creatinine 2.11 H Estimated GFR (MDRD) 32 Glucose 158 H POC Glucose Calcium 8.2
--- NOTE | 2019-01-04 05:14 | PDOC.FM ---
- Subjective Subjective: Pt denies pain, nausea, vomiting, dyspnea. He reports a BM yesterday. - Objective MAR Reviewed: Yes Vital Signs & Weight: Vital Signs (12 hours) Temp Pulse Resp BP BP Pulse Ox 01/04/19 00:17 98.1 F 69 16 110/65 93 L 01/03/19 21:58 70 16 01/03/19 20:59 98.6 F 65 20 117/64 95 01/03/19 20:11 117/64 01/03/19 20:00 95 Weight Admit Weight 80.74 kg Weight 89.074 kg Most Recent Monitor Data Heart Rate from ECG 51 NIBP 114/64 NIBP BP-Mean 80 Respiration from ECG 12 SpO2 97 I&O: 01/02/19 01/03/19 01/04/19 06:59 06:59 06:59 Intake Total 750 1174 500 Output Total 2229 3325 1100 Balance -1475 -2151 -600 Result Diagrams: 01/04/19 06:04 01/04/19 06:04 Phys Exam - Physical Examination Constitutional: NAD HEENT: moist MMs Neck: no JVD Crackles in left lung, possibly depended 3/6 systolic murmur heard at right sternal border Gastrointestinal: soft, non-tender, no distention, positive bowel sounds Musculoskeletal: no edema, pulses present Left BKA stump wrapped Neurological: non-focal, normal sensation, moves all 4 limbs Psychiatric: normal affect, A&O x 3 Skin: cap refill <2 seconds Dx/Plan (1) Anemia Code(s): D64.9 - ANEMIA, UNSPECIFIED Status: Acute (2) Hyponatremia Code(s): E87.1 - HYPO-OSMOLALITY AND HYPONATREMIA Status: Acute (3) CAD (coronary artery disease) Code(s): I25.10 - ATHSCL HEART DISEASE OF [place] CORONARY ARTERY W/O ANG PCTRS Status: Chronic (4) CKD (chronic kidney disease), stage III Code(s): N18.3 - CHRONIC KIDNEY DISEASE, STAGE 3 (MODERATE) Status: Chronic (5) Diabetes Code(s): E11.9 - TYPE 2 DIABETES MELLITUS WITHOUT COMPLICATIONS Status: Chronic Qualifiers: Diabetes mellitus type: type 2 Diabetes mellitus complication status: with kidney complications Diabetes mellitus complication detail: with chronic kidney disease Chronic kidney disease stage: stage 3 (moderate) (6) HTN (hypertension) Code(s): I10 - ESSENTIAL (PRIMARY) HYPERTENSION Status: Chronic (7) S/P CABG (coronary artery bypass graft) Code(s): Z95.1 - PRESENCE OF AORTOCORONARY BYPASS GRAFT Status: Chronic (8) Acute exacerbation of CHF (congestive heart failure) Code(s): I50.9 - HEART FAILURE, UNSPECIFIED Status: Suspected Qualifiers: Heart failure type: diastolic Qualified Code(s): I50.33 - Acute on chronic diastolic (congestive) heart failure (9) YESSICA (acute kidney injury) Code(s): N17.9 - ACUTE KIDNEY FAILURE, UNSPECIFIED Status: Resolved (10) Sepsis Code(s): A41.9 - SEPSIS, UNSPECIFIED ORGANISM Status: Resolved - Plan Plan: This is a 63 yo male with a pmh of CAD s/p cabg, HTN, DM2, CKD, POD 15 s/p BKA Suspected acute on chronic CHF -Pt stable on 2L NC overnight. Pt down 1510 ml overnight -EF on 12/30 shows 50-55% w/o diastolic dysfunction. CTA negative for PE. Consider fluid retension 2/2 poor renal function. -Diuresis with lasix BID and 1500ml fluid restriction. Continue monitoring I&Os Hyponatremia -121 yesterday, pt is asymptomatic, pending AM Na -SIADH and hypothyroidism have been ruled out -AM cortisol level pending to rule out adrenal insufficiency YESSICA on CKD3 -Cr and eGFR stable, below baseline -Continue diuresis, monitor kidney function Anemia -Chronic normocytic anemia likely 2/2 to CKD. -FOBT positive, will likely need outpt colonoscopy -Pending CBC this morning -Continue protonix DM 2 -A1c 12.1, pt's insulin has been held due to hypoglycemia, likely 2/2 renal function -Currently on no medications, blood glucose has been near goal for the past 4 days -Continue ACHS accuchecks -Encourage regular PO intake -Will continue to monitor CAD s/p cabg -Continue home medications HTN -BP is improving and we are continuing BP medications. Will continue to monitor vitals and renal function Sepsis 2/2 dry gangrene of L 1st toe s/p left BKA -Sepsis resolved -POD 15, pain management with tylenol and tramadol PRN -Pt accepted to rehab, pending resolution of hyponatremia
[2019-01-04] MEDS: Furosemide 40 MG/4 ML VIAL SLOW IVP SCH ×2 (05:40→14:52)
[2019-01-04 06:26] LABS: #Basophils 0.1 thou/uL (0.0-0.2); #Eosinphils 0.4 thou/uL (0.0-0.7); #Monocytes 0.7 thou/uL (0.11-0.59); #Neutrophils 4.2 thou/uL (1.40-6.50); %Basophils 0.8 % (0.0-1.0); %Eosinophils 5.8 % (0.0-10.0); %Lymphocytes 16.2 % (21.0-51.0); %Monocytes 10.7 % (0.0-10.0); %Neutrophils 66.5 % (42.0-75.0); Hemoglobin 7.4 g/dL (14.0-18.0); Mean Corpuscular HGB CONC 32.6 g/dL (32.0-36.0); Mean Corpuscular Hemoglobin 29.2 pg (27.0-31.0); Mean Corpuscular Volume 89.5 fL (78.0-98.0); Mean Platelet Volume 7.6 fL (7.4-10.4); Platelet Count 253 thou/uL (130-400); RBC Distribution Width 12.4 % (11.5-14.5); Red Blood Cell (RBC) Count 2.52 mill/uL (4.70-6.10); White Blood Cell (WBC) Count 6.3 thou/uL (4.8-10.8)
[2019-01-04 06:46] LABS: Anion Gap 9 mmol/L (10-20); BUN (Urea Nitrogen) 21 mg/dL (8.4-25.7); Calc. Creatinine Clearance 49 mL/min (70-130); Calcium 8.5 mg/dL (7.8-10.44); Carbon Dioxide 27 mmol/L (23-31); Chloride 89 mmol/L (98-107); Estimated GFR-MDRD 34; Glucose 118 mg/dL (80-115); Potassium 4.4 mmol/L (3.5-5.1); Sodium 121 mmol/L (136-145)
[2019-01-04] MEDS: guaiFENesin ER 600 MG TAB PO SCH ×2 (08:03→19:57)
[2019-01-04] MEDS: Fish Oil 1,000 MG CAP PO SCH (08:03)
[2019-01-04] MEDS: Atorvastatin Calcium 40 MG TAB PO SCH (08:04)
[2019-01-04] MEDS: Amlodipine 10 MG TAB PO SCH (08:04)
[2019-01-04] MEDS: Aspirin Chewable 81 MG TAB PO SCH (08:04)
[2019-01-04] MEDS: Ferrous Sulfate 325 MG TAB PO SCH ×2 (08:04→17:37)
[2019-01-04] MEDS: Lisinopril 20 MG TAB PO SCH (08:05)
[2019-01-04] MEDS: Carvedilol 6.25 MG TAB PO SCH ×2 (08:05→19:57)
[2019-01-04] MEDS: Enoxaparin Sodium 40 MG/0.4 ML SYRINGE SC SCH (08:07)
[2019-01-04] MEDS: Gabapentin 300 MG CAP PO SCH (08:40)
[2019-01-04] MEDS ORDERED: Sodium Chloride 0.9% 500 ML IV SCH (08:45)
[2019-01-04] MEDS: Sodium Chloride 1 GM TAB PO SCH ×3 (09:04→19:57)
--- NOTE | 2019-01-04 13:51 | PRG ---
DATE OF SERVICE: 01/04/2019 Mr. Stacy is presenting somewhat of a dilemma. Multiple interventions have not raised his serum sodium. We have been diuresing him for his initial hypervolemic state with heart failure. We also fluid and salt restrict him initially. His serum sodium has hovered in the low 120s despite these efforts. The bolus of saline yesterday did not seem to improve the matter at all. We will attempt this one more time today. If this is unsuccessful, I would suggest reconsult Nephrology for some input regarding his recalcitrant hyponatremia. Job ID: [id number]
[2019-01-04 16:57] LABS: Anion Gap 12 mmol/L (10-20); BUN (Urea Nitrogen) 20 mg/dL (8.4-25.7); Calc. Creatinine Clearance 49 mL/min (70-130); Calcium 8.6 mg/dL (7.8-10.44); Carbon Dioxide 26 mmol/L (23-31); Chloride 89 mmol/L (98-107); Estimated GFR-MDRD 34; Glucose 139 mg/dL (80-115); Potassium 4.4 mmol/L (3.5-5.1); Sodium 123 mmol/L (136-145)
[2019-01-05] MEDS: Furosemide 40 MG/4 ML VIAL SLOW IVP SCH ×2 (05:07→13:51)
--- NOTE | 2019-01-05 05:41 | PDOC.FM ---
- Subjective Subjective: Pt denies any pain this morning. He denies SOB, chest pain, or nausea. He states he is more awake this morning and denies seeing me yesterday. - Objective MAR Reviewed: Yes Vital Signs & Weight: Vital Signs (12 hours) Temp Pulse Resp BP BP Pulse Ox 01/05/19 04:14 97.8 F 65 20 106/64 94 L 01/05/19 00:25 98.3 F 65 20 134/77 90 L 01/04/19 22:04 62 12 92 L 01/04/19 20:22 98.4 F 63 20 128/80 92 L 01/04/19 20:00 92 L 01/04/19 19:57 128/80 Weight Admit Weight 80.74 kg Weight 89.074 kg Most Recent Monitor Data Heart Rate from ECG 51 NIBP 114/64 NIBP BP-Mean 80 Respiration from ECG 12 SpO2 97 I&O: 01/03/19 01/04/19 01/05/19 06:59 06:59 06:59 Intake Total 4636 670 9383 Output Total 3325 2500 3250 Balance -2151 -1510 -1740 Result Diagrams: 01/04/19 06:04 01/04/19 16:29 Phys Exam - Physical Examination Constitutional: NAD HEENT: moist MMs Neck: no JVD Respiratory: no wheezing, clear to auscultation bilateral Cardiovascular: RRR 3/6 systolic murmur Gastrointestinal: soft, non-tender, positive bowel sounds Musculoskeletal: no edema, pulses present Neurological: normal sensation, moves all 4 limbs Psychiatric: normal affect, A&O x 3 Skin: cap refill <2 seconds Dx/Plan (1) Anemia Code(s): D64.9 - ANEMIA, UNSPECIFIED Status: Acute (2) Hyponatremia Code(s): E87.1 - HYPO-OSMOLALITY AND HYPONATREMIA Status: Acute (3) CAD (coronary artery disease) Code(s): I25.10 - ATHSCL HEART DISEASE OF [place] CORONARY ARTERY W/O ANG PCTRS Status: Chronic (4) CKD (chronic kidney disease), stage III Code(s): N18.3 - CHRONIC KIDNEY DISEASE, STAGE 3 (MODERATE) Status: Chronic (5) Diabetes Code(s): E11.9 - TYPE 2 DIABETES MELLITUS WITHOUT COMPLICATIONS Status: Chronic Qualifiers: Diabetes mellitus type: type 2 Diabetes mellitus complication status: with kidney complications Diabetes mellitus complication detail: with chronic kidney disease Chronic kidney disease stage: stage 3 (moderate) (6) HTN (hypertension) Code(s): I10 - ESSENTIAL (PRIMARY) HYPERTENSION Status: Chronic (7) S/P CABG (coronary artery bypass graft) Code(s): Z95.1 - PRESENCE OF AORTOCORONARY BYPASS GRAFT Status: Chronic (8) Acute exacerbation of CHF (congestive heart failure) Code(s): I50.9 - HEART FAILURE, UNSPECIFIED Status: Suspected Qualifiers: Heart failure type: diastolic Qualified Code(s): I50.33 - Acute on chronic diastolic (congestive) heart failure (9) YESSICA (acute kidney injury) Code(s): N17.9 - ACUTE KIDNEY FAILURE, UNSPECIFIED Status: Resolved (10) Sepsis Code(s): A41.9 - SEPSIS, UNSPECIFIED ORGANISM Status: Resolved - Plan Plan: This is a 63 yo male with a pmh of CAD s/p cabg, HTN, DM2, CKD, POD 15 s/p BKA Suspected acute on chronic CHF -Pt Required 1L nc overnight. Pt down 1740 over 24hrs -EF on 2 shows 50-55% w/o diastolic dysfunction. CTA negative for PE. Consider fluid retension 2/2 poor renal function. -Diuresis with lasix BID and 1500ml fluid restriction. Continue monitoring I&Os Hyponatremia -123 yesterday, pt is asymptomatic, pending AM Na -SIADH and hypothyroidism have been ruled out -AM cortisol level normal YESSICA on CKD3 -Cr and eGFR stable, below baseline -Continue diuresis, monitor kidney function Anemia -Chronic normocytic anemia likely 2/2 to CKD. -FOBT positive, will likely need outpt colonoscopy -Pending CBC this morning -Continue protonix DM 2 -A1c 12.1, pt's insulin has been held due to hypoglycemia, likely 2/2 renal function -Currently on no medications, blood glucose has been near goal for the past 5 days -Continue ACHS accuchecks -Encourage regular PO intake -Will continue to monitor CAD s/p cabg -Continue home medications HTN -BP is improving and we are continuing BP medications. Will continue to monitor vitals and renal function Sepsis 2/2 dry gangrene of L 1st toe s/p left BKA -Sepsis resolved -POD 16, pain management with tylenol and tramadol PRN -Pt accepted to rehab, pending resolution of hyponatremia
[2019-01-05 07:37] LABS: #Basophils 0.1 thou/uL (0.0-0.2); #Eosinphils 0.3 thou/uL (0.0-0.7); #Lymphocytes 1.3 thou/uL (1.20-3.40); #Monocytes 0.6 thou/uL (0.11-0.59); #Neutrophils 2.8 thou/uL (1.40-6.50); %Basophils 1.3 % (0.0-1.0); %Eosinophils 5.8 % (0.0-10.0); %Lymphocytes 24.8 % (21.0-51.0); %Monocytes 12.7 % (0.0-10.0); %Neutrophils 55.4 % (42.0-75.0); Hemoglobin 7.7 g/dL (14.0-18.0); Mean Corpuscular HGB CONC 33.5 g/dL (32.0-36.0); Mean Corpuscular Hemoglobin 29.9 pg (27.0-31.0); Mean Corpuscular Volume 89.4 fL (78.0-98.0); Mean Platelet Volume 7.6 fL (7.4-10.4); Platelet Count 279 thou/uL (130-400); RBC Distribution Width 12.2 % (11.5-14.5); Red Blood Cell (RBC) Count 2.56 mill/uL (4.70-6.10); White Blood Cell (WBC) Count 5.1 thou/uL (4.8-10.8)
[2019-01-05 07:56] LABS: Anion Gap 12 mmol/L (10-20); BUN (Urea Nitrogen) 19 mg/dL (8.4-25.7); Calc. Creatinine Clearance 52 mL/min (70-130); Calcium 8.8 mg/dL (7.8-10.44); Carbon Dioxide 28 mmol/L (23-31); Chloride 88 mmol/L (98-107); Estimated GFR-MDRD 37; Glucose 116 mg/dL (80-115); Potassium 4.2 mmol/L (3.5-5.1); Sodium 124 mmol/L (136-145)
[2019-01-05] MEDS: Gabapentin 300 MG CAP PO SCH ×2 (08:22→08:26)
[2019-01-05] MEDS: Atorvastatin Calcium 40 MG TAB PO SCH (08:22)
[2019-01-05] MEDS: Fish Oil 1,000 MG CAP PO SCH (08:22)
[2019-01-05] MEDS: Amlodipine 10 MG TAB PO SCH (08:22)
[2019-01-05] MEDS: guaiFENesin ER 600 MG TAB PO SCH ×2 (08:23→20:03)
[2019-01-05] MEDS: Carvedilol 6.25 MG TAB PO SCH ×2 (08:23→20:03)
[2019-01-05] MEDS: Lisinopril 20 MG TAB PO SCH (08:23)
[2019-01-05] MEDS: Ferrous Sulfate 325 MG TAB PO SCH ×2 (08:23→18:09)
[2019-01-05] MEDS: Aspirin Chewable 81 MG TAB PO SCH (08:23)
[2019-01-05] MEDS: Enoxaparin Sodium 40 MG/0.4 ML SYRINGE SC SCH (08:24)
[2019-01-05] MEDS: Sodium Chloride 1 GM TAB PO SCH ×3 (08:24→20:03)
--- NOTE | 2019-01-05 11:22 | PRG ---
DATE OF SERVICE: 01/05/2019 Deandra looks remarkably better this morning. He is in good spirits. He is ambulating well with his walker under the care of PT. His sodium has risen to 124, chloride is now 88. BUN 19, creatinine 1.87. We will likely give him another bolus of saline today as this does seem to be improving his serum sodium level. As soon as his level is above 125 to 126 and still increasing, we would like to be able to transfer him to rehab. Job ID: [id number]
[2019-01-05] MEDS ORDERED: Sodium Chloride 0.9% 500 ML IV SCH (11:30)
--- NOTE | 2019-01-05 11:52 | PRG ---
DATE OF SERVICE: 01/05/2019 SUBJECTIVE: Nephrology was reconsulted because of the acute kidney injury. Patient was seen and examined at bedside and overnight events noted. Patient denies shortness of breath or cramps or chest pain or palpitation. No Nausea or vomiting or diarrhea or fever or chills. OBJECTIVE: GENERAL: This is an obese male, in no apparent distress, sitting up in the chair and talking with the family. VITAL SIGNS: Temperature 98.2, pulse 67, respiratory rate 20, blood pressure 143/81. MUSCULOSKELETAL: 1+ edema. HEENT: Atraumatic normocephalic Neck: Supple Cardiovascular: S1S2 heard, Rate and rhythm regular Respiratory: Clear to auscultation Gastrointestinal: Abdomen is soft Dermatologic : No skin rash Neurologic: Alert and awake and oriented X3 No focal neurologic deficits. Moving all the extremities. Psychiatric: Mood and affect normal LABORATORY DATA: Sodium is 124, potassium is 4.2, BUN is 19, creatinine is 1.8. ASSESSMENT AND PLAN: 1. Acute kidney injury and chronic kidney disease stage III, most likely cardiorenal. Creatinine getting better with Lasix. Limit fluid intake. 2. Hyponatremia. Limit fluid intake. 3. Edema. 4. Hypertension. 5. Metabolic acidosis. We will monitor. 6. Anemia, mostly likely from chronic disease, rule out any bleed. I agree with the current management. Avoid nephrotoxin. We will monitor renal function. Limit fluid intake. Job ID: [id number] MTDD
[2019-01-05] MEDS: Acetaminophen 500 MG TAB PO PRN (20:03)
[2019-01-05] MEDS: Ondansetron PF 4 MG/2 ML Vial IVP PRN (20:12)
[2019-01-06 05:19] LABS: Anion Gap 11 mmol/L (10-20); BUN (Urea Nitrogen) 19 mg/dL (8.4-25.7); Calc. Creatinine Clearance 53 mL/min (70-130); Calcium 8.3 mg/dL (7.8-10.44); Carbon Dioxide 28 mmol/L (23-31); Chloride 89 mmol/L (98-107); Estimated GFR-MDRD 38; Glucose 150 mg/dL (80-115); Sodium 124 mmol/L (136-145)
[2019-01-06] MEDS: Furosemide 40 MG/4 ML VIAL SLOW IVP SCH ×2 (06:02→14:47)
--- NOTE | 2019-01-06 06:03 | PDOC.FM ---
- Subjective Subjective: No complaints this morning. States he was able to practice with prosthetic yesterday with PT. - Objective Vital Signs & Weight: Vital Signs (12 hours) Temp Pulse Resp BP BP BP BP 01/06/19 04:00 97.5 F L 66 16 106/64 01/06/19 00:00 97.3 F L 55 L 16 103/61 01/05/19 20:03 134/76 01/05/19 20:00 98.2 F 64 18 134/76 Pulse Ox 01/06/19 04:00 96 01/06/19 00:00 98 01/05/19 20:03 01/05/19 20:00 97 Weight Admit Weight 80.74 kg Weight 89.074 kg Most Recent Monitor Data Heart Rate from ECG 51 NIBP 114/64 NIBP BP-Mean 80 Respiration from ECG 12 SpO2 97 I&O: 01/04/19 01/05/19 01/06/19 06:59 06:59 06:59 Intake Total 990 1510 2145 Output Total 2500 3250 3025 Balance -1510 -1740 -880 Result Diagrams: 01/05/19 07:16 01/06/19 04:35 Phys Exam - Physical Examination Constitutional: NAD Respiratory: no wheezing, clear to auscultation bilateral Cardiovascular: RRR, no significant murmur Gastrointestinal: soft, positive bowel sounds Musculoskeletal: no edema, pulses present Neurological: moves all 4 limbs Psychiatric: normal affect Skin: no rash, normal turgor, cap refill <2 seconds Dx/Plan (1) Anemia Code(s): D64.9 - ANEMIA, UNSPECIFIED Status: Acute (2) Hyponatremia Code(s): E87.1 - HYPO-OSMOLALITY AND HYPONATREMIA Status: Acute (3) CAD (coronary artery disease) Code(s): I25.10 - ATHSCL HEART DISEASE OF [place] CORONARY ARTERY W/O ANG PCTRS Status: Chronic (4) CKD (chronic kidney disease), stage III Code(s): N18.3 - CHRONIC KIDNEY DISEASE, STAGE 3 (MODERATE) Status: Chronic (5) Diabetes Code(s): E11.9 - TYPE 2 DIABETES MELLITUS WITHOUT COMPLICATIONS Status: Chronic Qualifiers: Diabetes mellitus type: type 2 Diabetes mellitus complication status: with kidney complications Diabetes mellitus complication detail: with chronic kidney disease Chronic kidney disease stage: stage 3 (moderate) (6) HTN (hypertension) Code(s): I10 - ESSENTIAL (PRIMARY) HYPERTENSION Status: Chronic (7) S/P CABG (coronary artery bypass graft) Code(s): Z95.1 - PRESENCE OF AORTOCORONARY BYPASS GRAFT Status: Chronic (8) (HFpEF) heart failure with preserved ejection fraction Code(s): I50.30 - UNSPECIFIED DIASTOLIC (CONGESTIVE) HEART FAILURE Status: Suspected Qualifiers: Heart failure chronicity: chronic Qualified Code(s): I50.32 - Chronic diastolic (congestive) heart failure (9) Acute exacerbation of CHF (congestive heart failure) Code(s): I50.9 - HEART FAILURE, UNSPECIFIED Status: Suspected Qualifiers: Heart failure type: diastolic Qualified Code(s): I50.33 - Acute on chronic diastolic (congestive) heart failure (10) YESSICA (acute kidney injury) Code(s): N17.9 - ACUTE KIDNEY FAILURE, UNSPECIFIED Status: Resolved (11) Sepsis Code(s): A41.9 - SEPSIS, UNSPECIFIED ORGANISM Status: Resolved - Plan Plan: This is a 63 yo male with a pmh of CAD s/p cabg, HTN, DM2, CKD, POD 16 s/p BKA Suspected acute on chronic CHF -Pt Required 1L nc overnight. Pt down 880 ml over last 24hrs -EF on 12/30 shows 50-55% w/o diastolic dysfunction. CTA negative for PE. Consider fluid retention 2/2 poor renal function. -Diuresis with lasix BID and 1500ml fluid restriction. -Continue monitoring I&Os Hyponatremia -124 yesterday -Fluid restricted, continue lasix 40 mg IV BID -Continue to monitor Na -SIADH and hypothyroidism have been ruled out -AM cortisol level normal -Nephrology following, appreciate recs YESSICA on CKD3 -Cr and eGFR stable, below baseline -Continue diuresis, monitor kidney function -Nephro consulted, appreciate recs Anemia -Chronic normocytic anemia likely 2/2 to CKD. -FOBT positive, will likely need outpt colonoscopy -monitor with AM CBC -Continue protonix DM 2 -A1c 12.1, pt's insulin has been held due to hypoglycemia, likely 2/2 renal function -Currently on no medications, blood glucose has been near goal for the past 6 days -Continue ACHS accuchecks -Encourage regular PO intake -Will continue to monitor CAD s/p cabg -Continue home medications HTN -BP is improving and we are continuing BP medications. Will continue to monitor vitals and renal function Sepsis 2/2 dry gangrene of L 1st toe s/p left BKA -Sepsis resolved -POD 16, pain management with tylenol and tramadol PRN -Pt accepted to rehab, pending resolution of hyponatremia Dispo: d/c 2-3 days, depending on resolution of hyponatremia Addendum - Attending - Attending Attestation Date/Time: 01/06/19 0804 I personally evaluated the patient and discussed the management with Dr. Sumaya Louis I agree with the History, Examination, Assessment and Plan documented above with any addition or exceptions noted below. Hyponatremia on po Nacl and fluid restriction.
[2019-01-06] MEDS: Atorvastatin Calcium 40 MG TAB PO SCH (08:58)
[2019-01-06] MEDS: guaiFENesin ER 600 MG TAB PO SCH ×2 (08:58→20:00)
[2019-01-06] MEDS: Fish Oil 1,000 MG CAP PO SCH (08:58)
[2019-01-06] MEDS: Sodium Chloride 1 GM TAB PO SCH ×3 (08:59→20:00)
[2019-01-06] MEDS: Aspirin Chewable 81 MG TAB PO SCH (08:59)
[2019-01-06] MEDS: Ferrous Sulfate 325 MG TAB PO SCH ×2 (08:59→17:52)
[2019-01-06] MEDS: Enoxaparin Sodium 40 MG/0.4 ML SYRINGE SC SCH (09:00)
[2019-01-06] MEDS: Gabapentin 300 MG CAP PO SCH (09:02)
[2019-01-06] MEDS: Carvedilol 6.25 MG TAB PO SCH ×2 (11:22→20:00)
[2019-01-06] MEDS: Amlodipine 10 MG TAB PO SCH (11:22)
[2019-01-06] MEDS: Lisinopril 20 MG TAB PO SCH (11:23)
[2019-01-06] MEDS: Acetaminophen 500 MG TAB PO PRN (12:37)
--- NOTE | 2019-01-06 13:10 | PRG ---
DATE OF SERVICE: 01/06/2019 SUBJECTIVE: The patient is a 63-year-old gentleman, being seen for acute kidney injury. The patient denies any nausea, vomiting, or chest pain. OBJECTIVE: CONSTITUTIONAL: The patient is awake and alert, in no acute distress. VITAL SIGNS: Afebrile, pulse 60, breathing 16, blood pressure 121/74. GENERAL APPEARANCE AND MENTAL STATUS: Fair. HEAD/NECK: Normocephalic. Atraumatic. EYES: EOMI. No deformity. EARS: Clear. No ulcers. NOSE: Intact. No lesions. MOUTH: Clear. No discharge. THROAT: Clear. No exudate. LUNGS: Clear. No crackles. CARDIAC: S1, S2. No rub. ABDOMEN: Benign. Bowel sounds positive. GENITALIA/RECTUM: Whyte absent. BACK/EXTREMITIES: Edema 0+. NEUROLOGICAL: Alert and motor intact. SKIN: LYMPHATICS: LABORATORY DATA: Labs show hemoglobin 7.7. Creatinine 1.8. ASSESSMENT AND RECOMMENDATIONS: 1. Chronic kidney disease, stage 3, stable. 2. Hypertension, stable. 3. Hyponatremia. Recommend fluid restriction. 4. Medication based on GFR, appropriate. 5. No indication for dialysis. Job ID: [id number]
[2019-01-06] MEDS: HumaLOG 300 UNITS/3 ML VIAL SC PRN (14:47)
[2019-01-07] MEDS: Furosemide 40 MG/4 ML VIAL SLOW IVP SCH (05:56)
--- NOTE | 2019-01-07 06:34 | PDOC.FM ---
Addendum entered and electronically signed by Lindy Louis MD 01/07/19 09:17: DM2 -Currently On Insulin glargine 5 units daily, continue Original Note: - Subjective Subjective: Patient feeling well this AM. No complaints other than he is tired of being in the hospital and does not sleep well at night because his bed is uncomfortable. - Objective Vital Signs & Weight: Vital Signs (12 hours) Temp Pulse Resp BP BP BP BP 01/07/19 04:00 97.8 F 62 16 144/75 H 01/07/19 03:43 01/07/19 00:00 98 F 60 16 102/65 01/06/19 20:00 97.3 F L 60 18 121/75 114/66 Pulse Ox 01/07/19 04:00 96 01/07/19 03:43 96 01/07/19 00:00 95 01/06/19 20:00 97 Weight Admit Weight 80.74 kg Weight 89.074 kg Most Recent Monitor Data Heart Rate from ECG 51 NIBP 114/64 NIBP BP-Mean 80 Respiration from ECG 12 SpO2 97 I&O: 01/05/19 01/06/19 01/07/19 06:59 06:59 06:59 Intake Total 1510 2145 1610 Output Total 3250 3025 2100 Balance -6110 -880 -107 Result Diagrams: 01/05/19 07:16 01/07/19 06:45 Phys Exam - Physical Examination Constitutional: NAD HEENT: moist MMs Neck: no nodes, supple Respiratory: no wheezing, clear to auscultation bilateral Cardiovascular: RRR 3/6 systolic murmur Gastrointestinal: soft, non-tender, positive bowel sounds Musculoskeletal: pulses present Neurological: moves all 4 limbs Psychiatric: normal affect Dx/Plan (1) Anemia Code(s): D64.9 - ANEMIA, UNSPECIFIED Status: Acute (2) Hyponatremia Code(s): E87.1 - HYPO-OSMOLALITY AND HYPONATREMIA Status: Acute (3) CAD (coronary artery disease) Code(s): I25.10 - ATHSCL HEART DISEASE OF [place] CORONARY ARTERY W/O ANG PCTRS Status: Chronic (4) CKD (chronic kidney disease), stage III Code(s): N18.3 - CHRONIC KIDNEY DISEASE, STAGE 3 (MODERATE) Status: Chronic (5) Diabetes Code(s): E11.9 - TYPE 2 DIABETES MELLITUS WITHOUT COMPLICATIONS Status: Chronic Qualifiers: Diabetes mellitus type: type 2 Diabetes mellitus complication status: with kidney complications Diabetes mellitus complication detail: with chronic kidney disease Chronic kidney disease stage: stage 3 (moderate) (6) HTN (hypertension) Code(s): I10 - ESSENTIAL (PRIMARY) HYPERTENSION Status: Chronic (7) S/P CABG (coronary artery bypass graft) Code(s): Z95.1 - PRESENCE OF AORTOCORONARY BYPASS GRAFT Status: Chronic (8) (HFpEF) heart failure with preserved ejection fraction Code(s): I50.30 - UNSPECIFIED DIASTOLIC (CONGESTIVE) HEART FAILURE Status: Suspected Qualifiers: Heart failure chronicity: chronic Qualified Code(s): I50.32 - Chronic diastolic (congestive) heart failure (9) Acute exacerbation of CHF (congestive heart failure) Code(s): I50.9 - HEART FAILURE, UNSPECIFIED Status: Suspected Qualifiers: Heart failure type: diastolic Qualified Code(s): I50.33 - Acute on chronic diastolic (congestive) heart failure (10) YESSICA (acute kidney injury) Code(s): N17.9 - ACUTE KIDNEY FAILURE, UNSPECIFIED Status: Resolved (11) Sepsis Code(s): A41.9 - SEPSIS, UNSPECIFIED ORGANISM Status: Resolved - Plan Plan: This is a 63 yo male with a pmh of CAD s/p cabg, HTN, DM2, CKD, POD 17 s/p BKA Suspected acute on chronic CHF -Pt Required 1L nc overnight. Pt down 880 ml over last 24hrs -EF on 12/30 shows 50-55% w/o diastolic dysfunction. CTA negative for PE. Consider fluid retention 2/2 poor renal function. -Diuresis with lasix BID and 1500ml fluid restriction. -Continue monitoring I&Os Hyponatremia -125 today -Strict Fluid restriction, lasix transitioned from IV to PO -Continue to monitor Na -SIADH and hypothyroidism have been ruled out -AM cortisol level normal -Nephrology following, appreciate recs YESSICA on CKD3 -Cr and eGFR stable, below baseline -Continue diuresis, monitor kidney function -Nephro consulted, appreciate recs Anemia -Chronic normocytic anemia likely 2/2 to CKD. -FOBT positive, will likely need outpt colonoscopy -Continue protonix DM 2 -A1c 12.1, pt's insulin has been held due to hypoglycemia, likely 2/2 renal function -used 2 units humalog yesterday -SSI -Continue ACHS accuchecks -Encourage regular PO intake -Will continue to monitor CAD s/p cabg -Continue home medications HTN -BP is improving and we are continuing BP medications - Will continue to monitor vitals and renal function Sepsis 2/2 dry gangrene of L 1st toe s/p left BKA -Sepsis resolved -POD 17, pain management with tylenol and tramadol PRN -Pt accepted to rehab, pending resolution of hyponatremia Dispo: likely discharge today to case management Addendum - Attending - Attending Attestation Date/Time: 01/07/19 474 I personally evaluated the patient and discussed the management with Dr. Mays I agree with the History, Examination, Assessment and Plan documented above with any addition or exceptions noted below.Sodium stable albeit low patient ok to d/c to rehab with continued monitoring lytes unless Nephrology has objection to outpt f/u
[2019-01-07 07:46] LABS: Anion Gap 11 mmol/L (10-20); BUN (Urea Nitrogen) 16 mg/dL (8.4-25.7); Calc. Creatinine Clearance 52 mL/min (70-130); Carbon Dioxide 27 mmol/L (23-31); Chloride 91 mmol/L (98-107); Estimated GFR-MDRD 37; Glucose 88 mg/dL (80-115); Potassium 4.1 mmol/L (3.5-5.1); Sodium 125 mmol/L (136-145)
[2019-01-07] MEDS: Fish Oil 1,000 MG CAP PO SCH (08:07)
[2019-01-07] MEDS: Enoxaparin Sodium 40 MG/0.4 ML SYRINGE SC SCH (08:07)
[2019-01-07] MEDS: Lisinopril 20 MG TAB PO SCH (08:08)
[2019-01-07] MEDS: Furosemide 80 MG TAB PO SCH ×2 (08:09→13:51)
[2019-01-07] MEDS: Ferrous Sulfate 325 MG TAB PO SCH ×2 (08:10→16:33)
[2019-01-07] MEDS: Gabapentin 300 MG CAP PO SCH (08:10)
[2019-01-07] MEDS: Atorvastatin Calcium 40 MG TAB PO SCH (08:10)
[2019-01-07] MEDS: Carvedilol 6.25 MG TAB PO SCH ×2 (08:11→20:03)
[2019-01-07] MEDS: Amlodipine 10 MG TAB PO SCH (08:11)
[2019-01-07] MEDS: Aspirin Chewable 81 MG TAB PO SCH (08:11)
[2019-01-07] MEDS: guaiFENesin ER 600 MG TAB PO SCH ×2 (08:12→20:00)
[2019-01-07] MEDS: Sodium Chloride 1 GM TAB PO SCH ×3 (08:13→20:00)
[2019-01-07] MEDS: Insulin Glargine 5 UNITS in Pre-Filled Syringe 1 EACH SC SCH (08:20)
--- NOTE | 2019-01-07 09:27 | PRG ---
DATE OF SERVICE: 01/07/2019 SUBJECTIVE: A 63-year-old gentleman being seen for acute kidney injury. The patient denies any nausea, vomiting, or chest pain. OBJECTIVE: GENERAL: The patient is awake and alert. VITAL SIGNS: Afebrile, pulse 66, breathing 16, and blood pressure 130/71. GENERAL APPEARANCE AND MENTAL STATUS: Fair. HEAD/NECK: Normocephalic. Atraumatic. EYES: EOMI. No deformity. EARS: Clear. No ulcers. NOSE: Intact. No lesions. MOUTH: Clear. No discharge. THROAT: Clear. No exudate. LUNGS: Clear. No crackles. CARDIAC: S1, S2. No rub. ABDOMEN: Benign. Bowel sounds positive. GENITALIA/RECTUM: Whyte absent. BACK/EXTREMITIES: Edema 0+. NEUROLOGICAL: Alert and motor intact. SKIN: LYMPHATICS: LABORATORY DATA: Labs show hemoglobin 7.7 and creatinine 1.8. ASSESSMENT AND PLAN: 1. Acute kidney injury with chronic kidney disease, stage 3, stable. 2. Hypertension, stable. 3. Anemia. Recommend transfusion. 4. Medication based on GFR appropriate. I will sign off on this patient. Please reconsult as needed. Job ID: [id number]
[2019-01-07] MEDS ORDERED: Epoetin (ESRD) 20,000 UNITS/ML SC SCH ×2 (10:00→14:00)
[2019-01-07] MEDS ORDERED: Epoetin (ESRD) 10,000 UNITS/ML VIAL SC SCH ×2 (12:00→14:00)
[2019-01-07 13:00] VITALS: BMI 34.7
[2019-01-07] MEDS: Acetaminophen 500 MG TAB PO PRN (21:39)
[2019-01-07] MEDS: HumaLOG 300 UNITS/3 ML VIAL SC PRN (21:39)
--- NOTE | 2019-01-08 06:53 | PDOC.FM ---
- Subjective Subjective: Pt feeling well this AM. No complaints. - Objective Vital Signs & Weight: Vital Signs (12 hours) Temp Pulse Resp BP BP Pulse Ox 01/08/19 04:26 98.1 F 60 18 110/60 95 01/08/19 00:41 98.0 F 62 18 116/70 99 01/07/19 20:39 97.8 F 62 18 118/73 95 01/07/19 20:03 130/71 01/07/19 20:00 95 Weight Admit Weight 80.74 kg Weight 89.074 kg Most Recent Monitor Data Heart Rate from ECG 51 NIBP 114/64 NIBP BP-Mean 80 Respiration from ECG 12 SpO2 97 I&O: 01/06/19 01/07/19 01/08/19 06:59 06:59 06:59 Intake Total 2145 1610 1540 Output Total 3025 2100 1750 Balance -880 -490 -210 Result Diagrams: 01/08/19 08:53 01/07/19 06:45 Phys Exam - Physical Examination Constitutional: NAD HEENT: moist MMs Respiratory: no wheezing, clear to auscultation bilateral Cardiovascular: RRR 3/6 systolic murmur Gastrointestinal: soft, no distention, positive bowel sounds Musculoskeletal: no edema, pulses present Neurological: non-focal, moves all 4 limbs Psychiatric: normal affect, A&O x 3 Skin: normal turgor, cap refill <2 seconds Dx/Plan (1) Anemia Code(s): D64.9 - ANEMIA, UNSPECIFIED Status: Acute (2) Hyponatremia Code(s): E87.1 - HYPO-OSMOLALITY AND HYPONATREMIA Status: Acute (3) CAD (coronary artery disease) Code(s): I25.10 - ATHSCL HEART DISEASE OF [place] CORONARY ARTERY W/O ANG PCTRS Status: Chronic (4) CKD (chronic kidney disease), stage III Code(s): N18.3 - CHRONIC KIDNEY DISEASE, STAGE 3 (MODERATE) Status: Chronic (5) Diabetes Code(s): E11.9 - TYPE 2 DIABETES MELLITUS WITHOUT COMPLICATIONS Status: Chronic Qualifiers: Diabetes mellitus type: type 2 Diabetes mellitus complication status: with kidney complications Diabetes mellitus complication detail: with chronic kidney disease Chronic kidney disease stage: stage 3 (moderate) (6) HTN (hypertension) Code(s): I10 - ESSENTIAL (PRIMARY) HYPERTENSION Status: Chronic (7) S/P CABG (coronary artery bypass graft) Code(s): Z95.1 - PRESENCE OF AORTOCORONARY BYPASS GRAFT Status: Chronic (8) (HFpEF) heart failure with preserved ejection fraction Code(s): I50.30 - UNSPECIFIED DIASTOLIC (CONGESTIVE) HEART FAILURE Status: Suspected Qualifiers: Heart failure chronicity: chronic Qualified Code(s): I50.32 - Chronic diastolic (congestive) heart failure (9) Acute exacerbation of CHF (congestive heart failure) Code(s): I50.9 - HEART FAILURE, UNSPECIFIED Status: Suspected Qualifiers: Heart failure type: diastolic Qualified Code(s): I50.33 - Acute on chronic diastolic (congestive) heart failure (10) YESSICA (acute kidney injury) Code(s): N17.9 - ACUTE KIDNEY FAILURE, UNSPECIFIED Status: Resolved (11) Sepsis Code(s): A41.9 - SEPSIS, UNSPECIFIED ORGANISM Status: Resolved - Plan Plan: This is a 63 yo male with a pmh of CAD s/p cabg, HTN, DM2, CKD, POD 17 s/p BKA Suspected acute on chronic CHF, resolved -Pt Required 1L nc overnight. Pt down 880 ml over last 24hrs -EF on 12/30 shows 50-55% w/o diastolic dysfunction. CTA negative for PE. Consider fluid retention 2/2 poor renal function. -Diuresis with lasix BID and 1500ml fluid restriction -Continue monitoring I&Os Hyponatremia 2/2 CKD, improved -improved to 125 -Strict Fluid restriction, PO lasix, continue salt tabs with tums -SIADH and hypothyroidism have been ruled out -AM cortisol level normal -Nephrology following, appreciate recs -Will recheck in a few days if patient is not placed YESSICA on CKD3, stable -Cr and eGFR stable, below baseline -Continue diuresis, monitor kidney function -Nephro consulted, appreciate recs Anemia, stable -Chronic normocytic anemia likely 2/2 to CKD. -FOBT positive, will likely need outpt colonoscopy -Continue protonix -Hgb 7.8 today DM 2 -A1c 12.1, pt's insulin has been held due to hypoglycemia, likely 2/2 renal function -5 units lantus daily -SSI -Continue ACHS accuchecks CAD s/p cabg -Continue home medications HTN, stable -BP is improving and we are continuing BP medications - Will continue to monitor vitals and renal function Sepsis 2/2 dry gangrene of L 1st toe s/p left BKA, resolved -Sepsis resolved -POD 17, pain management with tylenol and tramadol PRN -Pt accepted to rehab, pending resolution of hyponatremia Dispo: discharge as soon as rehab placement secured Addendum - Attending - Attending Attestation Date/Time: 01/08/19 6742 I personally evaluated the patient and discussed the management with Dr. matheus Louis I agree with the History, Examination, Assessment and Plan documented above with any addition or exceptions noted below.Patient appears stable tolerating po salt tablet with addition calcium carbonate.D/C to rehab as bed available.
[2019-01-08] MEDS: Ferrous Sulfate 325 MG TAB PO SCH ×2 (08:45→20:25)
[2019-01-08] MEDS: Sodium Chloride 1 GM TAB PO SCH ×3 (08:45→20:29)
[2019-01-08] MEDS: Calcium Carbonate 500 MG ChewTAB PO SCH ×3 (08:45→20:28)
[2019-01-08] MEDS: Lisinopril 20 MG TAB PO SCH (08:46)
[2019-01-08] MEDS: Atorvastatin Calcium 40 MG TAB PO SCH (08:47)
[2019-01-08] MEDS: Carvedilol 6.25 MG TAB PO SCH ×2 (08:48→20:31)
[2019-01-08] MEDS: guaiFENesin ER 600 MG TAB PO SCH ×2 (08:48→20:29)
[2019-01-08] MEDS: Furosemide 80 MG TAB PO SCH ×2 (08:48→13:56)
[2019-01-08] MEDS: Gabapentin 300 MG CAP PO SCH (08:48)
[2019-01-08] MEDS: Aspirin Chewable 81 MG TAB PO SCH (08:48)
[2019-01-08] MEDS: Fish Oil 1,000 MG CAP PO SCH (08:48)
[2019-01-08] MEDS: Amlodipine 10 MG TAB PO SCH (08:49)
[2019-01-08] MEDS: Insulin Glargine 5 UNITS in Pre-Filled Syringe 1 EACH SC SCH (08:50)
[2019-01-08] MEDS: Enoxaparin Sodium 40 MG/0.4 ML SYRINGE SC SCH (08:50)
[2019-01-08 09:11] LABS: #Eosinphils 0.5 thou/uL (0.0-0.7); #Lymphocytes 1.5 thou/uL (1.20-3.40); #Monocytes 0.5 thou/uL (0.11-0.59); #Neutrophils 2.8 thou/uL (1.40-6.50); %Eosinophils 9.5 % (0.0-10.0); %Lymphocytes 29.1 % (21.0-51.0); %Neutrophils 52.4 % (42.0-75.0); Hemoglobin 7.8 g/dL (14.0-18.0); Mean Corpuscular HGB CONC 32.4 g/dL (32.0-36.0); Mean Corpuscular Hemoglobin 29.1 pg (27.0-31.0); Mean Corpuscular Volume 89.6 fL (78.0-98.0); Mean Platelet Volume 7.5 fL (7.4-10.4); Platelet Count 296 thou/uL (130-400); RBC Distribution Width 12.3 % (11.5-14.5); Red Blood Cell (RBC) Count 2.68 mill/uL (4.70-6.10); White Blood Cell (WBC) Count 5.3 thou/uL (4.8-10.8)
[2019-01-08] MEDS: HumaLOG 300 UNITS/3 ML VIAL SC PRN (19:00)
[2019-01-09] MEDS ORDERED: Insulin Glargine 8 UNITS in Pre-Filled Syringe 1 EACH SC SCH (05:48)
--- NOTE | 2019-01-09 05:48 | PDOC.FM ---
- Subjective Subjective: Patient feeling well. Discussed why he has been refusing salt tablets, discussed chewing tums prior to taking salt tabs to prevent upset stomach. Patient reports he has been swallowing the Tums whole. He will try taking them today as recommended. Reports his pain is well controlled. - Objective Vital Signs & Weight: Vital Signs (12 hours) Temp Pulse Resp BP BP Pulse Ox 01/09/19 04:14 98.2 F 68 18 108/60 96 01/09/19 00:08 97.9 F 67 18 93/61 93 L 01/08/19 20:35 98.4 F 65 18 101/61 95 01/08/19 20:31 101/61 01/08/19 20:00 95 Weight Admit Weight 80.74 kg Weight 88.904 kg Most Recent Monitor Data Heart Rate from ECG 51 NIBP 114/64 NIBP BP-Mean 80 Respiration from ECG 12 SpO2 97 I&O: 01/07/19 01/08/19 01/09/19 06:59 06:59 06:59 Intake Total 1610 1540 1010 Output Total 2100 1750 2450 Balance -490 -210 -1440 Result Diagrams: 01/08/19 08:53 01/09/19 13:40 Phys Exam - Physical Examination Constitutional: NAD Patient doing leg exercises as I entered the room Neck: no nodes, supple Respiratory: no wheezing, clear to auscultation bilateral Cardiovascular: RRR 3/6 systolic murmur Gastrointestinal: soft, non-tender, no distention Musculoskeletal: no edema, pulses present Neurological: non-focal, moves all 4 limbs Psychiatric: normal affect, A&O x 3 Skin: no rash, normal turgor, cap refill <2 seconds Dx/Plan (1) Anemia Code(s): D64.9 - ANEMIA, UNSPECIFIED Status: Acute (2) Hyponatremia Code(s): E87.1 - HYPO-OSMOLALITY AND HYPONATREMIA Status: Acute (3) CAD (coronary artery disease) Code(s): I25.10 - ATHSCL HEART DISEASE OF [place] CORONARY ARTERY W/O ANG PCTRS Status: Chronic (4) CKD (chronic kidney disease), stage III Code(s): N18.3 - CHRONIC KIDNEY DISEASE, STAGE 3 (MODERATE) Status: Chronic (5) Diabetes Code(s): E11.9 - TYPE 2 DIABETES MELLITUS WITHOUT COMPLICATIONS Status: Chronic Qualifiers: Diabetes mellitus type: type 2 Diabetes mellitus complication status: with kidney complications Diabetes mellitus complication detail: with chronic kidney disease Chronic kidney disease stage: stage 3 (moderate) (6) HTN (hypertension) Code(s): I10 - ESSENTIAL (PRIMARY) HYPERTENSION Status: Chronic (7) S/P CABG (coronary artery bypass graft) Code(s): Z95.1 - PRESENCE OF AORTOCORONARY BYPASS GRAFT Status: Chronic (8) (HFpEF) heart failure with preserved ejection fraction Code(s): I50.30 - UNSPECIFIED DIASTOLIC (CONGESTIVE) HEART FAILURE Status: Suspected Qualifiers: Heart failure chronicity: chronic Qualified Code(s): I50.32 - Chronic diastolic (congestive) heart failure (9) Acute exacerbation of CHF (congestive heart failure) Code(s): I50.9 - HEART FAILURE, UNSPECIFIED Status: Suspected Qualifiers: Heart failure type: diastolic Qualified Code(s): I50.33 - Acute on chronic diastolic (congestive) heart failure (10) YESSICA (acute kidney injury) Code(s): N17.9 - ACUTE KIDNEY FAILURE, UNSPECIFIED Status: Resolved (11) Sepsis Code(s): A41.9 - SEPSIS, UNSPECIFIED ORGANISM Status: Resolved - Plan Plan: Suspected acute on chronic CHF, resolved -EF on 12/30 shows 50-55% w/o diastolic dysfunction. CTA negative for PE. Consider fluid retention 2/2 poor renal function. -Diuresis with lasix BID and 1500ml fluid restriction -Continue monitoring I&Os Hyponatremia 2/2 CKD, improved -improved to 125 -Strict Fluid restriction, PO lasix, continue salt tabs with tums -hypothyroidism has been ruled out -AM cortisol level normal -Nephrology following, appreciate recs -Will recheck with BMP in AM if patient is not placed YESSICA on CKD3, stable -Cr and eGFR stable, below baseline -Continue diuresis, monitor kidney function -Nephro consulted, appreciate recs Anemia, stable -Chronic normocytic anemia likely 2/2 to CKD. -FOBT positive, will likely need outpt colonoscopy -Continue protonix -Hgb 7.8 DM 2 -A1c 12.1 -Increased to 8 units lantus -SSI -Continue ACHS accuchecks CAD s/p cabg -Continue home medications HTN, stable -BP is improving and we are continuing BP medications - Will continue to monitor vitals and renal function Sepsis 2/2 dry gangrene of L 1st toe s/p left BKA, resolved -Sepsis resolved -Pain management with tylenol and tramadol PRN Dispo: discharge as soon as rehab placement secured Addendum - Attending - Attending Attestation Date/Time: 01/09/19 7588 I personally evaluated the patient and discussed the management with Dr. Louis I agree with the History, Examination, Assessment and Plan documented above with any addition or exceptions noted below.
[2019-01-09] MEDS: Ferrous Sulfate 325 MG TAB PO SCH ×2 (08:54→16:48)
[2019-01-09] MEDS: Furosemide 80 MG TAB PO SCH ×2 (09:49→13:38)
[2019-01-09] MEDS: Atorvastatin Calcium 40 MG TAB PO SCH (09:49)
[2019-01-09] MEDS: Sodium Chloride 1 GM TAB PO SCH ×3 (09:50→19:35)
[2019-01-09] MEDS: Lisinopril 20 MG TAB PO SCH (09:50)
[2019-01-09] MEDS: Aspirin Chewable 81 MG TAB PO SCH (09:51)
[2019-01-09] MEDS: Gabapentin 300 MG CAP PO SCH (09:51)
[2019-01-09] MEDS: Fish Oil 1,000 MG CAP PO SCH (09:51)
[2019-01-09] MEDS: Amlodipine 10 MG TAB PO SCH (09:52)
[2019-01-09] MEDS: Carvedilol 6.25 MG TAB PO SCH ×2 (09:52→19:38)
[2019-01-09] MEDS: guaiFENesin ER 600 MG TAB PO SCH ×2 (09:52→19:35)
[2019-01-09] MEDS: Enoxaparin Sodium 40 MG/0.4 ML SYRINGE SC SCH (09:53)
[2019-01-09] MEDS: Calcium Carbonate 500 MG ChewTAB PO SCH ×3 (09:53→19:35)
[2019-01-09] MEDS: HumaLOG 300 UNITS/3 ML VIAL SC PRN (13:38)
[2019-01-09 14:07] LABS: Anion Gap 16 mmol/L (10-20); BUN (Urea Nitrogen) 19 mg/dL (8.4-25.7); Calc. Creatinine Clearance 48 mL/min (70-130); Calcium 8.9 mg/dL (7.8-10.44); Carbon Dioxide 25 mmol/L (23-31); Chloride 94 mmol/L (98-107); Estimated GFR-MDRD 33; Glucose 107 mg/dL (80-115); Sodium 131 mmol/L (136-145)
--- NOTE | 2019-01-10 06:17 | PDOC.FM ---
- Subjective Subjective: Patient feels well this AM. No complaints. Ready to leave the hospital. - Objective Vital Signs & Weight: Vital Signs (12 hours) Temp Pulse Resp BP BP Pulse Ox 01/10/19 04:23 98.1 F 72 18 99/58 L 95 01/10/19 00:29 98.2 F 68 18 107/63 95 01/09/19 20:28 97.3 F L 63 18 125/61 95 01/09/19 19:38 125/61 Weight Admit Weight 80.74 kg Weight 88.904 kg Most Recent Monitor Data Heart Rate from ECG 51 NIBP 114/64 NIBP BP-Mean 80 Respiration from ECG 12 SpO2 97 I&O: 01/08/19 01/09/19 01/10/19 06:59 06:59 06:59 Intake Total 1540 1010 2009 Output Total 1750 2450 2250 Balance -210 -1440 -240 Result Diagrams: 01/08/19 08:53 01/09/19 13:40 Phys Exam - Physical Examination Constitutional: NAD Respiratory: no wheezing, no rales, no rhonchi Cardiovascular: RRR, no rub 3/6 systolic murmur Gastrointestinal: soft, non-tender, no distention, positive bowel sounds Musculoskeletal: no edema, pulses present Psychiatric: normal affect, A&O x 3 Skin: no rash, normal turgor, cap refill <2 seconds Dx/Plan (1) Anemia Code(s): D64.9 - ANEMIA, UNSPECIFIED Status: Acute (2) Hyponatremia Code(s): E87.1 - HYPO-OSMOLALITY AND HYPONATREMIA Status: Acute (3) CAD (coronary artery disease) Code(s): I25.10 - ATHSCL HEART DISEASE OF [place] CORONARY ARTERY W/O ANG PCTRS Status: Chronic (4) CKD (chronic kidney disease), stage III Code(s): N18.3 - CHRONIC KIDNEY DISEASE, STAGE 3 (MODERATE) Status: Chronic (5) Diabetes Code(s): E11.9 - TYPE 2 DIABETES MELLITUS WITHOUT COMPLICATIONS Status: Chronic Qualifiers: Diabetes mellitus type: type 2 Diabetes mellitus complication status: with kidney complications Diabetes mellitus complication detail: with chronic kidney disease Chronic kidney disease stage: stage 3 (moderate) (6) HTN (hypertension) Code(s): I10 - ESSENTIAL (PRIMARY) HYPERTENSION Status: Chronic (7) S/P CABG (coronary artery bypass graft) Code(s): Z95.1 - PRESENCE OF AORTOCORONARY BYPASS GRAFT Status: Chronic (8) (HFpEF) heart failure with preserved ejection fraction Code(s): I50.30 - UNSPECIFIED DIASTOLIC (CONGESTIVE) HEART FAILURE Status: Suspected Qualifiers: Heart failure chronicity: chronic Qualified Code(s): I50.32 - Chronic diastolic (congestive) heart failure (9) Acute exacerbation of CHF (congestive heart failure) Code(s): I50.9 - HEART FAILURE, UNSPECIFIED Status: Suspected Qualifiers: Heart failure type: diastolic Qualified Code(s): I50.33 - Acute on chronic diastolic (congestive) heart failure (10) YESSICA (acute kidney injury) Code(s): N17.9 - ACUTE KIDNEY FAILURE, UNSPECIFIED Status: Resolved (11) Sepsis Code(s): A41.9 - SEPSIS, UNSPECIFIED ORGANISM Status: Resolved - Plan Plan: Suspected acute on chronic CHF, resolved -EF on 12/30 shows 50-55% w/o diastolic dysfunction. CTA negative for PE. Consider fluid retention 2/2 poor renal function. -Diuresis with lasix BID and 1500ml fluid restriction -Continue monitoring I&Os Hyponatremia 2/2 CKD, resolved -improved to 131 -Strict Fluid restriction, PO lasix, continue salt tabs with tums -hypothyroidism has been ruled out -AM cortisol level normal -Nephrology following, appreciate recs -Will recheck with BMP in AM if patient is not placed YESSICA on CKD3 -Cr increased slightly, eGFR stable -Continue diuresis, monitor kidney function -Nephro consulted, appreciate recs Anemia, stable -Chronic normocytic anemia likely 2/2 to CKD. -FOBT positive, will likely need outpt colonoscopy -Continue protonix -Hgb 7.8 DM 2 -A1c 12.1 -Increased to 10 units lantus as blood sugar over 200 this am -SSI -Continue ACHS accuchecks CAD s/p cabg -Continue home medications HTN, stable -BP is improving and we are continuing BP medications - Will continue to monitor vitals and renal function Sepsis 2/2 dry gangrene of L 1st toe s/p left BKA, resolved -Sepsis resolved -Pain management with tylenol and tramadol PRN Dispo: discharge as soon as rehab placement secured Addendum - Attending - Attending Attestation Date/Time: 01/10/19 0758 I personally evaluated the patient and discussed the management with Dr. Sumaya Louis I agree with the History, Examination, Assessment and Plan documented above with any addition or exceptions noted below.
[2019-01-10] MEDS: HumaLOG 300 UNITS/3 ML VIAL SC PRN ×3 (06:28→16:42)
[2019-01-10] MEDS: Ferrous Sulfate 325 MG TAB PO SCH ×2 (08:05→16:42)
[2019-01-10] MEDS ORDERED: Insulin Glargine 10 UNITS in Pre-Filled Syringe 1 EACH SC SCH (08:38)
[2019-01-10] MEDS: Carvedilol 6.25 MG TAB PO SCH ×2 (09:27→20:07)
[2019-01-10] MEDS: guaiFENesin ER 600 MG TAB PO SCH ×2 (09:27→20:07)
[2019-01-10] MEDS: Amlodipine 10 MG TAB PO SCH (09:27)
[2019-01-10] MEDS: Lisinopril 20 MG TAB PO SCH (09:28)
[2019-01-10] MEDS: Aspirin Chewable 81 MG TAB PO SCH (09:28)
[2019-01-10] MEDS: Calcium Carbonate 500 MG ChewTAB PO SCH ×3 (09:29→20:07)
[2019-01-10] MEDS: Gabapentin 300 MG CAP PO SCH (09:29)
[2019-01-10] MEDS: Enoxaparin Sodium 40 MG/0.4 ML SYRINGE SC SCH (09:29)
[2019-01-10] MEDS: Fish Oil 1,000 MG CAP PO SCH (09:29)
[2019-01-10] MEDS: Furosemide 80 MG TAB PO SCH (09:29)
[2019-01-10] MEDS: Sodium Chloride 1 GM TAB PO SCH ×3 (09:29→20:07)
[2019-01-10] MEDS: Atorvastatin Calcium 40 MG TAB PO SCH (09:29)
[2019-01-10] MEDS: Acetaminophen 500 MG TAB PO PRN (19:14)
[2019-01-10 20:50] VITALS: BP 136/74; TEMP 97.8
--- NOTE | 2019-01-13 12:42 | DIS ---
DATE OF ADMISSION: 12/18/2018 DATE OF DISCHARGE: 01/10/2019 RESIDENT: Lindy Louis MD ADMITTING ATTENDING: Marychuy Alonzo MD DISCHARGE ATTENDING: Romie Bahena MD CONSULTS: 1. General Surgery, Dr. Ellie Plaza on 12/19/2018. 2. Nephrology, Dr. Andrei Sargent on 01/05/2019. PROCEDURES: 1. Chest x-ray on 12/18/2018, no acute findings. 2. Foot x-ray on 12/18/2018, degenerative changes and vascular calcification of right foot. No osseous abnormality noted. 3. Left lower extremity MRI, 12/19/2018. Unremarkable MRI of the foot. 4. Left [id number] amputation on 12/20/2018. 5. Renal ultrasound on 12/22/2018. Normal renal sonogram. 6. Chest x-ray on 12/29/2018, findings postop midline sternotomy. Cardiomegaly with bilateral vascular congestion and bilateral interstitial edema and pleural effusions, greater on the left side. 7. Chest x-ray on 12/30/2018, bibasilar pleural and parenchymal opacities suggest pulmonary edema. 8. Chest and thorax CT on 12/30/2018, no CT evidence of pulmonary embolus. 9. Electrocardiogram on 12/30/2018, ejection fraction 50% to 55%, moderate mitral regurg is present, mild to moderate aortic stenosis is present, mild aortic regurg is noted, mild tricuspid regurgitation. 10. Chest x-ray on 01/01/2019, cardiomegaly with overall stable appearing vascular congestion, interstitial and alveolar opacities and pleural changes, greater in the left base. 11. Lower extremity CT on 01/02/2019. CT left lower extremity, no acute fracture or subluxation is evident. Expected complex fluid density seen at the below-knee amputation site consistent with the patient's recent postoperative state of recent BKA. Extensive reticulation and subcutaneous fat of the left thigh and below- knee amputation stump can be seen with lymphedema. It can also be seen with cellulitis currently clinically. PRIMARY DIAGNOSES: 1. Sepsis secondary to dry gangrene of the left 1st toe, status post left vihtz-avk-bdda amputation, resolved. 2. Acute on chronic congestive heart failure, resolved. 3. Hyponatremia secondary to chronic kidney disease, improved. SECONDARY DIAGNOSES: 1. Acute kidney injury on chronic kidney disease 3. 2. Anemia, likely secondary to chronic kidney disease. 3. Diabetes mellitus 2, uncontrolled. 4. Coronary artery disease, status post coronary artery bypass graft. 5. Hypertension, stable. DISCHARGE MEDICATIONS: He takes, 1. Ferrous sulfate 325 mg p.o. b.i.d. with meals. 2. Carvedilol 6.25 mg p.o. b.i.d. 3. Epoetin 10,000 units subcutaneously every 7 days. 4. Zofran 4 mg p.o. q.8 hours p.r.n. 5. Gabapentin 300 mg p.o. daily. 6. Lantus 10 units subcu every morning. 7. Lisinopril 30 mg p.o. daily. 8. Melatonin 3 mg p.o. at bedtime as needed for insomnia. 9. Pantoprazole 40 mg p.o. daily. 10. MiraLAX 17 g p.o. daily as needed for constipation. 11. Senokot 1 tablet p.o. b.i.d. as needed for constipation. 12. Atorvastatin 40 mg p.o. daily. 13. Aspirin 81 mg p.o. daily. 14. Amlodipine 5 mg p.o. b.i.d. 15. Fish oil 1 capsule p.o. daily. DISCONTINUED MEDICATIONS: 1. Coreg 25 mg p.o. b.i.d. 2. Liraglutide 18 mg subcu daily. 3. Insulin glargine 100 units subcu daily. HISTORY OF PRESENT ILLNESS AND HOSPITAL COURSE: This is a 63-year-old male with uncontrolled type 2 diabetes mellitus, coronary artery disease status post CABG , and CKD 3, presenting for a left first toe infection. Three weeks prior, he has had ingrown toenail removed by bundle tier and labeler followed by infection. He was admitted at [facility], he received 1 week of IV antibiotics and then recommended having amputation. The patient left for a second opinion. He saw a bundle tier and labeler, Dr. Calderon at [facility], who said he could save the foot. He has been on p.o. Augmentin, with toe pain worsening since. He presented for a low blood glucose and feeling cold. He denied fever, otherwise he is feeling well, had intermittent throbbing of the foot, but denied pain currently. He was started on vancomycin and Zosyn and given Tylenol for pain control. He was found to be in sepsis secondary to dry gangrene of his left first toe. It was decided to have a left BKA with Dr. Plaza. After the procedure, the patient's stay was complicated by anemia. FOBT was positive, the patient will need an outpatient colonoscopy to evaluate for GI bleed. He was started on iron and his hemoglobin improved. The patient also developed pulmonary edema thought to be secondary to acute on chronic congestive heart failure after his procedure. An echo on December 27, showed ejection fraction 50% to 55% without diastolic dysfunction. It was thought to be most likely fluid retention secondary to poor renal function. Nephrology was consulted. The patient also developed hyponatremia secondary that CKD. This improved with strict fluid restriction, p.o. Lasix, and salt tab taken with Tums. At discharge, the patient's sodium was 131; at admission, it was 129. The patient was discontinued on furosemide and should have his electrolytes rechecked after discharge. He was continued on strict fluid restriction at discharge. The patient's diabetes mellitus was uncontrolled at admission. His A1c was 12.1. He was having low blood sugars after his amputation, and his diabetes medications were stopped for a few days. His medications were restarted at a lower dose as his blood sugars started to climb. At discharge, he was on 10 units of Lantus in the morning. The patient needs continued outpatient management for control of his diabetes. DISPOSITION: Stable. DISCHARGE INSTRUCTIONS: 1. Location: Rehab. 2. Diet: Diabetic diet. Fluid restrict to 800 mL daily, heart healthy diet. 3. Activity: As tolerated. No restrictions. 4. Follow up with Dr. Indra Ayala in 2 weeks, please consider colonscopy for +FOBT during his hospitalization, as well as recheck his potassium and sodium, and further diabetic medical management. Follow up with MD Renaldo, Nephrology in 7 days. Job ID: [id number] [id number]
== END 2019-01-10 20:45 | DRG 853 ==
LOC: ERS 19:52 → 3SE 21:15 → SURG A 12-20 11:08 → IMCU/EMU 12-30 03:52 → SURG B 12-31 17:02
PROVIDERS: ADMIT Student in an Organized Health Care Education/Training Program; ATTEND Student in an Organized Health Care Education/Training Program
PROC: 0Y6J0Z1 Detachment at Left Lower Leg, High, Open Approach (ICD-10-PCS; principal; 2018-12-20)
PROC: 30233N1 Transfusion of Nonautologous Red Blood Cells into Peripheral Vein, Percutaneous Approach (ICD-10-PCS; 2018-12-22)
DX: A41.9 Sepsis, unspecified organism (principal); J96.01 Acute respiratory failure with hypoxia; I50.33 Acute on chronic diastolic (congestive) heart failure; E87.1 Hypo-osmolality and hyponatremia; N17.9 Acute kidney failure, unspecified; E87.2 Acidosis; I13.0 Hypertensive heart and chronic kidney disease with heart failure and stage 1 through stage 4 chronic kidney disease, or unspecified chronic kidney disease; I96 Gangrene, not elsewhere classified; E11.52 Type 2 diabetes mellitus with diabetic peripheral angiopathy with gangrene; E11.22 Type 2 diabetes mellitus with diabetic chronic kidney disease; N18.3 Chronic kidney disease, stage 3 (moderate); I25.10 Atherosclerotic heart disease of native coronary artery without angina pectoris; D63.1 Anemia in chronic kidney disease; E11.649 Type 2 diabetes mellitus with hypoglycemia without coma; Z79.82 Long term (current) use of aspirin; Z79.899 Other long term (current) drug therapy; Z95.1 Presence of aortocoronary bypass graft
CPT/HCPCS: 36415; 36416; 36430; 71045; 71275; 76770; 80048; 80053; 80202; 81003; 82274; 82533; 82607; 82728; 82747; 82805; 83540; 83550; 83605; 83880; 83930; 83935; 84145; 84300; 84443; 84550; 85025; 85652; 86140; 86850; 86900; 86901; 87040; 87077; 87149; 87186; 87340; 87804; 88307; 88311; 93005; 93010; 93306; 94640; 94660; 96365; 96367; A9577; J0131; J1100; J1650; J1825; J1940; J2270; J2310; J2405; J2543; J2550; J2704; J3010; J3370; J7050; J7620; L8440; P9016; Q4081; Q9966

== ENCOUNTER 2022-08-03 07:30 | Outpatient (CLI) | payer MEDICARE, OTHER | END 2022-08-03 07:31 | disposition home or self-care (01) | LOC: ULT 07:30 | PROVIDERS: ATTEND Internal Medicine Nephrology | DX: N18.5 Chronic kidney disease, stage 5 (principal) | CPT/HCPCS: 93970 ==

== ENCOUNTER 2022-08-22 11:49 | Outpatient (CLI) | payer MEDICARE, OTHER ==
[2022-08-22 14:46] LABS: #Basophils 0.1 10x3/uL (0.0-0.2); #Eosinphils 0.3 10x3/uL (0.0-0.5); #Monocytes 0.6 10x3/uL (0.0-1.1); #Neutrophils 4.3 10x3/uL (1.5-8.4); %Basophils 1.2 % (0.0-2.0); %Eosinophils 5.2 % (0.0-6.0); %Lymphocytes 19.5 % (18.0-47.0); %Monocytes 8.7 % (0.0-10.0); %Neutrophils 64.9 % (40.0-75.0); Hemoglobin 10.9 g/dL (13.5-17.5); Mean Corpuscular HGB CONC 32.7 g/dL (32.0-36.0); Mean Corpuscular Hemoglobin 28.5 pg (27.0-33.0); Mean Corpuscular Volume 86.9 fl (81.2-95.1); Platelet Count 293 10x3/uL (150-450); RBC Distribution Width 15.6 % (11.5-14.5); Red Blood Cell (RBC) Count 3.83 10x6/uL (4.32-5.72); White Blood Cell (WBC) Count 6.6 10x3/uL (3.5-10.5)
[2022-08-22 15:07] LABS: Anion Gap 19 mmol/L (10-20); BUN (Urea Nitrogen) 56 mg/dL (8.4-25.7); Calc. Creatinine Clearance 0 mL/min (70-130); Calcium 7.3 mg/dL (7.8-10.44); Carbon Dioxide 18 mmol/L (23-31); Chloride 103 mmol/L (98-107); Estimated GFR 8; Glucose 101 mg/dL (80-115); Potassium 4.8 mmol/L (3.5-5.1); Sodium 135 mmol/L (136-145)
== END 2022-08-22 11:50 | disposition home or self-care (01) ==
LOC: LABBT 11:49
PROVIDERS: ATTEND Specialist
DX: Z01.818 Encounter for other preprocedural examination (principal); Z20.822 Contact with and (suspected) exposure to COVID-19
CPT/HCPCS: 80048; 85025; 87811; 93005; 93010

== ENCOUNTER 2022-10-12 13:30 | Outpatient (CLI) | payer MEDICARE, OTHER | END 2022-10-12 13:31 | disposition home or self-care (01) | LOC: RAD 13:30 | PROVIDERS: ATTEND Internal Medicine Nephrology | DX: I12.0 Hypertensive chronic kidney disease with stage 5 chronic kidney disease or end stage renal disease (principal); N18.5 Chronic kidney disease, stage 5 | CPT/HCPCS: 71046 ==

== ENCOUNTER 2022-10-27 08:15 | Day surgery (SDC) | payer MEDICARE, OTHER ==
[2022-10-26 11:35] VITALS: BMI 30.2
[2022-10-27 09:02] LABS: #Basophils 0.1 thou/uL (0.0-0.2); #Eosinphils 1.2 thou/uL (0.0-0.7); #Lymphocytes 1.4 thou/uL (1.20-3.40); #Monocytes 0.5 thou/uL (0.11-0.59); #Neutrophils 4.5 thou/uL (1.40-6.50); %Basophils 1.1 % (0.0-1.0); %Eosinophils 15.9 % (0.0-10.0); %Lymphocytes 18.1 % (21.0-51.0); %Monocytes 6.1 % (0.0-10.0); %Neutrophils 58.8 % (42.0-75.0); Hemoglobin 12.4 g/dL (14.0-18.0); Mean Corpuscular HGB CONC 30.7 g/dL (32.0-36.0); Mean Corpuscular Hemoglobin 27.2 pg (27.0-31.0); Mean Corpuscular Volume 88.7 fl (78.0-98.0); Platelet Count 226 10x3/uL (130-400); Red Blood Cell (RBC) Count 4.56 mill/uL (4.70-6.10); White Blood Cell (WBC) Count 7.7 10x3/uL (4.8-10.8)
[2022-10-27 09:22] LABS: Anion Gap 14 mmol/L (10-20); BUN (Urea Nitrogen) 59 mg/dL (8.4-25.7); Calc. Creatinine Clearance 11 mL/min (70-130); Calcium 7.8 mg/dL (7.8-10.44); Carbon Dioxide 18 mmol/L (23-31); Chloride 106 mmol/L (98-107); Estimated GFR 8; Glucose 88 mg/dL (80-115); Potassium 4.1 mmol/L (3.5-5.1); Sodium 134 mmol/L (136-145)
[2022-10-27] MEDS ORDERED: Lidocaine 1% PF 5 ML VIAL ONE (11:01)
[2022-10-27] MEDS ORDERED: Bupivacaine HCl 0.5%/Epinephrine 1:200,000/PF 30 ml Vial ONE (11:02)
[2022-10-27] MEDS ORDERED: Propofol 500 MG/50 ML VIAL ONE (11:10)
[2022-10-27] MEDS ORDERED: CEFAZOLIN 2 GM VIAL ONE (11:13)
[2022-10-27] MEDS ORDERED: Sodium Chloride 0.9% 100 ML ONE (11:13)
[2022-10-27] MEDS ORDERED: PROPOFOL 200 MG/20 ML VIAL ONE (11:22)
== END 2022-10-27 13:04 | disposition home or self-care (01) ==
LOC: SDC 08:15
PROVIDERS: ATTEND Specialist
PROC: 02HV33Z Insertion of Infusion Device into Superior Vena Cava, Percutaneous Approach (ICD-10-PCS; principal; 2022-10-27)
DX: I12.0 Hypertensive chronic kidney disease with stage 5 chronic kidney disease or end stage renal disease (principal); N18.6 End stage renal disease; E78.00 Pure hypercholesterolemia, unspecified; Z87.891 Personal history of nicotine dependence; Z79.02 Long term (current) use of antithrombotics/antiplatelets; Z79.82 Long term (current) use of aspirin; Z79.899 Other long term (current) drug therapy; Z88.1 Allergy status to other antibiotic agents; Z88.5 Allergy status to narcotic agent; Z95.1 Presence of aortocoronary bypass graft; Z89.411 Acquired absence of right great toe; Z89.421 Acquired absence of other right toe(s); Z89.512 Acquired absence of left leg below knee; Z99.2 Dependence on renal dialysis
CPT/HCPCS: 36558; 71045; 80048; 85025; C1752; J1642; J2704; J3490

== ENCOUNTER 2022-11-28 09:27 | Day surgery (SDC) | payer MEDICARE, OTHER ==
[2022-11-24 16:23] VITALS: BMI 30.4
[2022-11-28 10:50] LABS: #Basophils 0.1 thou/uL (0.0-0.2); #Eosinphils 0.8 thou/uL (0.0-0.7); #Lymphocytes 1.5 thou/uL (1.20-3.40); #Monocytes 0.5 thou/uL (0.11-0.59); #Neutrophils 5.3 thou/uL (1.40-6.50); %Basophils 0.6 % (0.0-1.0); %Eosinophils 9.9 % (0.0-10.0); %Lymphocytes 18.6 % (21.0-51.0); %Monocytes 6.4 % (0.0-10.0); %Neutrophils 64.5 % (42.0-75.0); Hemoglobin 9.8 g/dL (14.0-18.0); Mean Corpuscular Volume 90.5 fl (78.0-98.0); Mean Platelet Volume 8.7 fL (7.4-10.4); Platelet Count 181 10x3/uL (130-400); RBC Distribution Width 18.1 % (11.5-14.5); Red Blood Cell (RBC) Count 3.37 mill/uL (4.70-6.10); White Blood Cell (WBC) Count 8.2 10x3/uL (4.8-10.8)
[2022-11-28] MEDS ORDERED: Fentanyl 100 MCG/2 ML VIAL ONE (11:05)
[2022-11-28] MEDS ORDERED: Bupivacaine PF 0.5% 30 ML VIAL ONE (11:05)
[2022-11-28 11:12] LABS: Anion Gap 10 mmol/L (10-20); BUN (Urea Nitrogen) 18 mg/dL (8.4-25.7); Calc. Creatinine Clearance 18 mL/min (70-130); Calcium 7.5 mg/dL (7.8-10.44); Carbon Dioxide 29 mmol/L (23-31); Chloride 101 mmol/L (98-107); Estimated GFR 13; Glucose 79 mg/dL (80-115); Potassium 3.8 mmol/L (3.5-5.1); Sodium 136 mmol/L (136-145)
[2022-11-28] MEDS ORDERED: Famotidine/PF 20 mg/2ml Vial ONE (11:31)
[2022-11-28] MEDS ORDERED: PROPOFOL 80 ML ONE (11:31)
[2022-11-28] MEDS ORDERED: Heparin 5,000 UNITS/ML VIAL ONE (12:00)
[2022-11-28] MEDS ORDERED: Bupivacaine HCl 0.5%/Epinephrine 1:200,000/PF 30 ml Vial ONE (12:00)
[2022-11-28] MEDS ORDERED: Protamine Sulfate 50 MG/5 ML VIAL ONE (12:00)
[2022-11-28] MEDS ORDERED: Iopamidol 15 ML ONE ×2 (12:00→12:04)
[2022-11-28] MEDS ORDERED: Lidocaine 2% PF 5 ML VIAL ONE (12:00)
[2022-11-28] MEDS ORDERED: CEFAZOLIN 2 GM VIAL ONE (12:07)
[2022-11-28] MEDS ORDERED: Sodium Chloride 0.9% 100 ML ONE (12:07)
[2022-11-28] MEDS ORDERED: Ondansetron PF 4 MG/2 ML Vial ONE (12:16)
[2022-11-28] MEDS ORDERED: Metoclopramide HCl 10 MG/2 ML VIAL ONE (12:16)
[2022-11-28] MEDS ORDERED: Iopamidol 30 ML ONE (12:53)
[2022-11-28] MEDS ORDERED: Ondansetron HCl/PF 4 MG/2 ML Vial IVP PRN (14:02)
[2022-11-28] MEDS ORDERED: Promethazine HCl 25 MG/ML VIAL IVPB PRN (14:02)
[2022-11-28] MEDS ORDERED: Promethazine HCl 25 MG/ML VIAL IM PRN (14:02)
[2022-11-28] MEDS ORDERED: Heparin 10,000 UNITS/ 10 ML VIAL ONE (14:31)
== END 2022-11-28 15:28 | disposition home or self-care (01) ==
LOC: SDC 09:27
PROVIDERS: ATTEND Specialist
PROC: 03LB0ZZ Occlusion of Right Radial Artery, Open Approach (ICD-10-PCS; principal; 2022-11-28)
PROC: 031B0ZF Bypass Right Radial Artery to Lower Arm Vein, Open Approach (ICD-10-PCS; 2022-11-28)
DX: I12.0 Hypertensive chronic kidney disease with stage 5 chronic kidney disease or end stage renal disease (principal); E11.22 Type 2 diabetes mellitus with diabetic chronic kidney disease; N18.6 End stage renal disease; T82.510A Breakdown (mechanical) of surgically created arteriovenous fistula, initial encounter; E11.51 Type 2 diabetes mellitus with diabetic peripheral angiopathy without gangrene; I70.208 Unspecified atherosclerosis of native arteries of extremities, other extremity; Z87.891 Personal history of nicotine dependence; Z79.02 Long term (current) use of antithrombotics/antiplatelets; Z79.82 Long term (current) use of aspirin; Z79.899 Other long term (current) drug therapy; Z88.5 Allergy status to narcotic agent; Z89.411 Acquired absence of right great toe; Z89.421 Acquired absence of other right toe(s); Z89.512 Acquired absence of left leg below knee; Z95.1 Presence of aortocoronary bypass graft; Z99.2 Dependence on renal dialysis; Y81.3 Surgical instruments, materials and general- and plastic-surgery devices (including sutures) associated with adverse incidents
CPT/HCPCS: 80048; 85025; C1776; J1642; J1644; J2001; J2405; J2704; J2720; J2765; J3010; J3490; Q9967; S0020; S0028